=== PATIENT | male | born 1940 | race Caucasian/White ===

== ENCOUNTER 2024-05-02 16:57 | Inpatient (IN) | payer MEDICARE, BC, SELFPAY ==
[2024-05-02] VITALS (10 sets, daily range): BP systolic 77–145; BP diastolic 46–95; PULSE 90–150; RESP 20–28; TEMP 33.9–37.8; O2SAT 70–100; BMI 19.5
--- NOTE | 2024-05-02 16:59 | PC.NURSE ---
Patient to er via ems for possible OD on Xanax and oxycodone, unknown amount and unknown time, patient given 4mg Narcan IN by Fire dept. and 2m Narcan iv, zofran 4mg iv by ems, currently patient awake and moving extremities, groaning intermittently, saying a few incomprehesible words, Dr. Russell at bedside. new orders received.
--- NOTE | 2024-05-02 17:03 | XR_ITS ---
Examination: AP chest single view Technique one AP portable supine chest single view Exam date and time: May 02, 2024 1804 hrs. Comparison 12/31/2023 Indications: Chest pain today. Findings: Mild heart failure Mild enlargement cardiac contour with prominent vascular congestion and septal edema in the perihilar lung bases region Consider superimposed pneumonia left upper lobe Unipolar ventricular lead satisfactory position Impression: Mild CHF Suspicious for early pneumonia left upper lobe
--- NOTE | 2024-05-02 17:03 | EKG_ITS ---
[facility] Test Date: 2024-05-02 Pat Name: ALEJANDRA YA Department: Room: - Gender: Male [employer] General: : 1940 Requested By: Lillie Kwon Order Number: [id number] Reading MD: Lillie Kwon Measurements Intervals [place] Rate: 103 P: OK: QRS: 72 QRSD: 93 T: -15 QT: 283 QTc: 370 Interpretive Statements ATRIAL FIBRILLATION WITH RAPID VENTRICULAR RESPONSE INCOMPLETE RIGHT BUNDLE BRANCH BLOCK [90+ ms QRS DURATION, TERMINAL R IN V1/V2, 40+ ms S IN I/aVL/V4/V5/V6] NONSPECIFIC ST & T-WAVE ABNORMALITY Compared to ECG 02/01/2024 00:53:00 Incomplete right bundle-branch block now present T-wave abnormality now present /store/S0/[id number]/ecg/[id number].pdf
--- NOTE | 2024-05-02 17:04 | XR_ITS ---
Examination: CT brain head without contrast. 2-D sagittal coronal reconstructions Date and time of exam:May 02, 2024 1718 hrs. Comparison 12/31/2023 Indications: Altered mental status today CTDI: vol (mGy):47.5 DLP: (mGycm):985 Technique: Multiple CT axial sections of the brain have been obtained, 5 mm slice thickness. Contrast has not been administered. 2-D sagittal, coronal reconstructions have been obtained Low dose protocols were performed. One or more of the following dose reduction techniques were used; automated exposure control, adjustment of the mA and/or KV according to patient size, use of iterative reconstruction technique. Findings: No significant ventricular enlargement. Stable small area of encephalomalacia left parietal lobe Intra-axial or extra-axial hemorrhage density is not seen. No mass effect or midline shift Basal cisterns are not remarkable. Fourth ventricle is midline. Cranial vault intact. Significant left sphenoid sinusitis Impression: Negative for acute hemorrhage, mass effect or midline shift Advise clinical correlation follow-up accordingly
[2024-05-02 17:15] LABS: Basophils % (Auto) 0 % (0-2.5); Eosinophils # (Auto) 0.1 Thou/mm3 (0.0-0.5); Eosinophils % (Auto) 1 % (0-10); Hemoglobin 12.4 g/dL (13.5-16.0); Immature Granulocytes % (Auto) 1 % (0-0); Immature Granulocytes Auto 0.13 Thou/mm3 (0.00-0.00); Lymphocytes # (Auto) 1.6 Thou/mm3 (1.0-4.8); Lymphocytes % (Auto) 11 % (10-50); Mean Corpuscular HGB Conc 32.6 g/dl (31.0-37.0); Mean Corpuscular Hemoglobin 34.1 pg (25.0-35.0); Mean Corpuscular Volume 104 fL (80-100); Monocytes # (Auto) 0.7 Thou/mm3 (0.0-0.8); Monocytes % (Auto) 5 % (0-12); Neutrophils # (Auto) 11.8 Thou/mm3 (1.8-7.7); Neutrophils % (Auto) 83 % (37-80); Nucleated Red Blood Cell % 0 /100 WBC (0); Platelet Count 338 Thou/mm3 (140-440); RDW Standard Deviation 57.4 fL (35.1-43.9); Red Blood Count 3.64 Miln/mm3 (4.50-5.90); White Blood Count 14.2 Thou/mm3 (3.8-10.6)
--- NOTE | 2024-05-02 17:28 | PC.LAC ---
unable to do mental healh assessment and columbia scale do to patient altered mental status.
[2024-05-02 17:30] LABS: INR 1.2 (0.9-1.3); Partial Thromboplastin Time 24.9 Seconds (22.0-36.0); Prothrombin Time 12.8 Seconds (9.0-12.2)
[2024-05-02 17:34] LABS: Collection Type, Urine Clean Catch
[2024-05-02 17:38] LABS: Bilirubin,Urine Negative (Negative); Blood,Urine 2+ (Negative); Clarity,Urine Clear (Clear/Hazy); Color,Urine Lt-Yellow (Lt Yel-Yel); Culture Indicated,Urine Not Indicated; Glucose, Urine Negative (Negative); Ketones,Urine Negative (Negative); Leukocyte Esterase,Urine Negative (Negative); Nitrite,Urine Negative (Negative); Protein,Urine Negative (Neg - Trace); RBC,Urine 18 /hpf (0-3); Squamous Epithelial Cell,Urine < 1 /hpf (0-5); Urobilinogen,Urine Negative mg/dL (0.0-1.0); WBC,Urine 2 /hpf (0-5)
--- NOTE | 2024-05-02 17:41 | PD.EDOVER ---
ED Overdose RME/HPI General Chief Complaint: Overdose Stated Complaint: OD Time Seen by Provider: 05/02/24 16:59 Arrival date/time: 05/02/24 16:57 RME / HPI RME / HPI Narrative: DR. RUSSELL MAIN ED EVALUATION: 83 year old male presents to the Emergency Department [facility] with complaint of overdosing on Ativan and Oxycodone 30. Patient was found down at home and EMS was called and fire arrived first on scene and started bagging the patient. Fire gave intranasal Narcan and then EMS gave more including IV Narcan, total of 4 intranasal and 2 IV Narcan given. The bottles were mostly full so patient probably accidentally overdosed. PMHx: Atrial fibrillation, hypertension, peripheral osteoarthritis, recurrent ground-level mechanical falls (secondary to syncopal episodes due to symptomatic bradycardia). Related Data Home Medications ?Medication ?Instructions ?Recorded ?Confirmed alprazolam 2 mg tablet 2 mg PO BID 01/08/21 01/01/24 sertraline 50 mg tablet 50 mg PO TID 01/08/21 01/01/24 apixaban 5 mg tablet (Eliquis) 5 mg PO BID 04/04/22 01/01/24 amlodipine 5 mg-benazepril 20 mg 1 cap PO BID 01/01/24 01/01/24 capsule finasteride 5 mg tablet 5 mg PO QDAY 01/01/24 01/01/24 gabapentin 400 mg tablet 400 mg PO TID 01/01/24 01/01/24 tamsulosin 0.4 mg capsule 0.4 mg PO QDAY 01/01/24 01/01/24 Allergies Allergy/AdvReac Type Severity Reaction Status Date / Time No Known Allergies Allergy Verified 01/08/21 02:47 Review of Systems Review of Systems ROS Unobtainable: unobtainable due to mental status Past Medical History Past Medical History CARDIAC: Positive Atrial Fibrillation, Hypercholesterolemia, Congestive Heart Failure and Hypertension MUSCULOSKELETAL: Positive Arthritis OTHER HISTORY: Positive Falls Surgical History SURGICAL: Positive Pacemaker Social History SMOKING STATUS: Unknown if ever smoked SECOND HAND EXPOSURE: No ED Exam Narrative Physical exam: GENERAL APPEARANCE: sleepy but arousable; after EMS gave Narcan, the patient was waking up more, well-developed, well-nourished. VITALS: All vitals were reviewed and the pulse ox is 100% on oxymask with flow rate 10. HEENT: Normocephalic, atraumatic; pupils equal, round, reactive to light; EOMI; mucous membranes pink, moist; oropharynx clear NECK: Supple LUNGS: CTABL; no wheezes, no rales, no rhonchi HEART: Regular rate, regular rhythm; normal S1, S2; no murmurs ABDOMEN: non distended; normal BS; soft, no tenderness, no guarding, no rebound; no masses, no organomegaly, no hernia BACK: no CVA tenderness EXTREMITIES: atraumatic; no edema NEUROLOGIC: awake; alert and oriented; cranial nerves II-XII grossly intact; no focal sensory or motor deficits PSYCHIATRIC: appropriate mood and affect SKIN: warm, dry, normal color; no rashes Course Course Course Narrative: 1800: Patient was signed out to Dr. Aquino. Past medical, surgical, social and family history reviewed. Vitals and home medications reviewed. Results and treatment plan discussed. They will assume the care of the patient at this time and will follow the patient, pending diagnostic tests and final disposition. Quality Measures none Orders Category Date Time Status Bedside COVID-19 Antigen Test NOW Care 05/03/24 01:50 Active COVID-19 Screening Questionnaire NOW Care 05/03/24 00:[address] Screening NOW Care 05/02/24 21:51 Active Orthotic/Prosthetic Practitioner NOW Care 05/02/24 17:03 Active Decision to Admit X1 Care 05/03/24 00:48 Completed EKG (ED ONLY) *Do not use* NOW Care 05/02/24 17:03 Completed In and Out Catheter X1 Care 05/02/24 17:22 Completed Initiate Warming Therapy NOW Care 05/02/24 17:[address] abdomen pelvis w con Stat Exams 05/02/24 21:[address] head/brain wo con Stat Exams 05/02/24 17:[address] lumbar spine wo con Stat Exams 05/03/24 01:42 Completed EKG (ED Only) Stat Exams 05/02/24 17:03 Draft XR chest 1V portable Stat Exams 05/02/24 17:03 Completed Acetaminophen Stat Lab 05/02/24 21:36 Completed B-Type Natriuretic Peptide Stat Lab 05/02/24 17:08 Completed Blood Culture (Lab) Stat Lab 05/02/24 18:12 Received CBC Stat Lab 05/02/24 17:08 Completed Comprehensive Metabolic Panel Stat Lab 05/02/24 18:08 Completed Drug Screen,Urine Stat Lab 05/02/24 17:30 Completed Lactate (Lactic Acid) Stat Lab 05/02/24 18:08 Completed Lactic Acid [Lactate (Lactic Acid)] Stat Lab 05/02/24 21:36 Completed Magnesium Stat Lab 05/02/24 18:08 Completed Partial Thromboplastin Time Stat Lab 05/02/24 17:08 Completed Procalcitonin Stat Lab 05/02/24 18:08 Completed Prothrombin Time with INR Stat Lab 05/02/24 17:08 Completed Troponin I Stat Lab 05/02/24 18:08 Completed UA, C/S IF [Urinalysis, C/S if Indicated] Stat Lab 05/02/24 17:30 Completed Azithromycin Inj [Zithromax Inj] 500 mg Med 05/02/24 18:44 Discontinued Sodium Chloride 0.9% 250 ml [Ns] 250 ml IV X1 Sodium Chloride 0.9% 1000 ml [Ns] 2,259 ml Med 05/02/24 20:42 Discontinued IV 2,259 mls/hr cefTRIAXone [Rocephin] 1,000 mg Med 05/02/24 18:44 Discontinued Sodium Chloride 0.9% (P) [Ns 0.9% (P)] 50 ml IV X1 Oxygen Delivery PRN RT 05/02/24 17:15 Active Vital Signs Vital signs: Vital Signs Temperature 93.0 F L 05/02/24 16:59 Pulse Rate 144 H 05/02/24 16:59 Respiratory Rate 28 H 05/02/24 16:59 Blood Pressure 145/87 H 05/02/24 16:59 Pulse Oximetry (%) 100 05/02/24 16:59 Oxygen Delivery Method Oxy Mask 05/02/24 16:59 Oxygen Flow Rate 10 05/02/24 16:59 Overdose MDM Narrative MDM Narrative:: IRhoda am scribing for and in the presence of Dr. Russell. Patient data External records reviewed:: [facility] previous records (Reviewed last ED visit dated 02/01/24, discharged with the following: Generalized weakness) and EMS form Clinical information provided by:: patient and EMS Social determinants that could affect healthcare access:: none Patient has the following chronic illnesses:: Atrial fibrillation, hypertension, peripheral osteoarthritis, recurrent ground-level mechanical falls (secondary to syncopal episodes due to symptomatic bradycardia). How is presenting disease/condition affected by chronic disease/condition?: uneffected by Evaluation data The following diagnostics were reviewed and interpreted by me:: lab results, radiology exam(s) and EKG tracing(s) (atrial fibrillation with rapid ventricular response, rate 103, incomplete right bundle branch block,) Lab and/or radiology exams considered but not ordered:: none Interpretation Summary: Pending diagnostic tests. Medications / Prescriptions Medications or Prescriptions considered but not ordered:: none Medication administrations:: Medication Administration History Acetaminophen (Acetaminophen 325 Mg Tablet) 650 mg PO Q6H PRN PRN Reason: Fever >100.4 or Pain Stop: 06/02/24 01:52 Albuterol/Ipratropium (Albuterol/Ipratropium (Duoneb) Rt Eve 3 Ml Nebu) 3 ml INH Q6HRRT PRN PRN Reason: Shortness of breath or wheezing Stop: 06/02/24 06:59 Apixaban (Apixaban 2.5 Mg Tablet) 5 mg PO BID PARDEEP Stop: 06/02/24 08:59 Azithromycin (Azithromycin 250 Mg Tablet) 500 mg PO QPM PARDEEP Stop: 05/06/24 20:59 Ceftriaxone Sodium/Dextrose (Rocephin/D5w 1gm Iv Premix) 50 mls @ 100 mls/hr IV QPM PARDEEP Stop: 05/10/24 20:59 Ondansetron HCl (Ondansetron Inj 2 Mg/Ml Inj 2 Ml) 4 mg IV Q6H PRN; Protocol PRN Reason: NAUSEA OR VOMITING Stop: 06/02/24 01:52 Discontinued Medications Ceftriaxone Sodium 1,000 mg/ (Sodium Chloride) 50 mls @ 100 mls/hr IV X1 ONE Stop: 05/02/24 19:13 Last Infusion: 05/02/24 19:51 Dose: Infused Documented By: Admin: 05/02/24 19:10 Dose: 100 mls/hr Documented By: LISA Azithromycin 500 mg/ Sodium (Chloride) 250 mls @ 250 mls/hr IV X1 ONE Stop: 05/02/24 19:43 Last Infusion: 05/02/24 20:47 Dose: Infused Documented By: Admin: 05/02/24 19:10 Dose: 250 mls/hr Documented By: LISA Sodium Chloride (Ns) 2,259 mls @ 2,259 mls/hr 30 ml/kg infuse over 60 min (2259 ml) IV .Q1H ONE Stop: 05/02/24 21:41 Last Infusion: 05/02/24 22:30 Dose: Infused Documented By: Admin: 05/02/24 20:46 Dose: 2,259 mls/hr Documented By: ADRIEN Azithromycin 500 mg/ Sodium (Chloride) 250 mls @ 250 mls/hr IV QDAY PARDEEP Stop: 05/06/24 01:56 Last Admin: 05/03/24 07:25 Dose: Not Given Documented By: BETHANY Non-Admin Reason: Discontinued Sodium Chloride (Sodium Chloride Rt 10% 15 Ml Nebu) 5 ml INH X1 ONE Stop: 05/03/24 01:54 see above if any Consultations Consultation(s) initiated? (list below): No Diagnosis Overdose Differential Diagnosis: poisoning by opiate or related narcotic, drug overdose and accidental drug ingestion Most likely diagnosis given after review of the tests above:: No official diagnoses at this time, still pending diagnostic tests. Patient signout to the maintenance technician 2nd shift provider. Admission Indicated Admission indicated?: not indicated Explain why admission is indicated or not indicated:: No final disposition plan at this time, still pending diagnostic tests. Patient signout to the maintenance technician 2nd shift provider. Admission Request Was there a request for admission?: No Disposition Plan Disposition Plan: other (specify) (Patient signout to the maintenance technician 2nd shift provider. ) Discharge Plan Plan Patient Disposition: Admit Acute Care w/in Hospital Patient condition on transfer: Stable Problem List Clinical Impression: Altered level of consciousness, Community acquired pneumonia, Hypothermia
[2024-05-02 17:44] LABS: B-Type Natriuretic Peptide 135 pg/mL (0-100)
--- NOTE | 2024-05-02 17:49 | PC.NURSE ---
Per dr. Russell, patient did not overdose, appropriate amount of medication are in his xanax and oxycodone bottles, no need to call poison control.
[2024-05-02 17:56] LABS: Amphetamine/Methamp Scrn,U Negative (Negative); Barbiturate Screen,Urine Negative (Negative); Benzodiazepines Screen,Urine Positive (Negative); Benzoylecgonine Screen, Ur Negative (Negative); Fentanyl Screen,Urine Negative (Negative); Opiate Screen,Urine Positive (Negative); THC Screen,Urine Negative (Negative)
[2024-05-02 18:21] LABS: Lactate (Lactic Acid) 3.4 mMol/L (0.4-2.0)
--- NOTE | 2024-05-02 18:40 | PC.NURSE ---
liter of LR infused from ems.
--- NOTE | 2024-05-02 18:43 | PD.EDADDENDU ---
Emergency Room Addendum Addendum Narrative: Blood pressure 91/65 with a heart rate of 94, 99% on oxygen, chest x-ray noted with left sided pneumonia.
[2024-05-02] MEDS: AZITHROMYCIN INJ 500 MG in SODIUM CHLORIDE 0.9% 250 ML 250 ML 250 MG IV (19:10)
[2024-05-02] MEDS: cefTRIAXone 1,000 MG in SODIUM CHLORIDE 0.9% (P) 50 ML 100 MG IV (19:10)
[2024-05-02 20:06] LABS: Alanine Aminotransferase 41 U/L (10-49); Albumin/Globulin Ratio 1.3 (1.2-2.2); Alkaline Phosphatase 139 U/L (46-116); Anion Gap 9 (7-16); Aspartate Amino Transferase 55 U/L (0-34); BUN/Creatinine Ratio 21 Ratio (12-20); Bilirubin,Total 0.4 mg/dL (0.3-1.2); Blood Urea Nitrogen 21 mg/dL (9-23); Calcium 9.3 mg/dL (8.3-10.6); Calcium (Corrected) 9.3 mg/dL (8.5-10.1); Carbon Dioxide 24.1 mMol/L (20.0-31.0); Chloride 107 mMol/L (98-107); Estimated Creatinine Clearance 49.4 mL/min (>60); Globulin 3.2 gm/dL (2.3-3.5); Glucose 101 mg/dL (74-106); Magnesium 2.3 mg/dL (1.6-2.6); Osmolality,Calculated 282 (275-295); Potassium 4.1 mMol/L (3.4-5.1); Procalcitonin 0.16 ng/ml (0.0-0.49); Sodium 140 mMol/L (136-145); Total Protein 7.2 gm/dL (5.7-8.2); eGFR > 60 See Note
[2024-05-02] MEDS: SODIUM CHLORIDE 0.9% 1000 ML 2,259 ML 2259 ML IV (20:46)
--- NOTE | 2024-05-02 21:03 | PD.EDADDENDU ---
Emergency Room Addendum <Rhoda Mcmullen - Last Filed: 05/02/24 22:18> Addendum Narrative: 1800: Care assumed from Dr. Russell, the previous shift emergency physician. Past medical, surgical, social and family history reviewed. Vitals and home medications reviewed. I will assume the care of the patient at this time, pending diagnostic tests and final disposition. Please refer to the emergency department record for history and examination from initial visit.? In summary, 83-year-old male with history of atrial fibrillation, hypertension, osteoarthritis, recurrent falls presenting to the emergency department after possibly overdosing accidentally on his medications at home which include Ativan and oxycodone 83 year old male presents to the Emergency Department BIB with complaint of overdosing on Ativan and Oxycodone 30. Sepsis alert initiated at 1754, before my shift. Orders made at this time are congruent with ED Adult Sepsis Order List. Re-evaluation is to be completed. 2045: Fluids started. 2114: Sepsis reassessment performed consisting of lab review, vitals, physical exam including auscultation of heart, lungs, and visual evaluation of capillary refills, mucosal membranes and extremities. Physical exam: Patient lying in the bed in a gown with bear hugger in place. Vital signs reviewed patient has a heart rate of 87, blood pressure of 90/53 and 94% O@ Able to answer questions, open eyes and knows his name is Ernesto. Lungs CTAB 2149: Blood pressure noted to be slightly hypotensive and 30 mL/kg are started. CT head is negative for acute bleed. Likely the effects of taking his additional medications could be causing his altered mental status however sepsis and other metabolic evaluation needs to be completed. While in the emergency department the urinalysis is negative. Repeat lactic acid and 4-hour Tylenol are pending. Will consider CT chest abdomen pelvis to look for additional source for hypotension. Discussed test HPI, PMHx, lab, radiology results and/or management with hospitalist. Will admit for further evaluation and management. Accepts patient for admission. Diagnoses: Altered level of consciousness, Community acquired pnemonia, Hypothermia CRITICAL CARE: TIME: 30 minutes. The high probability of sudden, clinically significant deterioration in the patient?s condition required the highest level of my preparedness to intervene urgently. The services I provided to this patient were to treat and/or prevent clinically significant deterioration. Services included the following: chart data review, reviewing nursing notes and/or old charts, documentation time, financial services consultant collaboration regarding findings and treatment options, medication orders and management, direct patient care, vital sign assessments and ordering, interpreting and reviewing diagnostic studies and lab tests. Aggregate critical care time includes only time during which I was engaged in work directly related to the patient?s care, as described above, whether at bedside or elsewhere in the Emergency Department. It did not include time spent performing other reported procedures or the services of residents, students, nurses or physician assistants. RADIOLOGY Procedure(s): CT head/brain wo con Accession Number(s): [id number] cc: Junior Blount MD; Chris Barrett MD; Lillie Russell MD~ Examination: CT brain head without contrast. 2-D sagittal coronal reconstructions Date and time of exam:May 02, 2024 1718 hrs. Comparison 12/31/2023 Indications: Altered mental status today CTDI: vol (mGy):47.5 DLP: (mGycm):985 Technique: Multiple CT axial sections of the brain have been obtained, 5 mm slice thickness. Contrast has not been administered. 2-D sagittal, coronal reconstructions have been obtained Low dose protocols were performed. One or more of the following dose reduction techniques were used; automated exposure control, adjustment of the mA and/or KV according to patient size, use of iterative reconstruction technique. Findings: No significant ventricular enlargement. Stable small area of encephalomalacia left parietal lobe Intra-axial or extra-axial hemorrhage density is not seen. No mass effect or midline shift Basal cisterns are not remarkable. Fourth ventricle is midline. Cranial vault intact. Significant left sphenoid sinusitis Impression: Negative for acute hemorrhage, mass effect or midline shift Advise clinical correlation follow-up accordingly Dictated By: Chris Barrett MD Procedure(s): XR chest 1V portable Accession Number(s): [id number] cc: Junior Blount MD; Chris Barrett MD; Lillie Russell MD~ Examination: AP chest single view Technique one AP portable supine chest single view Exam date and time: May 02, 2024 1804 hrs. Comparison 12/31/2023 Indications: Chest pain today. Findings: Mild heart failure Mild enlargement cardiac contour with prominent vascular congestion and septal edema in the perihilar lung bases region Consider superimposed pneumonia left upper lobe Unipolar ventricular lead satisfactory position Impression: Mild CHF Suspicious for early pneumonia left upper lobe Dictated By: Chris Barrett MD <Ethel Aquino MD - Last Filed: 05/02/24 21:50> Addendum Narrative: 1800: Care assumed from Dr. Russell, the previous shift emergency physician. Past medical, surgical, social and family history reviewed. Vitals and home medications reviewed. I will assume the care of the patient at this time, pending diagnostic tests and final disposition. Please refer to the emergency department record for history and examination from initial visit.? In summary, 83-year-old male with history of atrial fibrillation, hypertension, osteoarthritis, recurrent falls presenting to the emergency department after possibly overdosing accidentally on his medications at home which include Ativan and oxycodone 83 year old male presents to the Emergency Department [facility] with complaint of overdosing on Ativan and Oxycodone 30. Physical exam: Patient lying in the bed in a gown with bear hugger in place. Vital signs reviewed patient has a heart rate of 87, blood pressure of 90/53 and 94% O@ Able to answer questions, open eyes and knows his name is Ernesto. Lungs CTAB 2149: Blood pressure noted to be slightly hypotensive and 30 mL/kg are started. CT head is negative for acute bleed. Likely the effects of taking his additional medications could be causing his altered mental status however sepsis and other metabolic evaluation needs to be completed. While in the emergency department the urinalysis is negative. Repeat lactic acid and 4-hour Tylenol are pending. Will consider CT chest abdomen pelvis to look for additional source for hypotension. RADIOLOGY Procedure(s): CT head/brain wo con Accession Number(s): [id number] cc: Junior Blount MD; Chris Barrett MD; Lillie Russell MD~ Examination: CT brain head without contrast. 2-D sagittal coronal reconstructions Date and time of exam:May 02, 2024 1718 hrs. Comparison 12/31/2023 Indications: Altered mental status today CTDI: vol (mGy):47.5 DLP: (mGycm):985 Technique: Multiple CT axial sections of the brain have been obtained, 5 mm slice thickness. Contrast has not been administered. 2-D sagittal, coronal reconstructions have been obtained Low dose protocols were performed. One or more of the following dose reduction techniques were used; automated exposure control, adjustment of the mA and/or KV according to patient size, use of iterative reconstruction technique. Findings: No significant ventricular enlargement. Stable small area of encephalomalacia left parietal lobe Intra-axial or extra-axial hemorrhage density is not seen. No mass effect or midline shift Basal cisterns are not remarkable. Fourth ventricle is midline. Cranial vault intact. Significant left sphenoid sinusitis Impression: Negative for acute hemorrhage, mass effect or midline shift Advise clinical correlation follow-up accordingly Dictated By: Chris Barrett MD Procedure(s): XR chest 1V portable Accession Number(s): [id number] cc: Junior Blount MD; Chris Barrett MD; Lillie Russell MD~ Examination: AP chest single view Technique one AP portable supine chest single view Exam date and time: May 02, 2024 1804 hrs. Comparison 12/31/2023 Indications: Chest pain today. Findings: Mild heart failure Mild enlargement cardiac contour with prominent vascular congestion and septal edema in the perihilar lung bases region Consider superimposed pneumonia left upper lobe Unipolar ventricular lead satisfactory position Impression: Mild CHF Suspicious for early pneumonia left upper lobe Dictated By: Chris Barrett MD <Yolette Tu - Last Filed: 05/03/24 00:49> Addendum Narrative: 1800: Care assumed from Dr. Russell, the previous shift emergency physician. Past medical, surgical, social and family history reviewed. Vitals and home medications reviewed. I will assume the care of the patient at this time, pending diagnostic tests and final disposition. Please refer to the emergency department record for history and examination from initial visit.? In summary, 83-year-old male with history of atrial fibrillation, hypertension, osteoarthritis, recurrent falls presenting to the emergency department after possibly overdosing accidentally on his medications at home which include Ativan and oxycodone 83 year old male presents to the Emergency Department [facility] with complaint of overdosing on Ativan and Oxycodone 30. Sepsis alert initiated at 1754, before my shift. Orders made at this time are congruent with ED Adult Sepsis Order List. Re-evaluation is to be completed. 2045: Fluids started. 2114: Sepsis reassessment performed consisting of lab review, vitals, physical exam including auscultation of heart, lungs, and visual evaluation of capillary refills, mucosal membranes and extremities. Physical exam: Patient lying in the bed in a gown with bear hugger in place. Vital signs reviewed patient has a heart rate of 87, blood pressure of 90/53 and 94% O2 Able to answer questions, open eyes and knows his name is Ernesto. Lungs CTAB 2149: Blood pressure noted to be slightly hypotensive and 30 mL/kg are started. CT head is negative for acute bleed. Likely the effects of taking his additional medications could be causing his altered mental status however sepsis and other metabolic evaluation needs to be completed. While in the emergency department the urinalysis is negative. Repeat lactic acid and 4-hour Tylenol are pending. Will consider CT chest abdomen pelvis to look for additional source for hypotension. 0030: Patient does not complain of any abdominal pain at this time. 0045: Discussed test HPI, PMHx, lab, radiology results and/or management with Dr. Keith. Will admit for further evaluation and management. Accepts patient for admission. Diagnoses: Altered level of consciousness, Community acquired pneumonia, Hypothermia CRITICAL CARE: TIME: 35 minutes. The high probability of sudden, clinically significant deterioration in the patient?s condition required the highest level of my preparedness to intervene urgently. The services I provided to this patient were to treat and/or prevent clinically significant deterioration. Services included the following: chart data review, reviewing nursing notes and/or old charts, documentation time, financial services consultant collaboration regarding findings and treatment options, medication orders and management, direct patient care, vital sign assessments and ordering, interpreting and reviewing diagnostic studies and lab tests. Aggregate critical care time includes only time during which I was engaged in work directly related to the patient?s care, as described above, whether at bedside or elsewhere in the Emergency Department. It did not include time spent performing other reported procedures or the services of residents, students, nurses or physician assistants. RADIOLOGY Procedure(s): CT head/brain wo con Accession Number(s): [id number] cc: Junior Blount MD; Chris Barrett MD; Lillie Russell MD~ Examination: CT brain head without contrast. 2-D sagittal coronal reconstructions Date and time of exam:May 02, 2024 1718 hrs. Comparison 12/31/2023 Indications: Altered mental status today CTDI: vol (mGy):47.5 DLP: (mGycm):985 Technique: Multiple CT axial sections of the brain have been obtained, 5 mm slice thickness. Contrast has not been administered. 2-D sagittal, coronal reconstructions have been obtained Low dose protocols were performed. One or more of the following dose reduction techniques were used; automated exposure control, adjustment of the mA and/or KV according to patient size, use of iterative reconstruction technique. Findings: No significant ventricular enlargement. Stable small area of encephalomalacia left parietal lobe Intra-axial or extra-axial hemorrhage density is not seen. No mass effect or midline shift Basal cisterns are not remarkable. Fourth ventricle is midline. Cranial vault intact. Significant left sphenoid sinusitis Impression: Negative for acute hemorrhage, mass effect or midline shift Advise clinical correlation follow-up accordingly Dictated By: Chris Barrett MD Procedure(s): XR chest 1V portable Accession Number(s): [id number] cc: Junior Blount MD; Chris Barrett MD; Lillie Russell MD~ Examination: AP chest single view Technique one AP portable supine chest single view Exam date and time: May 02, 2024 1804 hrs. Comparison 12/31/2023 Indications: Chest pain today. Findings: Mild heart failure Mild enlargement cardiac contour with prominent vascular congestion and septal edema in the perihilar lung bases region Consider superimposed pneumonia left upper lobe Unipolar ventricular lead satisfactory position Impression: Mild CHF Suspicious for early pneumonia left upper lobe Dictated By: Chris Barrett MD [place] [facility] Report Signed Patient: ERNESTO YA. Record#: [id number] Birthdate: 1940 Age/Sex: 83 / M Location: [facility] Attending Dr: Ordering Physician: Ethel Aquino MD Date of Service: 05/02/24 Procedure(s): CT abdomen pelvis w con Accession Number(s): [id number] cc: Junior Blount MD; Chris Barrett MD; Ethel Aquino MD~ Examination: CT abdomen with intravenous contrast CT pelvis with intravenous contrast 2-D coronal reconstructions 2-D sagittal reconstructions Date and time of exam:May 02, 2024 10:44 PM Indications: Sepsis, fever unknown origin. CTDI: vol (mGy) 6.84 DLP: (mGycm) 377 Technique: Multiple axial sections of the abdomen and pelvis have been obtained. 64 slice high-resolution scanner used. 3 mm axial sections have been obtained, post intravenous injection 60 cc [id number] 2-D sagittal, coronal reconstructions obtained. Low dose protocols were performed. One or more of the following dose reduction techniques were used; automated exposure control, adjustment of the mA and/or KV according to patient size, use of iterative reconstruction technique. Findings: Moderate enlargement cardiac contour Mild atelectasis in the lower lung zones 36 mm cyst anterior liver Spleen is not enlarged Absent gallbladder Common bile duct 10 mm No pancreatic mass Aorta normal size Bilateral renal cysts, bilateral renal calculi, the largest in the lower pole left kidney 11 mm No bowel obstruction Colonic diverticulosis 14 mm calcification in distribution of the left ureterovesical junction Urinary bladder intact Bilateral hip arthroplasties obscure detail in the pelvis Severe osteopenia Impression: Absent gallbladder Common bile duct 10 mm, recommend hepatobiliary sonography follow-up Bilateral renal calculi 14 mm calcification in the left pelvis in distribution of the distal left ureter, favor phlebolith, left ureterovesical junction calculus less likely as there is no left hydronephrosis, clinical correlation advised Dictated By: Chris Barrett MD Signed By: <Electronically signed by Chris Barrett MD in [place]> 05/03/24 0000
[2024-05-02 21:17] LABS: Reflex Lactate? Y
[2024-05-02 21:47] LABS: Lactate (Lactic Acid) 0.9 mMol/L (0.4-2.0)
--- NOTE | 2024-05-02 21:50 | XR_ITS ---
Examination: CT abdomen with intravenous contrast CT pelvis with intravenous contrast 2-D coronal reconstructions 2-D sagittal reconstructions Date and time of exam:May 02, 2024 10:44 PM Indications: Sepsis, fever unknown origin. CTDI: vol (mGy) 6.84 DLP: (mGycm) 377 Technique: Multiple axial sections of the abdomen and pelvis have been obtained. 64 slice high-resolution scanner used. 3 mm axial sections have been obtained, post intravenous injection 60 cc [id number] 2-D sagittal, coronal reconstructions obtained. Low dose protocols were performed. One or more of the following dose reduction techniques were used; automated exposure control, adjustment of the mA and/or KV according to patient size, use of iterative reconstruction technique. Findings: Moderate enlargement cardiac contour Mild atelectasis in the lower lung zones 36 mm cyst anterior liver Spleen is not enlarged Absent gallbladder Common bile duct 10 mm No pancreatic mass Aorta normal size Bilateral renal cysts, bilateral renal calculi, the largest in the lower pole left kidney 11 mm No bowel obstruction Colonic diverticulosis 14 mm calcification in distribution of the left ureterovesical junction Urinary bladder intact Bilateral hip arthroplasties obscure detail in the pelvis Severe osteopenia Impression: Absent gallbladder Common bile duct 10 mm, recommend hepatobiliary sonography follow-up Bilateral renal calculi 14 mm calcification in the left pelvis in distribution of the distal left ureter, favor phlebolith, left ureterovesical junction calculus less likely as there is no left hydronephrosis, clinical correlation advised
[2024-05-02 22:45] LABS: Acetaminophen < 2.0 mcg/mL (10.0-20.0)
[2024-05-03] VITALS (8 sets, daily range): BP systolic 93–144; BP diastolic 58–97; PULSE 74–96; RESP 12–92; TEMP 36.3–37.4; O2SAT 93–100
--- NOTE | 2024-05-03 01:42 | XR_ITS ---
Examination: CT lumbar spine, without contrast. 2-D sagittal reconstructions. 2-D coronal reconstructions. 3-D reconstructions. Date and time of exam:May 03, [address] lumbar spine February 01, 2024 Indications: Back pain with lower extremity paralysis today CTDI: vol (mGy):17.7 DLP: (mGycm):454 Technique: Multiple 1.25 mm axial sections of the venous contrast have been obtained. 2-D sagittal and coronal reconstructions have been obtained. 3-D reconstructions have been obtained. Low dose protocols were performed. One or more of the following dose reduction techniques were used; automated exposure control, adjustment of the mA and/or KV according to patient size, use of iterative reconstruction technique. Findings: Prominent osteopenia Multiple Schmorl's nodes Prominent lumbar spondylosis No lumbar vertebral body compression fracture No spondylolisthesis Lumbar pedicles, laminae, transverse and posterior spinous processes intact L5-S1 3 mm central lumbar disc bulge Impression: Prominent osteopenia No lumbar fracture Multiple Schmorl's nodes No significant acquired spinal stenosis If the patient's cardiac lead is MRI compatible, consider MRI thoracic lumbar spine post intravenous contrast follow-up
--- NOTE | 2024-05-03 02:01 | ESHP_ITS ---
Documentation for date of: 05/03/24 [facility] History of Present Illness Chief complaint: Altered mental status History of present illness: Patient is a 83-year-old male with past medical history of atrial fibrillation on Eliquis, primary hypertension, osteoarthritis, chronic low back pain on opioids, symptomatic bradycardia s/p pacemaker who was BIBA from home to the ED on 05/02/2024 due to altered mental status. Patient was found down for unknown amount of time, suspected possible oxycodone and Xanax overdose, was given naloxone 6 mg total and Zofran 4 mg by EMS. Per ED documentation however medication bottles had sufficient number of pills. Patient was awake, moving extremities, groaning intermittently upon first ED evaluation. Upon evaluation for admission, patient was alert and able to provide history. He states that he does not remember what happened or why he was brought to the hospital. He is oriented to self, , location. Patient last remembers watching football at home. He denies taking any pain medication today and denies intentional overdose. He reports use of his oxycodone about 2x weekly, and states he seldom takes the Xanax. Patient had taken all his other medications as prescribed. He denies any falls. Patient states he is unable to move his legs at this time. Denies pain other than usual back pain. States that normally he walks. He endorses sore throat, cough, phlegm, and subjective fever starting yesterday. He denies shortness of breath, chest pain, nausea, vomiting, diarrhea, dysuria, or incontinence. ED Course: -Initial vitals were BP 145/87, HR 144, RR 28, Temp 93.0, O2 100% on 10L [place]. Sepsis alert was called. Patient became hypotensive to 77/51 which was fluid responsive. -EKG showed afib with RvR with rate 103 -Utox positive for opioids and benzos, UA negative -CXR showed mild CHF and suspicious for early pneumonia left upper lobe -CT head negative -CT abdomen/pelvis with contrast showed absent gallbladder, common bile duct 10 mm, recommend hepatobiliary sonography follow-up, bilateral renal calculi, 14 mm calcification in the left pelvis in distribution of the distal left ureter, favor phlebolith, left ureterovesical junction calculus less likely as there is no left hydronephrosis -Labs significant for WBC 14.2, Hgb 12.4, BUN 21, creatinine 1.0, lactic acid 3.4, AST 55, ALT 41, negative troponin, negative procalcitonin -In the ED, patient was given ceftriaxone 1 g IV x1, azithromycin 500 mg IV x1, and 2.2 L NS bolus -Patient was admitted for sepsis secondary to pneumonia and further monitoring for possible opioid/benzo overdose Review of Systems Review of systems otherwise negative except what is mentioned above. Past Medical History Past Medical History Comments PMH COMMENT: Past Medical History: Atrial fibrillation on Eliquis, primary hypertension, osteoarthritis, chronic low back pain on opioids, symptomatic bradycardia s/p pacemaker Family History: Noncontributory Surgical History: Bilateral hip replacements, left knee replacement, pacemaker placement Social History: About 20-pack year history of smoking, states he smokes less than half pack daily, occasional alcohol use, states drinks whiskey, past history of marijuana use Current Medications: Eliquis 5 mg BID, trazodone 100 mg HS, amlodipine- benezapril 5-20 mg BID, mirtazapine 30 mg HS, oxycodone 30 mg q12h prn, alprazolam 2 mg q12h prn, meloxicam 15 mg qday, sertraline 100 mg qday, tamsulosin 0.4 mg qday, albuterol prn, finasteride 5 mg qday, gabapentin 400 mg TID (Source: Pharmacy prescription history) Allergies: No known drug allergies Exam Vital Signs Temp Pulse Resp BP Pulse Ox O2 Del Method O2 Flow Rate 100.1 F 78 15 93/58 L 98 Room Air 10 05/02/24 22:25 05/03/24 00:01 05/03/24 00:01 05/03/24 00:01 05/03/24 00:01 05/03/24 00:01 05/02/24 22:25 Narrative Exam Physical Exam General: Elderly male, asleep but arousable to voice, able to answer questions appropriately but slow in response, needs repeated prompting at times. HEENT: Normocephalic, atraumatic, mucous membranes very dry. Heart: Irregular rate and rhythm, no murmurs. Lungs: Clear to auscultation with no wheezing or crackles. Abdomen: Soft, nondistended, nontender, positive bowel sounds. ?No guarding or rebound tenderness. Neurologic: Alert and oriented x3, patient unable to move bilateral lower extremities, strength 1/5. Upper extremity strength 5/5 bilaterally. Sensations intact L1-S3 dermatomes bilaterally. Reflexes intact bilaterally. Brudzinski's and Kernig's signs negative. Back: No notable lesions, erythema, warmth, or points of tenderness. Extremities: No edema, dry exfoliation bilateral shins and feet. Skin: No rash or ecchymoses. Results: Labs 05/06/24 08:59 05/06/24 08:59 Labs: Short CBC 05/02/24 Range/Units 17:08 WBC 14.2 H (3.8-10.6) Thou/mm3 Hgb 12.4 L (13.5-16.0) g/dL Hct 38.0 L (41.0-53.0) % Plt Count 338 (140-440) Thou/mm3 BMP 05/02/24 18:08 Sodium 140 Potassium 4.1 Chloride 107 Carbon Dioxide 24.1 BUN 21 Creatinine 1.0 Glucose 101 Calcium 9.3 Cardiac Enzymes 05/02/24 Range/Units 18:08 Troponin I 0.030 (0.0-0.045) ng/mL Liver Function 05/02/24 Range/Units 18:08 Total Bilirubin 0.4 (0.3-1.2) mg/dL AST 55 H (0-34) U/L ALT 41 (10-49) U/L Alkaline Phosphatase 139 H (46-116) U/L Albumin 4.0 (3.4-4.8) gm/dL Urine 05/02/24 Range/Units 17:30 Urine Color Lt-Yellow (Lt Yel-Yel) Urine Clarity Clear (Clear/Hazy) Urine pH 6.0 (5.0-7.0) Ur Specific [place] 1.010 (1.001-1.035) Urine Protein Negative (Neg - Trace) Urine Glucose (UA) Negative (Negative) Quality Measures Quality Measures none Advance care planning discussed with:: patient Medications Home Medications and Allergies Home Medications ?Medication ?Instructions ?Recorded ?Confirmed ?Type apixaban 5 mg tablet (Eliquis) 5 mg PO BID 04/04/22 05/04/24 History finasteride 5 mg tablet 5 mg PO QDAY 01/01/24 05/04/24 History tamsulosin 0.4 mg capsule 0.8 mg PO QPM 01/01/24 05/04/24 History arginine (L-arginine) 500 mg 500 mg PO UD 05/04/24 05/04/24 History capsule cetirizine 10 mg tablet (Zyrtec) 10 mg PO QDAY 05/04/24 05/04/24 History gabapentin 300 mg capsule 300 mg PO QID 05/04/24 05/04/24 History metoprolol succinate 50 mg 50 mg PO QPM 05/04/24 05/04/24 History tablet,extended release 24 hr olanzapine 5 mg tablet (Zyprexa) 5 mg PO TID 05/04/24 05/04/24 History sertraline 50 mg tablet (Zoloft) 50 mg PO BID 05/04/24 05/04/24 History Allergies Allergy/AdvReac Type Severity Reaction Status Date / Time No Known Allergies Allergy Verified 01/08/21 02:47 Visit Medications Acetaminophen (Acetaminophen 325 Mg Tablet) 650 mg PO Q6H PRN PRN Reason: Fever >100.4 or Pain Stop: 06/02/24 01:52 Albuterol/Ipratropium (Albuterol/Ipratropium (Duoneb) Rt Eve 3 Ml Nebu) 3 ml INH Q6HRRT PRN PRN Reason: Shortness of breath or wheezing Stop: 06/02/24 06:59 Apixaban (Apixaban 2.5 Mg Tablet) 5 mg PO BID PARDEEP Stop: 06/02/24 08:59 Ceftriaxone Sodium/Dextrose (Rocephin/D5w 1gm Iv Premix) 50 mls @ 100 mls/hr IV QDAY PARDEEP Stop: 05/10/24 01:56 Azithromycin 500 mg/ Sodium (Chloride) 250 mls @ 250 mls/hr IV QDAY PARDEEP Stop: 05/06/24 01:56 Ondansetron HCl (Ondansetron Inj 2 Mg/Ml Inj 2 Ml) 4 mg IV Q6H PRN; Protocol PRN Reason: NAUSEA OR VOMITING Stop: 06/02/24 01:52 Discontinued Medications Ceftriaxone Sodium 1,000 mg/ (Sodium Chloride) 50 mls @ 100 mls/hr IV X1 ONE Stop: 05/02/24 19:13 Last Infusion: 05/02/24 19:51 Dose: Infused Azithromycin 500 mg/ Sodium (Chloride) 250 mls @ 250 mls/hr IV X1 ONE Stop: 05/02/24 19:43 Last Infusion: 05/02/24 20:47 Dose: Infused Sodium Chloride (Ns) 2,259 mls @ 2,259 mls/hr 30 ml/kg infuse over 60 min (2259 ml) IV .Q1H ONE Stop: 05/02/24 21:41 Last Infusion: 05/02/24 22:30 Dose: Infused Sodium Chloride (Sodium Chloride Rt 10% 15 Ml Nebu) 5 ml INH X1 ONE Stop: 05/03/24 01:54 Assessment & Plan Plan 83-year-old male with past medical history of atrial fibrillation on Eliquis, primary hypertension, osteoarthritis, chronic low back pain on opioids, symptomatic bradycardia s/p pacemaker who was BIBA from home to the ED on 05/02/2024 due to altered mental status. He was admitted for sepsis possibly secondary to pneumonia and further monitoring of possible opioid and benzo overdose. #Severe sepsis, improving #Leukocytosis #Hypotension Secondary to #Community acquired pneumonia Patient met 4/4 SIRS criteria on initial ED evaluation with tachycardia 144, tachypneia 28, hypothermia 93.0, and leukocytosis 14.2. Lactic acid was 3.4 meeting severe sepsis criteria. Became hypotensive to 77/51, patient got 30 ml/kg per sepsis protocol and was fluid responsive with improved lactic acid. CXR shows a possible left upper lobe infiltrate although may not actually be much change from prior CXRs. However the patient does endorse cough, sore throat, phelgm, and subjective fever at home starting yesterday. His CURB-65 score is 4 points indicating recommended admission. -Started IV ceftriaxone 1g qday -Started IV azithromycin 500 mg qday -DuoNebs q6h as needed for SOB or wheezing -Wean O2 as tolerated -Warming measures as needed, Tylenol for fever >100.4 -Blood cultures pending -Ordered sputum culture #Altered mental status, improving #Possible opioid and benzodiazepine overdose Patient found down in his home, unknown mechanism. Given 6 mg naloxone with response. Known chronic opioid user with oxycodone 30 mg prescribed for low back pain. Also alprazolam 2 mg for anxiety. Utox positive for opioids and benzos. -Continue neuro checks q4h -Aspiration precautions -Bedside swallow screen - passed, started cardiac diet -Avoiding opioids and benzos #Bilateral lower extremity weakness Patient complaining of being unable to move legs. Physical exam shows 1/5 strength bilateral lower extremities. Back examination revealed no point tenderness, warmth, erythema, fluctuance suggestive of any kind of abscess. Brudzinski's and Kernig's signs negative. Patient denies falls but he was found down with unknown mechanism. Due to concern for cord compression secondary to possible fracture, CT lumbar spine was ordered. Preliminary review of the images does not show any sort of compression, mass, or abscess. Etiology remains uncertain. According to the patient he walks independently and lives alone at home. -Follow up official read CT lumbar spine -Physical therapy referral #History of afib, rate-controlled s/p pacemaker. He takes Eliquis 5 mg BID. Patient states he follows with Dr. Sharp. Upon review of prescribed meds does not appear to be on any rate or rhythm-controlling agents. EKG in ED showed rate 103, initially HR 140-150s however improved after fluid bolus. CHADS-Vasc 3 -Continue home Eliquis 5 mg BID #History of hypertension Patient takes amlodipine-benezapril 5-20 mg BID according to pharmacy records. Patient reports compliance with meds. -Holding home meds due to hypotension #History of chronic low back pain #History of anxiety Patient takes oxycodone 30 mg q12h prn. He is reporting that he does not use this often, and takes it about twice a week. Denies possibility of overdose, intentional or otherwise. Unsure of how reliable patient is. -Holding opioids DVT prophylaxis: Eliquis 5 mg BID GI prophylaxis: Not indicated Diet: Cardiac Hu: None Lines: Peripheral IV Antibiotics: ceftriaxone [05/02/2023- ], azithromycin [05/02/2023- ] CODE STATUS: FULL Reason for hospitalization: Altered mental status, possible overdose of opioid/benzos, sepsis secondary to possible pneumonia Patient plan of care was discussed with the attending physician, Dr. Camp. Rossi Encarnacion, PGY-2 Attending Provider Attestation/Addendum 83-year-old male patient with osteoarthritis, chronic low back pain, hypertension was admitted after he was found down for an unknown period of time. Patient may have overdosed with oxycodone and Xanax He received naloxone. The patient mental status improved after naloxone dose. He was found to have pneumonia will be admitted for IV antibiotic treatment and further monitoring. I discussed with and supervised the resident physician who took care of this patient. I agree with the assessment and plan as above.
[2024-05-03 04:55] LABS: Basophils % (Auto) 0 % (0-2.5); Eosinophils % (Auto) 0 % (0-10); Hemoglobin 10.3 g/dL (13.5-16.0); Immature Granulocytes % (Auto) 1 % (0-0); Immature Granulocytes Auto 0.04 Thou/mm3 (0.00-0.00); Lymphocytes # (Auto) 1.5 Thou/mm3 (1.0-4.8); Lymphocytes % (Auto) 23 % (10-50); Mean Corpuscular HGB Conc 32.2 g/dl (31.0-37.0); Mean Corpuscular Hemoglobin 33.3 pg (25.0-35.0); Mean Corpuscular Volume 104 fL (80-100); Monocytes # (Auto) 0.4 Thou/mm3 (0.0-0.8); Monocytes % (Auto) 7 % (0-12); Neutrophils # (Auto) 4.5 Thou/mm3 (1.8-7.7); Neutrophils % (Auto) 70 % (37-80); Nucleated Red Blood Cell % 0 /100 WBC (0); Platelet Count 251 Thou/mm3 (140-440); RDW Standard Deviation 56.7 fL (35.1-43.9); Red Blood Count 3.09 Miln/mm3 (4.50-5.90); White Blood Count 6.4 Thou/mm3 (3.8-10.6)
[2024-05-03 05:24] LABS: Alanine Aminotransferase 35 U/L (10-49); Albumin, Serum 3.5 gm/dL (3.4-4.8); Albumin/Globulin Ratio 1.3 (1.2-2.2); Alkaline Phosphatase 109 U/L (46-116); Anion Gap 6 (7-16); Aspartate Amino Transferase 45 U/L (0-34); BUN/Creatinine Ratio 28 Ratio (12-20); Bilirubin,Total 0.4 mg/dL (0.3-1.2); Blood Urea Nitrogen 22 mg/dL (9-23); Calcium 8.4 mg/dL (8.3-10.6); Calcium (Corrected) 8.8 mg/dL (8.5-10.1); Carbon Dioxide 26.1 mMol/L (20.0-31.0); Chloride 111 mMol/L (98-107); Creatinine (Component) 0.8 mg/dL (0.6-1.3); Estimated Creatinine Clearance 61.7 mL/min (>60); Globulin 2.7 gm/dL (2.3-3.5); Glucose 96 mg/dL (74-106); Magnesium 2.1 mg/dL (1.6-2.6); Osmolality,Calculated 288 (275-295); Potassium 4.4 mMol/L (3.4-5.1); Sodium 143 mMol/L (136-145); Total Protein 6.2 gm/dL (5.7-8.2); eGFR > 60 See Note
--- NOTE | 2024-05-03 05:28 | PRELIM_ITS ---
CT scan of the lumbar spine without intravenous contrast (axial sections with sagittal and coronal re formats) May 03, 2024 at 0335 hours Clinical History: Bilateral lower extremity paralysis. Compar michael: No prior study is available for comparison. Findings:There are diffuse osteopenia.There is mult ilevel schmoral's nodes , subcortical sclerosis and bony erosions of opposing vertebral endplates.Mod erate degenerative changes are noted in the lumbar spine in the form of marginal osteophytes, decreas ed disc spaces and facet arthropathy, most marked at the L2-L3, L3-L4 and L4-L5 levels causing no sig nificant spinal canal narrowing and mild bilateral neural foraminal narrowing. There is L2/3 ,L3/4 an d L4/5 diffuse posterior disc bulges causing mild spinal canal and neural foraminal stenosis.There is no fracture or subluxation. The soft tissues are unremarkable.Impression:1. No evidence of fracture, subluxation or significant soft tissue injury.2. Lumbar spondylosis.3. Multilevel schmoral's nodes , subcortical sclerosis and bony erosions of opposing vertebral endplates.4. Other findings as describ ed above. Report Electronically Signed By: Fransisca Avendano 05/03/2024 5:27:17 AM [EST]
--- NOTE | 2024-05-03 07:15 | PC.NURSE ---
In to assess pt. Pt with c/o lower back pain and inability to move lower extremities, states this stated when he arrived to ER. Call light placed within reach. Workup in progress, plan to admit.
--- NOTE | 2024-05-03 07:50 | PC.OT ---
Call from daughter, update provided, pt allowed to speak with daughter over the phone.
[2024-05-03] MEDS: LACTULOSE SYRUP 20 GM/30 ML UDC PO ×2 (10:21→20:20)
[2024-05-03] MEDS: APIXABAN 2.5 MG TABLET 5 MG PO (10:24)
--- NOTE | 2024-05-03 11:53 | PC.NURSE ---
teleneuro consult activated, monitor at bedside
[2024-05-03] MEDS: SENNA/DOCUSATE SOD 1 TAB TABLET 2 TAB PO ×2 (12:12→20:21)
--- NOTE | 2024-05-03 12:15 | PC.NURSE ---
TELE-NEURO CONSULT IN PROGRESS. PROVIDER AT BEDSIDE FOR RECOMMENDATIONS.
--- NOTE | 2024-05-03 12:36 | XR_ITS ---
Examination: CT thoracic spine, without contrast. 2-D sagittal reconstructions. 2-D coronal reconstructions. 3-D reconstructions. Date and time of exam:May 03, 2024 1527 hours INDICATIONS: Back pain and leg weakness beginning 2 days ago CTDI: vol (mGy):15.4 DLP: (mGycm):554 Technique: Multiple 1.25 mm axial sections of the thoracic spine without intravenous contrast have been obtained. 2-D sagittal and coronal reconstructions have been obtained. 3-D reconstructions have been obtained. Low dose protocols were performed. One or more of the following dose reduction techniques were used; automated exposure control, adjustment of the mA and/or KV according to patient size, use of iterative reconstruction technique. Findings: Severe osteopenia No thoracic fracture Diffuse [id number] thoracic degenerative disc disease Moderate thoracic spondylosis Thoracic pedicles, laminae, transverse and posterior spinous processes intact Mild bilateral pleural disease Soft tissue axial images demonstrate no focal thoracic disc protrusion IMPRESSION: Severe osteopenia No thoracic fracture Diffuse [id number] thoracic degenerative disc disease No focal thoracic disc protrusion
--- NOTE | 2024-05-03 12:39 | PD.TNEURO ---
Tele Neuro Consultation Consultation Date 05/03/24 Most Recent Vital Signs Last Vital Signs Temp 99.0 F 05/03/24 10:24 Pulse 93 05/03/24 10:24 Resp 20 05/03/24 10:24 BP 129/82 05/03/24 10:24 Pulse Ox 94 L 05/03/24 10:24 O2 Del Method Nasal Cannula 05/03/24 10:24 O2 Flow Rate 2 05/03/24 10:24 Laboratory-Coagulation Panel PT 12.8 Seconds (9.0-12.2) H 05/02/24 17:08 INR 1.2 (0.9-1.3) 05/02/24 17:08 APTT 24.9 Seconds (22.0-36.0) 05/02/24 17:08 Consultation Narrative [facility] TeleNeurology Consult Services Stat Consult Patient Name:???Ernesto Moreno Date of :???[id number] Identification Number:??? Date of Service:???05/03/2024 11:51:14 Diagnosis:?M62.81 - Generalized Muscle Weakness Impression 83 yo M with PMH of HTN, Afib on eliquis, bradycardia s/p PM who was admitted with concern for possible overdose, has been found to have PNA on abx and now noted to not be moving legs. HCT negative for acute abnormalities. CT lumbar spine did not show acute abn's. Is on abx for PNA but currently all vitals stable. Pt currenlty not moving legs and has signs of urinary retention - would be highly concerned for cauda equina syndrome. Would give 10 mg IV decadron now and transfer for emergent NSGY consultation. Would get thoracic spine CT stat if having to wait for emergent transfer. If MRI compatibility is found - would proceed with stat MRI cervical/thoracic/lumbar spine w/ and w/o contrast (likely would be at accepting facility. Further recommendations on steroids per NSGY. Neurology available for any further questions/concerns prior to transfer to accepting facility where further care will be dictated per NSGY. Advanced Imaging:Advanced Imaging Deferred because: Stroke not suspected with clinical presentation and exam Metrics: Dispatch Time: 05/03/2024 11:51:14 Callback Response Time: 05/03/2024 11:56:49 Primary Provider Notified of Diagnostic Impression and Management Plan on: 05/03/2024 12:29:46 CT HEAD: As Per Radiologist CT Head Showed No Acute Hemorrhage or Acute Core Infarct Reviewed Imagingreviewed, L-spine negative Chief Complaint: bl leg weakness History of Present Illness:Patient is a 83 year old Male. 83 yo M with PMH of HTN, Afib on eliquis, bradycardia s/p PM who was admitted with concern for possible overdose, has been found to have PNA on abx and now noted to not be moving legs. Per report from resident taking care of patient. Report is patient was ambulatory at home. Admitted last night after found down by family member (concern for overdose of oxy/xanax but this is not certain). Now here in hospital states he can't move legs or feel legs. Did have urge to urinate earlier (reportedly had not urinated since yesterday and salmon had about 1 l of fluids). No BM here. Has pacemaker so MRI is pending compatibility. C/f PNA but vitals currently stable, is on abx. Patient himself does not move legs. States he senses being touched in feet however. No movements seen in legs but arms stay up with no drift. Is hard of hearing but answers most questions appropriately (when he can hear). ? Past Medical History: ?Hypertension ?Atrial Fibrillation Other PMH:? bradycardia s/p PM Medications: Anticoagulant use:??Yes?eliquis No Antiplatelet use Reviewed EMR for current medications Allergies:? Reviewed Social History: Smoking: Yes Family History: There is no family history of premature cerebrovascular disease pertinent to this consultation ROS : 14 Points Review of Systems was performed and was negative except mentioned in HPI. ? ? Examination: BP(129/82),?Pulse(93), 1A: Level of Consciousness - Alert; keenly responsive?+ 0 1B: Ask Month and Age - Both Questions Right?+ 0 1C: Blink Eyes & Squeeze Hands - Performs Both Tasks?+ 0 2: Test Horizontal Extraocular Movements - Normal?+ 0 3: Test Visual Louie - No Visual Loss?+ 0 4: Test Facial Palsy (Use Grimace if Obtunded) - Normal symmetry?+ 0 5A: Test Left Arm Motor Drift - No Drift for 10 Seconds?+ 0 5B: Test Right Arm Motor Drift - No Drift for 10 Seconds?+ 0 6A: Test Left Leg Motor Drift - No Movement?+ 4 6B: Test Right Leg Motor Drift - No Movement?+ 4 7: Test Limb Ataxia (FNF/Heel-Soliz) - No Ataxia?+ 0 8: Test Sensation - Mild-Moderate Loss: Can Sense Being Touched?+ 1 9: Test Language/Aphasia - Normal; No aphasia?+ 0 10: Test Dysarthria - Mild-Moderate Dysarthria: Slurring but can be understood?+ 1 11: Test Extinction/Inattention - No abnormality?+ 0 NIHSS Score:?10 NIHSS Free Text :?states he is 42 then 82 Spoke with :?primary team including resident at bedside This consult was conducted in real time using interactive audio and video technology. Patient was informed of the technology being used for this visit and agreed to proceed. Patient located in hospital and provider located at home/office setting. Patient is being evaluated for possible acute neurologic impairment and high probability of imminent or life - threatening deterioration.I spent total of 35 minutes providing care to this patient, including time for face to face visit via telemedicine, review of medical records, imaging studies and discussion of findings with providers, the patient and / or family. Dr Lamont Herrera [facility] For Inpatient follow-up with [facility] physician please call [facility] at . As we are not an outpatient service for any post hospital discharge needs please contact the hospital for assistance. If you have any questions for the [facility] physicians or need to reconsult for clinical or diagnostic changes please contact us via [facility] at . ?
--- NOTE | 2024-05-03 13:08 | PC.NURSE ---
[facility] NURSE ADAM WILL REVIEW THE PACKET FAXED, WE ARE REQUESTING A NEUROSPINAL SURGERY
--- NOTE | 2024-05-03 13:16 | ESDS_ITS ---
<Statement entered by Eden Galan MD - 05/03/24 20:28> I discussed with and supervised my co-resident involved in the care of this patient. I agree with the assessment and plan as documented above. Eden Galan,PGY-3 Disclaimer: Despite multiple revisions, due to the dictation software being used, the document below may not be free of grammatical errors including phonetic/typographic errors. However, this does not deter from our commitment to providing health care in the patient's best interest in mind. Planned Discharge Date 05/03/24 DS: Providers Provider Date of admission: 05/03/24 01:51 Primary care physician: Junior Blount MD Admitting Provider: Kirby Camp MD Attending Provider on Admission: Kirby Camp MD Consults: 05/03/24 02:06 Referral Physical Therapy Stat Comment: Physician Instructions: Attending Provider on DC: Khari Chilel DO Discharging Provider: Khari Chilel DO DS: Diagnosis Problem List Completed Was Problem List Reviewed/Reconciled?: Yes Hospital Course Hospital Course Hospital course: 83-year-old male with past medical history of A-fib on Eliquis, hypertension, osteoarthritis, chronic back pain on opioids, and bradycardia s/p pacemaker was admitted to the hospital on 05/03/2024 due to sepsis likely secondary to pneumonia as well as acute encephalopathy. In the ED patient came in with altered mental status and was found down by EMS. Initially patient was tachypneic, tachycardic, hypertensive, and hypothermic. Initial labs were relevant for leukocytosis (14.2), microcytic anemia (Hgb 12.4, MCV 104), lactic acidosis (3.4), and U tox was positive for opiates and benzodiazepines. Initial imaging included chest x-ray which did show some pneumonia of left upper lobe, head CT which did not show any hemorrhage, mass effect, or midline shift, and abdomen/pelvis CT which showed CBD measuring 10 mm, bilateral renal calculi, and 14 mm calcification in distribution of the left ureterovesical junction. Lumbar spine CT did show some osteopenia as well as multiple Schmorl's nodes. Patient was started on IV ceftriaxone and azithromycin for his community-acquired pneumonia as well as blood and sputum cultures were ordered. Patient was given Narcan by EMS for his altered mental status which improved by the time of admission. Patient on initial assessment did mention that he had bilateral lower extremity weakness and initially had 1 out of 5 strength, but on assessment today patient was unable to move bilateral lower extremities therefore teleneurology was consulted given that this was new onset. Additional to this patient was also noticed to have urinary incontinence with a total of 911 cc in the bladder when assessed by bladder scan, Hu catheter was placed. Teleneurology recommended to transfer patient to a tertiary care center for NSGY consultation as there is concern for cauda equina syndrome. Prior to transfer CT thoracic spine without contrast was ordered as well as MRI with and without contrast of cervical, lumbar, and thoracic spine. Patient will be transferred to a tertiary care center for higher level of care. Problem list: #Bilateral lower extremity weakness #Suspicion for cauda equina syndrome #Sepsis likely secondary to community-acquired pneumonia #Community-acquired pneumonia #Acute encephalopathy #Possible opioid and benzodiazepine overdose #Hx of chronic low back pain #Hx of hypertension #Hx of A-fib, rate controlled #Leukocytosis #Hypotension Case disclosed with Attending Dr. Chilel and My senior Dr. Galan PGY3. Ion Haines PGY1 Status at Discharge Overall status at discharge: patient is not back to baseline Time Spent with Patient Time attestation: Total time spent providing and/or coordinating discharge services: >35 min Exam Vital Signs Temp Pulse Resp BP Pulse Ox O2 Del Method O2 Flow Rate 99.0 F 93 20 129/82 94 L Nasal Cannula 2 05/03/24 10:24 05/03/24 10:05/03/24 10:24 05/03/24 10:24 05/03/24 10:24 05/03/24 10:05/03/24 10:24 Narrative Exam General: A/O x3, ill-appearing Eyes: PERRL, EOMI. Anicteric, vision grossly intact. Ears: No ear pain, no ear discharge, Hearing grossly intact. Nose: No nasal discharge. Mouth/Throat: Dry mucous membranes, no redness, no lesions. Neck: Neck supple, non-tender, no cervical lymphadenopathy. Lungs: Clear TIBURCIO to auscultation and percussion, No accessory muscle use. Cardio: Normal S1/S2, irregular rhythm, no murmurs, no JVD Abdomen: Soft,but distended, non-tender, no palpable masses, peristalsis present, no guarding or rebound. Extremities: Symmetrical, no significant deformities, trace peripheral edema , non-tender, peripheral pulses presents. Skin: No rashes, no lesions, warm to touch. Neuro: Unable to move Tiburcio LE, sensation decreased in TIBURCIO LE, UE strength/sensation intact. Discharge Plan Problem List Was Problem List Reviewed/Reconciled?: Yes Plan Patient condition on transfer: Stable Prescriptions/Referrals Prescriptions/Med Rec: No Action finasteride 5 mg Tablet 5 mg PO QDAY tamsulosin 0.4 mg Capsule 0.8 mg PO QPM Eliquis 5 mg tablet 5 mg PO BID Patient Comments: TAKE 1 TABLET BY MOUTH EVERY 12 HOURS cetirizine [Zyrtec] 10 mg Tablet 10 mg PO QDAY metoprolol succinate 50 mg Tablet Extended Release 24 Hr 50 mg PO QPM olanzapine [Zyprexa] 5 mg Tablet 5 mg PO TID gabapentin 300 mg Capsule 300 mg PO QID arginine (L-arginine) 500 mg Capsule 500 mg PO UD sertraline [Zoloft] 50 mg Tablet 50 mg PO BID Referrals: Junior Blount MD [Primary Care Provider] - Patient/Caregiver Discharge Instructions Print Language: Peruvian Quality Discharge Quality Measures VTE prophylaxis
[2024-05-03] MEDS: DEXAMETHASONE SOD PHOS INJ 4 MG/ML VIAL 10 MG IVP (14:43)
[2024-05-03] MEDS: ONDANSETRON INJ 2 MG/ML INJ 2 ML 4 MG IV (15:37)
--- NOTE | 2024-05-03 16:01 | PC.NURSE ---
ADAM FROM [facility] CALLED REGARDING THE TRANSFER, SHE IS REQUESTING A TELENUROLOGY REPORT TO BE FAXED TO HER, THEN SHE WILL CALL BACK
--- NOTE | 2024-05-03 16:45 | PC.NURSE ---
Addendum entered by Kelvin Becerril RN 05/03/24 16:46: Pt will need neurosurgery and spinal surgery transfer. Original Note: [facility] spoke with Resident Lin. Pt will need the inpatient transfer process in order to process transfer.
--- NOTE | 2024-05-03 17:21 | PC.NURSE ---
[facility] DECLINED TRANSFER DUE TO CAPACITY
[2024-05-03] MEDS: cefTRIAXone/D5w 1gm IV premix 50 ML IV (20:20)
[2024-05-03] MEDS: AZITHROMYCIN 250 MG TABLET 500 MG PO (20:20)
[2024-05-04] VITALS (7 sets, daily range): BP systolic 129–146; BP diastolic 82–106; PULSE 79–98; RESP 15–24; TEMP 36–36.3; O2SAT 93–98; BMI 20.4
--- NOTE | 2024-05-04 | XR_ITS ---
Examination: MRI thoracic spine, without intravenous contrast. MRI thoracic spine , with intravenous contrast. Exam date and time: May 04, 2024 1539 hrs. Indications: Bilateral leg weakness centimeters to move legs beginning 2 days ago Technique: Multiple axial, sagittal and coronal images of the thoracic spine have been obtained with the Siemens high-resolution 1.5 [employer] MRI scanner. Images obtained included T2 weighted fat suppressed sagittal sections, TR 3500, TE 46, T2 weighted coronal fat suppressed images, TR 3050, TE 84, T2-weighted transverse fat suppressed images, TR 30-60, TE 63, proton density transverse images, TR 4720, TE 46, and T1 weighted coronal images, TR 560, TE 13. Axial, sagittal and coronal images are obtained post intravenous injection 12 cc gadolinium. Findings: Prominent patient motion severely degrades scan image quality No acute thoracic fracture Mild to moderate diffuse thoracic disc narrowing Postcontrast images demonstrate no abnormal osseous or epidural tumor enhancement, no impingement upon the thoracic cord Impression: Limited study secondary to patient motion No abnormal enhancing epidural tumor impinging upon the thoracic cord Given the patient's presentation, consider brain MRI follow-up pre and postcontrast
--- NOTE | 2024-05-04 | XR_ITS ---
Examination: MRI lumbar spine, without intravenous contrast. MRI lumbar spine , with intravenous contrast. Exam date and time: May 04, 2024 1539 hrs. Indications: Low back pain with bilateral leg weakness, unable to move legs 2 days Technique: Multiple axial, sagittal and coronal images of the lumbar spine have been obtained with the Siemens high-resolution 1.5 [employer] MRI scanner. Images obtained included T2 weighted fat suppressed sagittal sections, TR 3500, TE 46, T2 weighted coronal fat suppressed images, TR 3050, TE 84, T2-weighted transverse fat suppressed images, TR 30-60, TE 63, proton density transverse images, TR 4720, TE 46, and T1 weighted coronal images, TR 560, TE 13. Axial, sagittal and coronal images are obtained post intravenous injection 12 cc gadolinium. Findings: Adequate alignment lumbar vertebral bodies Moderate disc narrowing L2-L3, L3-L4 Diffuse lumbar disc desiccation No lumbar fracture No spondylolisthesis Axial images demonstrate 3 mm disc bulge centrally L2-L3 Postcontrast images demonstrate mild enhancement contiguous margins L2-L3 with cortical erosion at the site No impingement upon the cauda equina Impression: Suspicious for mild osteomyelitis discitis at the L2-L3 level
--- NOTE | 2024-05-04 | XR_ITS ---
Examination: MRI cervical spine, without intravenous contrast. MRI cervical spine , with intravenous contrast. Exam date and time: May 04, 2024 at 1539 hrs. Indications: Bilateral leg weakness 2 days Technique: Multiple axial, sagittal and coronal images of the cervical spine have been obtained with the Siemens high-resolution 1.5 [employer] MRI scanner. Images obtained included T2 weighted fat suppressed sagittal sections, TR 3500, TE 46, T2 weighted coronal fat suppressed images, TR 3050, TE 84, T2-weighted transverse fat suppressed images, TR 30-60, TE 63, proton density transverse images, TR 4720, TE 46, and T1 weighted coronal images, TR 560, TE 13. Axial, sagittal and coronal images are obtained post intravenous injection 12 cc gadolinium. Findings: Adequate alignment cervical vertebral body 6 No cervical fracture Advanced disc narrowing C4-C5, C5-C6, C6-C7 No localized enlargement cervical cord Axial images are degraded by patient motion C4-C5 moderate bilateral neural foraminal stenosis C5-C6 moderate right neural foraminal stenosis C6-C7 advanced bilateral neural foraminal stenosis C examination Addendum will be made to this report when the contrast images are available for interpretation Impression: C6-C7 advanced bilateral neural foraminal stenosis
[2024-05-04 06:15] LABS: Basophils % (Auto) 0 % (0-2.5); Eosinophils % (Auto) 0 % (0-10); Hematocrit 31.9 % (41.0-53.0); Hemoglobin 10.5 g/dL (13.5-16.0); Immature Granulocytes % (Auto) 0 % (0-0); Immature Granulocytes Auto 0.03 Thou/mm3 (0.00-0.00); Lymphocytes # (Auto) 1.4 Thou/mm3 (1.0-4.8); Lymphocytes % (Auto) 21 % (10-50); Mean Corpuscular HGB Conc 32.9 g/dl (31.0-37.0); Mean Corpuscular Hemoglobin 33.8 pg (25.0-35.0); Mean Corpuscular Volume 103 fL (80-100); Monocytes # (Auto) 0.4 Thou/mm3 (0.0-0.8); Monocytes % (Auto) 6 % (0-12); Neutrophils # (Auto) 4.9 Thou/mm3 (1.8-7.7); Neutrophils % (Auto) 73 % (37-80); Nucleated Red Blood Cell # 0.02 Thou/mm3 (0.00-0.00); Nucleated Red Blood Cell % 0 /100 WBC (0); Platelet Count 330 Thou/mm3 (140-440); RDW Standard Deviation 55.9 fL (35.1-43.9); Red Blood Count 3.11 Miln/mm3 (4.50-5.90); White Blood Count 6.7 Thou/mm3 (3.8-10.6)
[2024-05-04 06:49] LABS: Alanine Aminotransferase 33 U/L (10-49); Albumin, Serum 3.7 gm/dL (3.4-4.8); Albumin/Globulin Ratio 1.3 (1.2-2.2); Alkaline Phosphatase 112 U/L (46-116); Anion Gap 8 (7-16); Aspartate Amino Transferase 19 U/L (0-34); BUN/Creatinine Ratio 28 Ratio (12-20); Bilirubin,Total 0.5 mg/dL (0.3-1.2); Blood Urea Nitrogen 17 mg/dL (9-23); Calcium 9.2 mg/dL (8.3-10.6); Calcium (Corrected) 9.4 mg/dL (8.5-10.1); Carbon Dioxide 26.2 mMol/L (20.0-31.0); Chloride 107 mMol/L (98-107); Creatinine (Component) 0.6 mg/dL (0.6-1.3); Estimated Creatinine Clearance 86.1 mL/min (>60); Globulin 2.9 gm/dL (2.3-3.5); Glucose 99 mg/dL (74-106); Magnesium 1.8 mg/dL (1.6-2.6); Osmolality,Calculated 282 (275-295); Phosphorous 2.7 mg/dL (2.4-5.1); Potassium 3.9 mMol/L (3.4-5.1); Sodium 141 mMol/L (136-145); Total Protein 6.6 gm/dL (5.7-8.2); eGFR > 60 See Note
[2024-05-04] MEDS: SENNA/DOCUSATE SOD 1 TAB TABLET 2 TAB PO ×2 (09:23→21:06)
[2024-05-04] MEDS: Magnesium Sulfate 2 GM Ivpb 2 GM/50 ML BAG IV (09:23)
--- NOTE | 2024-05-04 11:02 | PC.CM ---
Addendum entered by Carine Soto RN 05/04/24 18:30: I pushed over MRI images that were done today. I will make a CD and place them in the transfer packet. Addendum entered by Carine Soto RN 05/04/24 17:06: I spoke to Laura at [facility] to follow up on transfer. She stated their doctor spoke to Dr. Lin and he did not feel patient needs a higher level transfer with the images that were completed. Laura stated their doctor told Dr. Lin to get order MRI. The MRI has been ordered. Once it is done we need to push over images and report. I will follow up to see if MRI has been competed and I will push over images if they care done prior to my shift ending. I will report off to night charge nurse if it has not been completed. Addendum entered by Carine Soto RN 05/04/24 12:32: I spoke to Laura with [facility] transfer center. She states they are very and may not have an open bed but I could fax over the information and push over images. I sent information at this time. Addendum entered by Carine Soto RN 05/04/24 12:16: I contacted [facility] and initiated transfer. As per teleneurology recommendations patient needs transfer for cauda equina syndrome. Original Note: 19 I reviewed notes and I see patient needs to be transferred for neurosurgery for spine surgery. I saw [facility] was contacted. I spoke to Lexis at the transfer center and she states they did get a request yesterday but they declined due to capacity. She states they are still at capacity.
[2024-05-04] MEDS: HEPARIN SOD INJ 5000 UNIT/ML VIAL SC ×2 (14:10→21:06)
[2024-05-04] MEDS: LORazepam 2 MG/ML VIAL 1 MG IVP ×2 (15:30→16:30)
--- NOTE | 2024-05-04 15:40 | PC.NURSE ---
Patient in MRI, VS 148/100, 100, 96%. Pt is very anxious, ativan 1 mg IV given.
--- NOTE | 2024-05-04 18:51 | PD.RESPRO ---
Documentation for date of: 05/04/24 Subjective Subjective Interval history: Patient was seen at bedside this morning. No overnight events. Patient has not been transferred yet. Patient is still unable to move his legs. After prolonged discussion with senior health physics technician about patient needing the MRI and patient's pacemaker being compatible with MRI the pacemaker rep talk to the senior health physics technician and later proceeded to the MRI. MRI cervical spine showed C6-C7 bilateral neural foraminal stenosis, lumbar spine MRI showed suspicion for mild osteomyelitis with discitis at L2-L3, and thoracic spine MRI did not show any abnormal enhancing epidural tumor. Otherwise patient is clinical status remains unchanged and we will continue azithromycin and ceftriaxone. Will still await for possible transfer. Order MRI brain with and without contrast as well. Exam Vital Signs Temp Pulse Resp BP Pulse Ox O2 Del Method O2 Flow Rate 97.1 F 89 20 146/106 H 93 L Nasal Cannula 2 05/04/24 16:00 05/04/24 16:00 05/04/24 16:00 05/04/24 16:00 05/04/24 16:00 05/04/24 16:05/04/24 16:00 Narrative Exam General: A/O x3, ill-appearing Eyes: PERRL, EOMI. Anicteric, vision grossly intact. Ears: No ear pain, no ear discharge, Hearing grossly intact. Nose: No nasal discharge. Mouth/Throat: Dry mucous membranes, no redness, no lesions. Neck: Neck supple, non-tender, no cervical lymphadenopathy. Lungs: Clear TIBURCIO to auscultation and percussion, No accessory muscle use. Cardio: Normal S1/S2, irregular rhythm, no murmurs, no JVD Abdomen: Soft,but distended, non-tender, no palpable masses, peristalsis present, no guarding or rebound. Extremities: Symmetrical, no significant deformities, trace peripheral edema , non-tender, peripheral pulses presents. Skin: No rashes, no lesions, warm to touch. Neuro: Unable to move Tiburcio LE, sensation decreased in TIBURCIO LE, UE strength/sensation intact. Objective Labs 05/04/24 05:04 05/04/24 05:04 Labs: Laboratory Results - last 24 hr 05/04/24 05:04 WBC 6.7 RBC 3.11 L Hgb 10.5 L Hct 31.9 L MCV 103 H MCH 33.8 MCHC 32.9 RDW Std Deviation 55.9 H Plt Count 330 D Neut % (Auto) 73 Lymph % (Auto) 21 [place] % (Auto) 6 Eos % (Auto) 0 Baso % (Auto) 0 Neut # (Auto) 4.9 Lymph # (Auto) 1.4 [place] # (Auto) 0.4 Eos # (Auto) 0.0 Baso # (Auto) 0.0 Immature Gran # (Auto) 0.03 H Absolute Nucleated RBC 0.02 H Immature Gran % 0 Nucleated RBC % 0 Sodium 141 Potassium 3.9 D Chloride 107 Carbon Dioxide 26.2 Anion Gap 8 BUN 17 Creatinine 0.6 Estim Creat Clear Calc 86.1 eGFR > 60 BUN/Creatinine Ratio 28 H Glucose 99 Calculated Osmolality 282 Calcium 9.2 Corrected Calcium 9.4 Phosphorus 2.7 Magnesium 1.8 Total Bilirubin 0.5 AST 19 ALT 33 Alkaline Phosphatase 112 Total Protein 6.6 Albumin 3.7 Globulin 2.9 Albumin/Globulin Ratio 1.3 Quality Measures Quality Measures VTE prophylaxis Advance care planning discussed with:: patient Assessment & Plan Assessment Current Active Medications: Generic Name Dose Route Start Last Admin Trade Name Freq PRN Reason Stop Dose Admin Acetaminophen 650 mg 05/03/24 01:53 Acetaminophen 325 Mg Tablet PO 06/02/24 01:52 Q6H PRN Fever >100.4 or Pain Albuterol/Ipratropium 3 ml 05/03/24 01:59 Albuterol/Ipratropium (Duoneb) Rt Eve 3 Ml Nebu INH 06/02/24 06:59 Q6HRRT PRN Shortness of breath or wheezing Azithromycin 500 mg 05/03/24 21:00 05/03/24 20:20 Azithromycin 250 Mg Tablet PO 05/06/24 20:59 500 mg QPM PARDEEP Administration Heparin Sodium (Porcine) 5,000 unit 05/04/24 14:00 05/04/24 14:10 Heparin Sod Inj 5000 Unit/Ml Vial SC 05/18/24 13:59 5,000 unit Q8HR PARDEEP Administration Ceftriaxone Sodium/Dextrose 50 mls @ 100 mls/hr 05/03/24 21:00 05/03/24 20:20 Rocephin/D5w 1gm Iv Premix IV 05/10/24 20:59 100 mls/hr QPM PARDEEP Administration Lactulose 20 gm 05/03/24 09:00 05/04/24 09:27 Lactulose Syrup 20 Gm/30 Ml Udc PO 06/02/24 08:59 Not Given BID [facility] Protocol Ondansetron HCl 4 mg 05/03/24 01:53 05/03/24 15:37 Ondansetron Inj 2 Mg/Ml Inj 2 Ml IV 06/02/24 01:52 4 mg Q6H PRN Administration NAUSEA OR VOMITING Protocol Sennosides 2 tab 05/03/24 09:00 05/04/24 09:23 Senna/Docusate Sod 1 Tab Tablet PO 06/02/24 08:59 2 tab BID PARDEEP Administration Protocol Plan 83-year-old male with past medical history of A-fib on Eliquis, hypertension, osteoarthritis, chronic back pain on opioids, and bradycardia s/p pacemaker was admitted to the hospital on 05/03/2024 due to sepsis likely secondary to pneumonia as well as acute encephalopathy. #Paraplegia #Suspicion for cauda equina syndrome #Ground-level fall #Syncope versus OD #Urinary incontinence ?Patient came in with inability to move his lower extremities after being found on the floor by his ex-. ? Patient stated that he took 3 oxycodone's, marijuana, and Xanax prior to his fall and he did not remember anything afterwards. ? Teleneurology initially stated to transfer patient as there was high suspicion for cauda equina given patient's presentation of lower extremity weakness/immobility and urinary incontinence ?MRI cervical spine showed C6-C7 bilateral neural foraminal stenosis ?Lumbar spine MRI showed suspicion for mild osteomyelitis with discitis at L2-L3 ?Thoracic spine MRI did not show any abnormal enhancing epidural tumor. ?Thoracic spine CT showed degenerative disc disease ? Lumbar spine CT showed multiple schmorls'nodes Plan: ? Pending possible transfer as per teleneurology ? Teleneurology consulted, pursue recommendations ? Will consider in-house neurology consult if patient is still here. ? Brain MRI with and without contrast ordered #Sepsis likely secondary to community-acquired pneumonia #Community-acquired pneumonia #Acute encephalopathy #Possible opioid and benzodiazepine overdose #Hx of chronic low back pain #Leukocytosis #Hypotension ?Patient came in with altered mental status and there was suspicion for overdose from opioids and benzodiazepines to which he admitted to taking 3 oxycodone's as well as Xanax and marijuana prior to the episode of loss of conscious and being found in the floor. ? U tox was positive for opioids and benzos. ? Chest x-ray showed pneumonia ?Patient came in with WBCs of 14.2 ? Blood pressure was on the softer side Plan: ? Continue ceftriaxone and azithromycin ? Will continue to monitor #Hx of hypertension ?Patient blood pressure has been well-controlled during hospital stay, but today was slightly elevated likely due to stress from being in the MRI. ? Will continue to monitor and if blood pressure repair remains elevated will consider starting antihypertensive medication. #Hx of A-fib, rate controlled ?Held Eliquis in the setting of possible transfer for neurosurgery intervention. Disposition: Patient seen in telemetry pending transfer and Brain MRI Diet: cardiac GI prophylaxis: not indicated DVT prophylaxis: heparin sc Code:full Case disclosed with Attending Dr. Ranjana Haines PGY1 Attending Provider Attestation/Addendum I have discussed and was present for the essential components of the history, physical examination, diagnosis, and treatment plan with the resident. I agree with the patient's care as documented by the resident and amended herein by me. Mikal Chilel DO. Patient seen and evaluated this AM. In Short, patient is an 83-year-old male with significant past medical history of atrial fibrillation on Eliquis, hypertension, CBP on chronic opioids, symptomatic bradycardia status post pacemaker placement who presented to the hospital on 05/03 for acute encephalopathy, likely syncope and ground-level fall. Upon arrival, it was noted that time of bedside visit in the ED the patient had an inability to move his bilateral lower extremities and had reduced sensation to light touch and pain. The patient also had urinary retention, stating he had not urinated in the past 24 hours in which a a bladder scan revealed approximately 1 L of urinary retention which confirmed when a Hu was inserted with copious output. Patient was initially thought to have an overdose by the admitting team however the patient could not remember events prior, during or after any events that took place, his first recollection was being in the emergency department. He did endorse today on 05/04 that he may have taken multiple doses of his prescribed opioids as well as a Xanax but still does not remember any falls, etc. We initially suspected cauda equina syndrome and consulted neurology who recommended immediate transfer to tertiary center for further evaluation by neurosurgery. A dose of Decadron was also given. Transfer request has been placed, in the meantime we did order imaging which demonstrated the followin/2: CT abdomen and pelvis was performed demonstrating a CBD of 10 mm, absent gallbladder and a 14 mm calcification in the left pelvis in the distribution of the distal left ureter suggestive of a phlebolith. 05/03: thoracic spine CT demonstrated severe osteopenia however no thoracic fractures were demonstrated, diffuse mild to moderate thoracic degenerative disease was noted. 05/03: a lumbar spine CT demonstrated prominent osteopenia however no lumbar fracture, multiple Schmorl's nodes are noted. 05/04: Cervicle spine MRI performed however significant delays due to questions about his pacemaker compatibility however approval was finally given by cardiology and signed off today, cervical MRI significant for C6-C7 advanced bilateral neuroforaminal stenosis 05/04: thoracic spine MRI demonstrated no abnormal enhancing epidural tumors however study was limited by patient motion 05/04: lumbar spine MRI was performed which was suspicious for mild osteomyelitis/discitis at the L2-L3 level however no impingement upon the cauda equina was noted, no fracture was noted, diffuse lumbar disc desiccation was noted, postcontrast images demonstrated mild enhancement of the continuous margins of L2-L3 with cortical erosion at the site. An MRI brain was also ordered however could not be completed today due to time constraints. No acute events overnight, the patient is frustrated with his present condition understandably. Vital signs stable, patient afebrile overnight, blood cultures NGTD, CBC demonstrating mild anemia with a hemoglobin 10.5, BMP largely unremarkable. Initial chest x-ray also demonstrated pneumonia which the patient is presently on ceftriaxone and azithromycin which we will continue at this time. Transfer pending for further workup and evaluation by neurosurgery. We will also consult in-house neurology tomorrow when Dr Simpson is back from vacation. Medications: Eliquis 5 mg twice daily Azithromycin 500 mg p.o. Ceftriaxone 1 g daily Lactulose 20 g p.o. twice daily Senna Although this document has been carefully reviewed, there may still be some phonetic and other typographical errors. These errors are purely grammatical due to imperfections in the software program and should not be construed in any way to compromise the substance of the patient's medical care during this visit.
[2024-05-04] MEDS: cefTRIAXone/D5w 1gm IV premix 50 ML IV (21:06)
[2024-05-04] MEDS: AZITHROMYCIN 250 MG TABLET 500 MG PO (21:06)
[2024-05-04] MEDS: LACTULOSE SYRUP 20 GM/30 ML UDC PO (21:06)
[2024-05-05] VITALS (8 sets, daily range): BP systolic 115–154; BP diastolic 66–97; PULSE 65–95; RESP 16–30; TEMP 36–36.2; O2SAT 93–98; BMI 20.6
[2024-05-05] MEDS: HEPARIN SOD INJ 5000 UNIT/ML VIAL SC ×3 (05:08→21:16)
[2024-05-05 06:44] LABS: Alanine Aminotransferase 33 U/L (10-49); Albumin, Serum 3.9 gm/dL (3.4-4.8); Albumin/Globulin Ratio 1.3 (1.2-2.2); Alkaline Phosphatase 117 U/L (46-116); Anion Gap 7 (7-16); Aspartate Amino Transferase 36 U/L (0-34); BUN/Creatinine Ratio 25 Ratio (12-20); Bilirubin,Total 0.6 mg/dL (0.3-1.2); Blood Urea Nitrogen 15 mg/dL (9-23); Calcium 9.1 mg/dL (8.3-10.6); Calcium (Corrected) 9.2 mg/dL (8.5-10.1); Carbon Dioxide 27.7 mMol/L (20.0-31.0); Chloride 104 mMol/L (98-107); Creatinine (Component) 0.6 mg/dL (0.6-1.3); Estimated Creatinine Clearance 87.1 mL/min (>60); Glucose 94 mg/dL (74-106); Magnesium 1.9 mg/dL (1.6-2.6); Osmolality,Calculated 278 (275-295); Phosphorous 2.6 mg/dL (2.4-5.1); Potassium 3.5 mMol/L (3.4-5.1); Sodium 139 mMol/L (136-145); Total Protein 6.9 gm/dL (5.7-8.2); eGFR > 60 See Note
[2024-05-05 06:46] LABS: Basophils % (Auto) 0 % (0-2.5); Eosinophils % (Auto) 0 % (0-10); Hematocrit 34.8 % (41.0-53.0); Hemoglobin 11.6 g/dL (13.5-16.0); Immature Granulocytes % (Auto) 0 % (0-0); Immature Granulocytes Auto 0.03 Thou/mm3 (0.00-0.00); Lymphocytes # (Auto) 1.7 Thou/mm3 (1.0-4.8); Lymphocytes % (Auto) 24 % (10-50); Mean Corpuscular HGB Conc 33.3 g/dl (31.0-37.0); Mean Corpuscular Hemoglobin 33.5 pg (25.0-35.0); Mean Corpuscular Volume 101 fL (80-100); Monocytes # (Auto) 0.5 Thou/mm3 (0.0-0.8); Monocytes % (Auto) 7 % (0-12); Neutrophils # (Auto) 4.7 Thou/mm3 (1.8-7.7); Neutrophils % (Auto) 68 % (37-80); Nucleated Red Blood Cell % 0 /100 WBC (0); Platelet Count 242 Thou/mm3 (140-440); RDW Standard Deviation 52.8 fL (35.1-43.9); Red Blood Count 3.46 Miln/mm3 (4.50-5.90); White Blood Count 6.9 Thou/mm3 (3.8-10.6)
--- NOTE | 2024-05-05 07:26 | PC.CC ---
Late Entry 05/04/24: Rounding note: Pending HLOC transfer.
--- NOTE | 2024-05-05 08:04 | PC.CC ---
Pt Ernesto Moreno is an 83 yr old male admitted to hospitalist services for sepsis, PNA. ASW met with pt at bedside to complete initial assessment. At time of encounter pt is noted to be alert and oriented to person, place and situation. Pt able to confirm demographic information. Pt is from home [id number] [place] [address]. Per pt he lives in the home alone. Pt identifies his daughter Pamella Hernandez [phone] as surrogate DM. Per pt prior to admission he did not use any DME in the home. Per pt he does have access to a walker, cane and wheelchair in his home. Pt reports he is independent with his ADLs. Pt is not diabetic and is not on dialysis. Per pt he does not require supplemental O2 in the home. Pt is followed by [facility] Germain for primary care. At time of D/c pt states he will return home. ASW discussed possible recommendations for SNF placement for short term rehab and pt declined any information on this at this time. Per pt his ex Amaris will likely be able to transport him home. Pt unable to provide phone number for his ex or her last name.
[2024-05-05] MEDS: LACTULOSE SYRUP 20 GM/30 ML UDC PO ×2 (08:31→21:16)
[2024-05-05] MEDS: SENNA/DOCUSATE SOD 1 TAB TABLET 2 TAB PO ×2 (08:31→21:16)
--- NOTE | 2024-05-05 08:47 | PC.CC ---
Addendum entered by Yesica Prado RN 05/05/24 08:48: Charge nurse Rebeca made aware Original Note: Luz Marina from [facility] called back to to inform that they will not be accepting the patient and per their team the pt needs no neuro intervention, no follow up is needed, no emergent transfer is needed. Call transferred to Dr. Chilel
--- NOTE | 2024-05-05 13:16 | ESPR_ITS ---
Documentation for date of: 05/05/24 Subjective Subjective Interval history: Patient was examined bedside this morning. He was eating breakfast. On your examination still unable to move bilateral lower legs. No pain sensation. Absent reflexes. Sensation to touch. Still urinary and bladder incontinent. Tried to contact [facility] for possible transfer. Will contact in-house neurologist Dr Simpson she recommended no transfer and treat Osteomyelitis/Discitis ,In mean while pending MRI of head . Exam Vital Signs Temp Pulse Resp BP Pulse Ox O2 Del Method O2 Flow Rate 96.9 F 88 20 154/95 H 96 Nasal Cannula 3 05/05/24 12:00 05/05/24 12:00 05/05/24 12:00 05/05/24 12:00 05/05/24 12:00 05/05/24 12:05/05/24 12:00 Narrative Exam General: A/O x3, ill-appearing Eyes: PERRL, EOMI. Anicteric, vision grossly intact. Ears: No ear pain, no ear discharge, Hearing grossly intact. Nose: No nasal discharge. Mouth/Throat: Dry mucous membranes, no redness, no lesions. Neck: Neck supple, non-tender, no cervical lymphadenopathy. Lungs: Clear TIBURCIO to auscultation and percussion, No accessory muscle use. Cardio: Normal S1/S2, irregular rhythm, no murmurs, no JVD Abdomen: Soft,but distended, non-tender, no palpable masses, peristalsis present, no guarding or rebound. Extremities: Symmetrical, right leg mildly inversion , trace peripheral edema , non-tender, peripheral pulses presents. Skin: No rashes, no lesions, warm to touch. Neuro: Unable to move Tiburcio LE, sensation decreased in TIBURCIO LE, no reflex on B/l lower leg . UE strength/sensation intact. Objective Labs 05/05/24 05:27 05/05/24 05:27 Labs: Laboratory Results - last 24 hr 05/05/24 05:27 WBC 6.9 RBC 3.46 L Hgb 11.6 L Hct 34.8 L MCV 101 H MCH 33.5 MCHC 33.3 RDW Std Deviation 52.8 H Plt Count 242 D Neut % (Auto) 68 Lymph % (Auto) 24 [place] % (Auto) 7 Eos % (Auto) 0 Baso % (Auto) 0 Neut # (Auto) 4.7 Lymph # (Auto) 1.7 [place] # (Auto) 0.5 Eos # (Auto) 0.0 Baso # (Auto) 0.0 Immature Gran # (Auto) 0.03 H Absolute Nucleated RBC 0.00 Immature Gran % 0 Nucleated RBC % 0 Sodium 139 Potassium 3.5 Chloride 104 Carbon Dioxide 27.7 Anion Gap 7 BUN 15 Creatinine 0.6 Estim Creat Clear Calc 87.1 eGFR > 60 BUN/Creatinine Ratio 25 H Glucose 94 Calculated Osmolality 278 Calcium 9.1 Corrected Calcium 9.2 Phosphorus 2.6 Magnesium 1.9 Total Bilirubin 0.6 AST 36 H ALT 33 Alkaline Phosphatase 117 H Total Protein 6.9 Albumin 3.9 Globulin 3.0 Albumin/Globulin Ratio 1.3 Quality Measures Quality Measures VTE prophylaxis Advance care planning discussed with:: patient Assessment & Plan Assessment Current Active Medications: Generic Name Dose Route Start Last Admin Trade Name Freq PRN Reason Stop Dose Admin Acetaminophen 650 mg 05/03/24 01:53 Acetaminophen 325 Mg Tablet PO 06/02/24 01:52 Q6H PRN Fever >100.4 or Pain Albuterol/Ipratropium 3 ml 05/03/24 01:59 Albuterol/Ipratropium (Duoneb) Rt Eve 3 Ml Nebu INH 06/02/24 06:59 Q6HRRT PRN Shortness of breath or wheezing Azithromycin 500 mg 05/03/24 21:00 05/04/24 21:06 Azithromycin 250 Mg Tablet PO 05/06/24 20:59 500 mg QPM PARDEEP Administration Heparin Sodium (Porcine) 5,000 unit 05/04/24 14:00 05/05/24 05:08 Heparin Sod Inj 5000 Unit/Ml Vial SC 05/18/24 13:59 5,000 unit Q8HR PARDEEP Administration Ceftriaxone Sodium/Dextrose 50 mls @ 100 mls/hr 05/03/24 21:00 05/04/24 21:06 Rocephin/D5w 1gm Iv Premix IV 05/10/24 20:59 100 mls/hr QPM PARDEEP Administration Lactulose 20 gm 05/03/24 09:00 05/05/24 08:31 Lactulose Syrup 20 Gm/30 Ml Udc PO 06/02/24 08:59 20 gm BID PARDEEP Administration Protocol Ondansetron HCl 4 mg 05/03/24 01:53 05/03/24 15:37 Ondansetron Inj 2 Mg/Ml Inj 2 Ml IV 06/02/24 01:52 4 mg Q6H PRN Administration NAUSEA OR VOMITING Protocol Sennosides 2 tab 05/03/24 09:00 05/05/24 08:31 Senna/Docusate Sod 1 Tab Tablet PO 06/02/24 08:59 2 tab BID PARDEEP Administration Protocol Plan 83-year-old male with past medical history of A-fib on Eliquis, hypertension, osteoarthritis, chronic back pain on opioids, and bradycardia s/p pacemaker was admitted to the hospital on 05/03/2024 due to sepsis likely secondary to pneumonia as well as acute encephalopathy. #Paraplegia #Suspicion for cauda equina syndrome #Ground-level fall #Syncope versus OD #Urinary incontinence #Osteomyelitis /Discitis ?Patient came in with inability to move his lower extremities after being found on the floor by his ex-. ? Patient stated that he took 3 oxycodone's, marijuana, and Xanax prior to his fall and he did not remember anything afterwards. ? Teleneurology initially stated to transfer patient as there was high suspicion for cauda equina given patient's presentation of lower extremity weakness/immobility and urinary incontinence - Patient still unable to move B/L lower legs, no reflex, no pain sensation just touch sensation ?MRI cervical spine showed C6-C7 bilateral neural foraminal stenosis ?Lumbar spine MRI showed suspicion for mild osteomyelitis with discitis at L2-L3 ?Thoracic spine MRI did not show any abnormal enhancing epidural tumor. ?Thoracic spine CT showed degenerative disc disease ? Lumbar spine CT showed multiple schmorls'nodes ? Brain MRI with and without contrast Pending -Dr Simpson recommended its most likely secondary to will still myelitis/discitis and the patient does not need immediate transfer for now. -Will start the patient on ceftriaxone and vancomycin -Blood culture 24 hr negative -Will consult Dr. Foster kilo reccs #Sepsis likely secondary to community-acquired pneumonia #Community-acquired pneumonia #Acute encephalopathy- resolved #Possible opioid and benzodiazepine overdose #Hx of chronic low back pain #Leukocytosis-resolved #Hypotension-resolved ?Patient came in with altered mental status and there was suspicion for overdose from opioids and benzodiazepines to which he admitted to taking 3 oxycodone's as well as Xanax and marijuana prior to the episode of loss of conscious and being found in the floor. ? U tox was positive for opioids and benzos. ? Chest x-ray showed pneumonia ?Patient came in with WBCs of 14.2 ? Blood pressure was on the softer side ? Continue ceftriaxone 2gm Q day and vancomycin pharmacy to dose ? Will continue to monitor #Hx of hypertension ?Patient blood pressure has been well-controlled during hospital stay, but today was slightly elevated likely due to stress from being in the MRI. -started pt home metoprolol #Hx of A-fib, rate controlled ?Held Eliquis will wait for Dr Louis bello . Disposition: Patient seen in telemetry pending Brain MRI , Dr Tatiana bello and Dr Cristian Bello. Diet: cardiac GI prophylaxis: not indicated DVT prophylaxis: heparin sc Code:full Case disclosed with Attending Dr Autumn Galan MD, PGY-3 Attending Provider Attestation/Addendum I have examined the patient, reviewed labs and imaging findings, discussed the case with the resident(s), and reviewed entered orders. I agree with the plan of care as outlined in this note, with these additional summaries/recommendations: Patient seen at bedside. No acute overnight events. Today at bedside patient is alert and oriented x 3. Patient is still unable to move his legs at this time. Sensation is intact bilaterally although diminished. Absent reflexes bilaterally. Hu catheter in place for urinary retention. No evidence of fecal incontinence. Cervical MRI showed C6-C7 advanced bilateral neural foraminal stenosis and MRI lumbar spine was suspicious for mild osteomyelitis/discitis at the L2-L3 level. Patient reports he was able to ambulate prior to admission although unclear as right foot appears contracted & patient does not appear to be the best historian. Given that mention findings above there is was concern for cauda equina syndrome. Teleneurology was consulted and recommended transfer for neurosurgery evaluation & IV decadron X 1. I spoke with [facility] transfer center today and they reported no neurosurgical intervention needed at this time and patient does not require outpatient follow- up. In-house neurology was consulted and reports findings most likely related to osteomyelitis of the spine and no transfer needed at this time. We will place transfer on hold for now. Patient is still pending MRI brain. Patient started on IV Rocephin and vancomycin. Consult infectious disease. Blood cultures showed no growth at 48 hours. Unclear source of osteomyelitis/discitis of spine. Significant constipation present and continue lactulose. Patient has history of atrial fibrillation and continue home metoprolol succinate XL 50 mg p.o. at bedtime. Eliquis has been on hold for potential neurosurgery intervention although likely not needed and will resume Eliquis in a.m. if no contraindication. Repeat hematology and chemistry panel in AM. Patient updated on the plan and in agreement. Dr. Leyva
--- NOTE | 2024-05-05 15:08 | PC.CC ---
Rounding note: Pending HLOC transfer.
[2024-05-05] MEDS: METOPROLOL SUCCINATE XL 25 MG TABCR 50 MG PO (15:22)
[2024-05-05] MEDS: cefTRIAXone 2 GM in SODIUM CHLORIDE 0.9% (P) 50 ML IV (15:23)
[2024-05-05] MEDS: VANCOMYCIN/NS 1 GM IVPB 200 ML IV ×2 (15:24→21:16)
--- NOTE | 2024-05-05 18:59 | PC.NURSE ---
late entry Dr. Galan called to make aware transfer was cancelled per Dr. Simpson
--- NOTE | 2024-05-05 22:19 | PD.VPROG1 ---
Telemedicine visit statement This visit was conducted with the use of phone was obtained on 05/05/24 at 2219. Documentation for date of: 05/05/24 Subjective Subjective Interval history: Patient is in telemetry, continue to have the weakness in both LE and numbness. Virtual exam Vital Signs Temp Pulse Resp BP Pulse Ox O2 Del Method O2 Flow Rate 96.8 F 76 17 115/66 97 Nasal Cannula 2 05/05/24 20:00 05/05/24 20:00 05/05/24 20:00 05/05/24 20:00 05/05/24 20:00 05/05/24 20:00 05/05/24 20:00 Objective Labs 05/05/24 05:27 05/05/24 05:27 Labs: Laboratory Results - last 24 hr 05/05/24 05:27 WBC 6.9 RBC 3.46 L Hgb 11.6 L Hct 34.8 L MCV 101 H MCH 33.5 MCHC 33.3 RDW Std Deviation 52.8 H Plt Count 242 D Neut % (Auto) 68 Lymph % (Auto) 24 [place] % (Auto) 7 Eos % (Auto) 0 Baso % (Auto) 0 Neut # (Auto) 4.7 Lymph # (Auto) 1.7 [place] # (Auto) 0.5 Eos # (Auto) 0.0 Baso # (Auto) 0.0 Immature Gran # (Auto) 0.03 H Absolute Nucleated RBC 0.00 Immature Gran % 0 Nucleated RBC % 0 Sodium 139 Potassium 3.5 Chloride 104 Carbon Dioxide 27.7 Anion Gap 7 BUN 15 Creatinine 0.6 Estim Creat Clear Calc 87.1 eGFR > 60 BUN/Creatinine Ratio 25 H Glucose 94 Calculated Osmolality 278 Calcium 9.1 Corrected Calcium 9.2 Phosphorus 2.6 Magnesium 1.9 Total Bilirubin 0.6 AST 36 H ALT 33 Alkaline Phosphatase 117 H Total Protein 6.9 Albumin 3.9 Globulin 3.0 Albumin/Globulin Ratio 1.3 Assessment & Plan Problem List (1) Generalized weakness: Status: Acute Assessment and plan: noted that primary team tried to transfer upon recommendation ax per Neurologist but NSG declined as the acute treatment is not needed. MRI LS spine showed mild degenerative changes at L2-3 and L3-4 with mild discitis/osteomyelitis like pattern. Cervical spine showed degenerative changes with bilateral neural foraminal stenosis. Nothing suggestive of cauda equina syndrome noted. Continue with current mgt. Will see him in person to decide about further mgt tomorrow.
[2024-05-06] VITALS (10 sets, daily range): BP systolic 140–149; BP diastolic 78–99; PULSE 60–91; RESP 16–98; TEMP 36–36.4; O2SAT 96–99; BMI 20.5; BMI 12.0; BMI 20.6
--- NOTE | 2024-05-06 | XR_ITS ---
Examination: MRI of brain without intravenous contrast. MRI brain with intravenous contrast. Date and time of exam:May 06, 2024 1728 hrs. Indications: Patient found down unconscious, with worsening lower leg paresthesias and weakness today Technique: Multiple axial and sagittal images of the brain to been obtained. Siemens high-resolution 1.52 Yarelis short bore scanner utilized. Sagittal sections, T1 weighted images, TR 500, TE 14, are performed. Axial sections proton-density and T2-weighted images have been obtained. Inversion recovery axial images, TR 9260, TE 111, TR 2500. Diffusion weighted images, axial sections, TR 4800, TE 128, B value 1000. Axial sections, ADC map, TR 4800, TE 128. Axial and coronal images were also obtained post 13 cc gadolinium administered intravenously. Findings:: Enlargement of the sella turcica is not present. The optic chiasm and infundibular stalk are not remarkable. There is no localized enlargement of the medulla or marisel. Fourth ventricle and cerebellar tonsils appear normal in position. No subacute area of hemorrhage density is seen. Fourth ventricle is midline. Mass in the cerebellopontine angle region is not evident. 7th and 8th nerve complexes exhibit symmetry Globes are symmetrical Orbital musculature including medial lateral rectus muscles do not exhibit abnormality Increased white matter signal is prominent Effacement of the cortical sulcal markings is not identified. Mass effect upon the ventricular system is not identified. Diffusion-weighted images demonstrate 8 mm foci of restricted diffusion symmetrical in the bilateral basal ganglia image 12 Contrast images demonstrate mild enhancement in the bilateral basal ganglia Impression: Foci of restricted diffusion in the basal ganglia with enhancement in the same regions on the postcontrast images, differential would include anoxic ischemic change, underlying neoplastic lesions less likely but not excluded The appearance should be correlated with clinical findings
[2024-05-06] MEDS: HEPARIN SOD INJ 5000 UNIT/ML VIAL SC ×3 (05:22→21:14)
[2024-05-06 06:26] LABS: Phosphorous 3.7 mg/dL (2.4-5.1)
[2024-05-06] MEDS: SENNA/DOCUSATE SOD 1 TAB TABLET 2 TAB PO ×2 (09:01→21:13)
[2024-05-06] MEDS: LACTULOSE SYRUP 20 GM/30 ML UDC PO ×2 (09:01→21:14)
[2024-05-06] MEDS: cefTRIAXone 2 GM in SODIUM CHLORIDE 0.9% (P) 50 ML IV (09:02)
--- NOTE | 2024-05-06 09:27 | ESPR_ITS ---
Documentation for date of: 05/06/24 Subjective Subjective Interval history: Patient seen at bedside this morning. No overnight events. Neurology stated that patient does not need transfer at this time and to treat patient for discitis osteomyelitis. Cauda equina syndrome also less likely as per neurology. Patient today did look a little bit more withdrawn, but this seems to be due to hearing issues. Still pending had brain MRI with and without contrast. Will continue Doxy and Rocephin for now for osteomyelitis as per ID recs. Exam Vital Signs Temp Pulse Resp BP Pulse Ox O2 Del Method O2 Flow Rate 97.5 F 62 23 H 141/83 H 99 Nasal Cannula 3 05/06/24 08:00 05/06/24 08:00 05/06/24 08:00 05/06/24 08:00 05/06/24 08:00 05/06/24 08:00 05/06/24 08:00 Narrative Exam General: A/O x3, ill-appearing Eyes: PERRL, EOMI. Anicteric, vision grossly intact. Ears: No ear pain, no ear discharge, Hearing impaired. Nose: No nasal discharge. Mouth/Throat: Dry mucous membranes, no redness, no lesions. Neck: Neck supple, non-tender, no cervical lymphadenopathy. Lungs: Clear TIBURCIO to auscultation and percussion, No accessory muscle use. Cardio: Normal S1/S2, irregular rhythm, no murmurs, no JVD Abdomen: Soft,but distended, non-tender, no palpable masses, peristalsis present, no guarding or rebound. Extremities: Symmetrical, no significant deformities, trace peripheral edema , non-tender, peripheral pulses presents. Skin: No rashes, no lesions, warm to touch. Neuro: Still unable to move Tiburcio LE, sensation decreased in TIBURCIO LE, UE strength/sensation intact, more withdrawn likely due to impaired hearing. Objective Labs 05/07/24 04:51 05/07/24 04:51 Labs: Laboratory Results - last 24 hr 05/06/24 04:39 Phosphorus 3.7 Magnesium 2.0 Quality Measures Quality Measures VTE prophylaxis Advance care planning discussed with:: patient Assessment & Plan Assessment Current Active Medications: Generic Name Dose Route Start Last Admin Trade Name Freq PRN Reason Stop Dose Admin Acetaminophen 650 mg 05/03/24 01:53 Acetaminophen 325 Mg Tablet PO 06/02/24 01:52 Q6H PRN Fever >100.4 or Pain Albuterol/Ipratropium 3 ml 05/03/24 01:59 Albuterol/Ipratropium (Duoneb) Rt Eve 3 Ml Nebu INH 06/02/24 06:59 Q6HRRT PRN Shortness of breath or wheezing Heparin Sodium (Porcine) 5,000 unit 05/04/24 14:00 05/06/24 05:22 Heparin Sod Inj 5000 Unit/Ml Vial SC 05/18/24 13:59 5,000 unit Q8HR PARDEEP Administration Vancomycin/Sodium Chloride 200 mls @ 96 mls/hr 05/05/24 14:30 05/05/24 21:16 Vancomycin/Ns 1 Gm Ivpb IV 05/12/24 14:29 96 mls/hr BID@1000,2200 PARDEEP Administration Protocol Ceftriaxone Sodium 2 gm/ 50 mls @ 100 mls/hr 05/05/24 14:30 05/06/24 09:02 Sodium Chloride IV 05/12/24 14:29 100 mls/hr QDAY PARDEEP Administration Lactulose 20 gm 05/03/24 09:00 05/06/24 09:01 Lactulose Syrup 20 Gm/30 Ml Udc PO 06/02/24 08:59 20 gm BID PARDEEP Administration Protocol Metoprolol Succinate 50 mg 05/05/24 14:45 05/05/24 15:22 Metoprolol Succinate Xl 25 Mg Tabcr PO 06/04/24 14:44 50 mg QPM PARDEEP Administration Ondansetron HCl 4 mg 05/03/24 01:53 05/03/24 15:37 Ondansetron Inj 2 Mg/Ml Inj 2 Ml IV 06/02/24 01:52 4 mg Q6H PRN Administration NAUSEA OR VOMITING Protocol Pharmacy Consult 1 each 05/05/24 14:15 Vancomycin Pharmacy To Dose 1 Each Each IV 06/04/24 14:14 QDAY PRN CONSULT Sennosides 2 tab 05/03/24 09:00 05/06/24 09:01 Senna/Docusate Sod 1 Tab Tablet PO 06/02/24 08:59 2 tab BID PARDEEP Administration Protocol Plan 83-year-old male with past medical history of A-fib on Eliquis, hypertension, osteoarthritis, chronic back pain on opioids, and bradycardia s/p pacemaker was admitted to the hospital on 05/03/2024 due to sepsis likely secondary to pneumonia as well as acute encephalopathy. #Paraplegia #Ground-level fall #Syncope versus OD #Urinary incontinence #Osteomyelitis/Discitis #Suspicion for cauda equina syndrome ?Patient came in with inability to move his lower extremities after being found on the floor by his ex-. ? Patient stated that he took 3 oxycodone's, marijuana, and Xanax prior to his fall and he did not remember anything afterwards. ? Teleneurology initially stated to transfer patient as there was high suspicion for cauda equina given patient's presentation of lower extremity weakness/immobility and urinary incontinence ?MRI cervical spine showed C6-C7 bilateral neural foraminal stenosis ?Lumbar spine MRI showed suspicion for mild osteomyelitis with discitis at L2-L3 ?Thoracic spine MRI did not show any abnormal enhancing epidural tumor. ?Thoracic spine CT showed degenerative disc disease ? Lumbar spine CT showed multiple schmorls' nodes -Blood Cx negative in 48 hrs -No need for transfer and low suspicion for cauda equina as per in hospital neurology Plan: ? Continue Rocephin and Doxy ? Neurology consulted, appreciate recommendations ? ID consulted, appreciate recommendations ? Brain MRI with and without contrast penidng #Sepsis likely secondary to community-acquired pneumonia #Community-acquired pneumonia #Acute encephalopathy #Possible opioid and benzodiazepine overdose #Hx of chronic low back pain #Leukocytosis #Hypotension ?Patient came in with altered mental status and there was suspicion for overdose from opioids and benzodiazepines to which he admitted to taking 3 oxycodone's as well as Xanax and marijuana prior to the episode of loss of conscious and being found in the floor. ? U tox was positive for opioids and benzos. ? Chest x-ray showed pneumonia ?Patient came in with WBCs of 14.2 today 5.8 ? Blood pressure was on the softer side -Blood Cx negative in 48 hrs Plan: ? Continue ceftriaxone and Doxy ? Will continue to monitor #Hx of hypertension ?Patient blood pressure has been well-controlled during hospital stay, but today was slightly elevated likely due to stress from being in the MRI. ? Continue metoprolol XL 50mg qday #Hx of A-fib, rate controlled ?Held Eliquis until Neuro recommendations -resume metoprolol XL 50mg qday Disposition: Patient seen in telemetry pending ID recs, Neuro recs, and Brain MRI Diet: cardiac GI prophylaxis: not indicated DVT prophylaxis: heparin sc Code:full Case disclosed with Attending Dr. Tong and my senior Dr. Lin PGY 2 Ion Alvarez Zaki PGY1 Senior Resident Attestation: The patient is still paraplegic. He still has flat affect. We will continue with ceftriaxone and vancomycin for broad antibacterial coverage. Pending Dr. Simpson recommendations. I discussed with and supervised the internal communications writer physician involved in the care of this patient. I personally saw and examined the patient and discussed the assessment and plan with the entire medicine team, including my attending. I agree with the assessment and plan as documented above. Jaxon Lin MD PGY2 Internal Medicine Attending Provider Attestation/Addendum I reviewed labs, imaging, EKG, home medications and prior available records. Face to face evaluation was performed by me. I have personally examined the patient and discussed assessment and plan with the IM team. I reviewed the resident note and agree with the plan with exceptions as below. Sepsis Community-acquired pneumonia Bilateral lower extremity weakness Myelitis/discitis Uncontrolled diabetes mellitus with hyperglycemia, likely type II Follow-up brain MRI Consulted ID: Changed antibiotics to IV ceftriaxone and doxycycline Consulted neurology: No indication to transfer at this time. Antibiotics as above. Started sliding scale insulin. Ordered A1c.
[2024-05-06 09:51] LABS: Basophils % (Auto) 0 % (0-2.5); Eosinophils % (Auto) 1 % (0-10); Hematocrit 37.7 % (41.0-53.0); Hemoglobin 12.8 g/dL (13.5-16.0); Immature Granulocytes % (Auto) 1 % (0-0); Immature Granulocytes Auto 0.03 Thou/mm3 (0.00-0.00); Lymphocytes # (Auto) 1.5 Thou/mm3 (1.0-4.8); Lymphocytes % (Auto) 26 % (10-50); Mean Corpuscular Hemoglobin 33.5 pg (25.0-35.0); Mean Corpuscular Volume 99 fL (80-100); Monocytes # (Auto) 0.5 Thou/mm3 (0.0-0.8); Monocytes % (Auto) 8 % (0-12); Neutrophils # (Auto) 3.7 Thou/mm3 (1.8-7.7); Neutrophils % (Auto) 65 % (37-80); Nucleated Red Blood Cell % 0 /100 WBC (0); Platelet Count 277 Thou/mm3 (140-440); RDW Standard Deviation 51.8 fL (35.1-43.9); Red Blood Count 3.82 Miln/mm3 (4.50-5.90); White Blood Count 5.8 Thou/mm3 (3.8-10.6)
[2024-05-06 09:53] LABS: Alanine Aminotransferase 26 U/L (10-49); Albumin, Serum 3.8 gm/dL (3.4-4.8); Albumin/Globulin Ratio 1.1 (1.2-2.2); Alkaline Phosphatase 121 U/L (46-116); Anion Gap 6 (7-16); Aspartate Amino Transferase 31 U/L (0-34); BUN/Creatinine Ratio 23 Ratio (12-20); Bilirubin,Total 0.5 mg/dL (0.3-1.2); Blood Urea Nitrogen 14 mg/dL (9-23); Calcium 9.3 mg/dL (8.3-10.6); Calcium (Corrected) 9.5 mg/dL (8.5-10.1); Carbon Dioxide 29.7 mMol/L (20.0-31.0); Chloride 104 mMol/L (98-107); Creatinine (Component) 0.6 mg/dL (0.6-1.3); Estimated Creatinine Clearance 86.6 mL/min (>60); Globulin 3.4 gm/dL (2.3-3.5); Glucose 101 mg/dL (74-106); Osmolality,Calculated 279 (275-295); Potassium 3.4 mMol/L (3.4-5.1); Sodium 140 mMol/L (136-145); Total Protein 7.2 gm/dL (5.7-8.2); eGFR > 60 See Note
[2024-05-06] MEDS: VANCOMYCIN/NS 1 GM IVPB 200 ML IV ×2 (11:00→21:49)
--- NOTE | 2024-05-06 11:18 | PD.IDPROG ---
Subjective Subjective Interval history: asked to see for empiric rx of spinal osteo/discitis by imaging. no transfer noted. no biopsy of affected area Exam Vital Signs Temp Pulse Resp BP Pulse Ox O2 Del Method O2 Flow Rate 97.5 F 62 23 H 141/83 H 99 Nasal Cannula 3 05/06/24 08:00 05/06/24 08:00 05/06/24 08:00 05/06/24 08:00 05/06/24 08:00 05/06/24 08:00 05/06/24 08:00 Narrative Exam see dictation Objective - Internal Medicine Labs 05/06/24 08:59 05/06/24 08:59 Labs: Laboratory Results - last 24 hr 05/06/24 05/06/24 04:39 08:59 WBC 5.8 RBC 3.82 L Hgb 12.8 L Hct 37.7 L MCV 99 MCH 33.5 MCHC 34.0 RDW Std Deviation 51.8 H Plt Count 277 D Neut % (Auto) 65 Lymph % (Auto) 26 [place] % (Auto) 8 Eos % (Auto) 1 Baso % (Auto) 0 Neut # (Auto) 3.7 Lymph # (Auto) 1.5 [place] # (Auto) 0.5 Eos # (Auto) 0.0 Baso # (Auto) 0.0 Immature Gran # (Auto) 0.03 H Absolute Nucleated RBC 0.00 Immature Gran % 1 H Nucleated RBC % 0 Sodium 140 Potassium 3.4 Chloride 104 Carbon Dioxide 29.7 Anion Gap 6 L BUN 14 Creatinine 0.6 Estim Creat Clear Calc 86.6 eGFR > 60 BUN/Creatinine Ratio 23 H Glucose 101 Calculated Osmolality 279 Calcium 9.3 Corrected Calcium 9.5 Phosphorus 3.7 Magnesium 2.0 Total Bilirubin 0.5 AST 31 ALT 26 Alkaline Phosphatase 121 H Total Protein 7.2 Albumin 3.8 Globulin 3.4 Albumin/Globulin Ratio 1.1 L Assessment & Plan A&P Narrative lumbar spine process thought to be infectious bph, etc ideally one has a biopsy of the affected area to guide rx, but it is more popular to just treat, if you get a deep tissue biopsy then we can narrow rx to target the germ but if there is a delay, the prior abx may sterilze the cultures if you treat empirically, then 8 weeks of rocephin 2 gm iv daily and po doxy 100 bid reasonable with weekly cbc, renal panel, esr and line removal at end of rx. please do not re image spine unless pt is not better or worse as the findings will persist for months ary at his age. (83) Time Spent With Patient Time: Total time spent is greater than 50% in coordination of care (as documented) at patient's floor/unit and/or counseling patient:
[2024-05-06] MEDS: POTASSIUM CHLORIDE 20 mEq TABCR 40 MEQ PO (12:12)
--- NOTE | 2024-05-06 12:50 | ESPR_ITS ---
Subjective Subjective Interval history: pt still unable to walk due to apparent paraplegia. unable to feel feet as well. seen only by telemed by dr harding, but I am worried about him. Exam Vital Signs Temp Pulse Resp BP Pulse Ox O2 Del Method O2 Flow Rate 97.0 F 67 22 H 141/88 H 97 Nasal Cannula 2 05/06/24 12:00 05/06/24 12:00 05/06/24 12:00 05/06/24 12:00 05/06/24 12:00 05/06/24 12:00 05/06/24 12:00 Narrative Exam slow, very. unable to move legs at all. seemed to not sense me obviously tickling his feet. Objective - Internal Medicine Labs 05/06/24 08:59 05/06/24 08:59 Labs: Laboratory Results - last 24 hr 05/06/24 05/06/24 04:39 08:59 WBC 5.8 RBC 3.82 L Hgb 12.8 L Hct 37.7 L MCV 99 MCH 33.5 MCHC 34.0 RDW Std Deviation 51.8 H Plt Count 277 D Neut % (Auto) 65 Lymph % (Auto) 26 [place] % (Auto) 8 Eos % (Auto) 1 Baso % (Auto) 0 Neut # (Auto) 3.7 Lymph # (Auto) 1.5 [place] # (Auto) 0.5 Eos # (Auto) 0.0 Baso # (Auto) 0.0 Immature Gran # (Auto) 0.03 H Absolute Nucleated RBC 0.00 Immature Gran % 1 H Nucleated RBC % 0 Sodium 140 Potassium 3.4 Chloride 104 Carbon Dioxide 29.7 Anion Gap 6 L BUN 14 Creatinine 0.6 Estim Creat Clear Calc 86.6 eGFR > 60 BUN/Creatinine Ratio 23 H Glucose 101 Calculated Osmolality 279 Calcium 9.3 Corrected Calcium 9.5 Phosphorus 3.7 Magnesium 2.0 Total Bilirubin 0.5 AST 31 ALT 26 Alkaline Phosphatase 121 H Total Protein 7.2 Albumin 3.8 Globulin 3.4 Albumin/Globulin Ratio 1.1 L Assessment & Plan A&P Narrative lumbar spine process thought to be infectious with apparent paraplegia and loss of distal sensation not consistent with imaging bph, etc ideally one has a biopsy of the affected area to guide rx, but it is more popular to just treat, if you get a deep tissue biopsy then we can narrow rx to target the germ but if there is a delay, the prior abx may sterilze the cultures if you treat empirically, then 8 weeks of rocephin 2 gm iv daily and po doxy 100 bid reasonable with weekly cbc, renal panel, esr and line removal at end of rx. please do not re image spine unless pt is not better or worse as the findings will persist for months ary at his age. (83) he is 83 and more than a little slow, so will also evaluate for reversible causes of dementia. you may want another neuro eval. Time Spent With Patient Time: Total time spent is greater than 50% in coordination of care (as documented) at patient's floor/unit and/or counseling patient:
[2024-05-06 14:16] LABS: Glucose Estimated Average 108 mg/dL (80-131); Hemoglobin A1C 5.4 % Hgb (4.8-6.0)
--- NOTE | 2024-05-06 14:37 | PC.SS ---
Rounding note: patient is pending Dr. Eng recommendations.
--- NOTE | 2024-05-06 14:39 | PC.SS ---
Addendum entered by LITA Garrido 05/06/24 14:57: PASRR completed. LV1. Addendum entered by LITA Garrido 05/06/24 14:53: SNF inquiry sent via [employer] platform. Pending responses. Addendum entered by LITA Garrido 05/06/24 14:45: Received call back from patient's daughter, Pamella she is agreeable with SNF placement for the patient. Preferred SNF is [facility]. Original Note: SS update: attempted to contact patient's daughter Pamella Hernandez [phone], to discuss the recommendation for SNF. Voicemail provided as there was no answer, call back number provided.
--- NOTE | 2024-05-06 15:46 | ESCONSULT_ITS ---
RE: ALEJANDRA YA : 1940 DATE OF CONSULTATION: 05/06/2024 REFERRING PHYSICIAN: Dr. Camp. REASON FOR CONSULTATION: His past history is notable for immobility and lack of sensation in the distal lower extremities for several days now. His A1c is a little high. He has hypertension, BPH, atrial fibrillation, degenerative arthritis, chronic low back pain, on chronic meds and a pacemaker placed about a year ago for reasons for roughly slow heart rate. PAST SURGICAL HISTORY: Includes one of the pacemaker. There are no other medical or surgical problems ALLERGIES: NONE NOTED. IMMUNIZATIONS: Unavailable. FAMILY HISTORY: Noncontributory. SOCIAL HISTORY: He apparently lives independently in [place] with a dog. He seems a bit slow, though, so he may have dementia. PHYSICAL EXAMINATION: On exam, he is a bit slow. He may have a component of dementia. He is on some oxygen, which he does not recall taking at home, but maybe just a low level started by the nursing staff. The patient was seen by neurology, Dr. Stone, but also Dr. Simpson. Dr. Simpson's visit was telemed only. Dr. Stone apparently saw the patient in person, who was concerned and tried to transfer him, but imaging was not consistent with the findings on exam, so patient was kept in hospital. Dr. Simpson reviewed the case briefly on 05/05/2024, yesterday. I will check in again on Monday, but I will not be here in the meantime. He may wish to have another neurology evaluation and possibly additional imaging to see what is going on with the legs. cc: Malick Simpson MD Kirby Camp MD DT: 12:58:58 TT: 15:44:00 Ref: [id number] - TID: [id number]
[2024-05-06] MEDS: METOPROLOL SUCCINATE XL 25 MG TABCR 50 MG PO (21:14)
[2024-05-06] MEDS: INSULIN LISPRO (AdmeLOG) 1 UNIT/0.01 ML UNIT SC (21:14)
[2024-05-06 21:46] LABS: Vancomycin,Trough 11.7 mcg/mL (5.0-10.0)
--- NOTE | 2024-05-06 23:20 | PD.NEUROPROG ---
Documentation for date of: 05/06/24 Subjective Subjective Interval history: Patient seen in telemetry today, continue to have paraplegia with a lack of sensation and bladder control. Has indwelling catheter in place. Patient complains of severe back pain as well in the last 3 days. Exam - Neurology Vital Signs Temp Pulse Resp BP Pulse Ox O2 Del Method O2 Flow Rate 97.1 F 83 23 H 145/81 H 97 Nasal Cannula 2 05/06/24 19:42 05/06/24 21:14 05/06/24 19:42 05/06/24 21:14 05/06/24 19:42 05/06/24 19:42 05/06/24 19:42 Narrative Exam GENERAL APPEARANCE: Well hydrated, well-nourished in no acute distress. HEENT: Normocephalic, atraumatic, extraocular movements intact. Pupils: Equal reacting to light and accommodation NECK: Supple, no JVD or bruits. CARDIOVASULAR: Heart: S1, S2 heard, regular without S3-S4 or murmur no rubs or gallops. LUNGS/CHEST: Clear to auscultation bilaterally. No rails, rhonchi, or wheezing. Normal inspection. ABDOMEN: Soft, nontender, with normal bowel sounds. No pulsatile masses. No rebound, rigidity, or guarding. Normal inspection and palpation. EXTREMITIES: Normal inspection and palpation. No edema, clubbing or cyanosis. SKIN: Warm and dry without rashes. Normal inspection. MUSCULOSKELETAL: No cervical, thoracic, lumbar or midline bony tenderness. Normal inspection. NEURO: Alert, awake and oriented x3. Cranial nerves: II through XII grossly intact. Speech and language: Normal with no dysarthria or dysphasia. Motor system: Tone and bulk: Normal: Strength: 5 out of 5 in both upper extremities extremities; he has dense paraplegia in both lower extremities. Deep tendon reflexes: Absent knee jerk and ankle jerk bilaterally. Plantar reflex: Downgoing bilaterally. Sensory system: Impaired to all modalities of sensation below the waist. coordination: Intact to [id number] test bilaterally. No ataxia, no dysmetria, or dysdiadochokinesia noted. No intention tremors noted. Gait: Could not be tested. No signs of meningeal irritation noted. PSYCHIATRIC: Normal mood and affect. Objective Labs 05/07/24 04:51 01/06/25 08:59 Labs: Laboratory Results - last 24 hr 05/06/24 05/06/24 05/06/24 04:39 08:59 21:03 WBC 5.8 RBC 3.82 L Hgb 12.8 L Hct 37.7 L MCV 99 MCH 33.5 MCHC 34.0 RDW Std Deviation 51.8 H Plt Count 277 D Neut % (Auto) 65 Lymph % (Auto) 26 [place] % (Auto) 8 Eos % (Auto) 1 Baso % (Auto) 0 Neut # (Auto) 3.7 Lymph # (Auto) 1.5 [place] # (Auto) 0.5 Eos # (Auto) 0.0 Baso # (Auto) 0.0 Immature Gran # (Auto) 0.03 H Absolute Nucleated RBC 0.00 Immature Gran % 1 H Nucleated RBC % 0 Sodium 140 Potassium 3.4 Chloride 104 Carbon Dioxide 29.7 Anion Gap 6 L BUN 14 Creatinine 0.6 Estim Creat Clear Calc 86.6 eGFR > 60 BUN/Creatinine Ratio 23 [address] Glucose [address] Glu mg/dL 108 Hemoglobin A1c 5.4 Calculated Osmolality 279 Calcium 9.3 Corrected Calcium 9.5 Phosphorus 3.7 Magnesium 2.0 Total Bilirubin 0.5 AST 31 ALT 26 Alkaline Phosphatase 121 H Total Protein 7.2 Albumin 3.8 Globulin 3.4 Albumin/Globulin Ratio 1.1 L Vancomycin Trough 11.7 H Assessment & Plan Assessment and plan (1) Generalized weakness: Status: Acute Assessment and plan: MRI brain showed foci of restricted diffusion in the basal ganglia with enhancement in the same regions on the postcontrast images, differential would include anoxic ischemic change, underlying neoplastic lesions less likely but not excluded. As the imaging findings remain unchanged in the lumbar spine in the last 2 years, with history of frequent falls and not sure about his baseline ambulatory status, I would recommend getting lumbar puncture by interventional radiology to rule out transverse myelitis. If significant inflammation is found with elevated white count and protein in the CSF, would benefit from IVIG therapy for 5 days followed by intensive inpatient physical therapy.
[2024-05-07] VITALS (11 sets, daily range): BP systolic 123–159; BP diastolic 82–97; PULSE 71–90; RESP 16–98; TEMP 36.2–36.8; O2SAT 95–98; BMI 20.6; BMI 12.0
[2024-05-07] MEDS: HEPARIN SOD INJ 5000 UNIT/ML VIAL SC ×2 (05:12→20:29)
[2024-05-07 05:24] LABS: Quantiferon-TB* See Sep Rpt
[2024-05-07 05:28] LABS: Basophils % (Auto) 0 % (0-2.5); Eosinophils # (Auto) 0.1 Thou/mm3 (0.0-0.5); Eosinophils % (Auto) 1 % (0-10); Hematocrit 36.2 % (41.0-53.0); Hemoglobin 12.2 g/dL (13.5-16.0); Immature Granulocytes % (Auto) 1 % (0-0); Immature Granulocytes Auto 0.04 Thou/mm3 (0.00-0.00); Lymphocytes # (Auto) 1.9 Thou/mm3 (1.0-4.8); Lymphocytes % (Auto) 31 % (10-50); Mean Corpuscular HGB Conc 33.7 g/dl (31.0-37.0); Mean Corpuscular Hemoglobin 33.2 pg (25.0-35.0); Mean Corpuscular Volume 98 fL (80-100); Monocytes # (Auto) 0.5 Thou/mm3 (0.0-0.8); Monocytes % (Auto) 8 % (0-12); Neutrophils # (Auto) 3.6 Thou/mm3 (1.8-7.7); Neutrophils % (Auto) 59 % (37-80); Nucleated Red Blood Cell % 0 /100 WBC (0); Platelet Count 310 Thou/mm3 (140-440); RDW Standard Deviation 51.8 fL (35.1-43.9); Red Blood Count 3.68 Miln/mm3 (4.50-5.90); White Blood Count 6.2 Thou/mm3 (3.8-10.6)
[2024-05-07 05:43] LABS: Ammonia 21 uMol/L (11-32)
--- NOTE | 2024-05-07 05:44 | PC.RT ---
RT in room to collect sputum sample, pt has non productive dry cough, diminished clear breaht sounds. Pt want to try to produce sample on his own before he takes induction medication. Pt educated on sample collection and sterile cup left bedside.
[2024-05-07 06:16] LABS: Alanine Aminotransferase 23 U/L (10-49); Albumin, Serum 3.8 gm/dL (3.4-4.8); Albumin/Globulin Ratio 1.2 (1.2-2.2); Alkaline Phosphatase 115 U/L (46-116); Anion Gap 8 (7-16); Aspartate Amino Transferase 24 U/L (0-34); BUN/Creatinine Ratio 27 Ratio (12-20); Bilirubin,Total 0.5 mg/dL (0.3-1.2); Blood Urea Nitrogen 16 mg/dL (9-23); Calcium 9.3 mg/dL (8.3-10.6); Calcium (Corrected) 9.5 mg/dL (8.5-10.1); Carbon Dioxide 26.3 mMol/L (20.0-31.0); Chloride 105 mMol/L (98-107); Creatinine (Component) 0.6 mg/dL (0.6-1.3); Estimated Creatinine Clearance 86.6 mL/min (>60); Globulin 3.2 gm/dL (2.3-3.5); Glucose 97 mg/dL (74-106); Magnesium 2.1 mg/dL (1.6-2.6); Osmolality,Calculated 278 (275-295); Potassium 3.6 mMol/L (3.4-5.1); Sodium 139 mMol/L (136-145); eGFR > 60 See Note
[2024-05-07 06:33] LABS: Thyroid Stimulating Hormone 2.52 uIU/mL (0.55-4.78)
--- NOTE | 2024-05-07 07:47 | XR_ITS ---
Examination: IR fluoroscopically guided diagnostic lumbar structure Fluoroscopy AP lumbar spine single view Exam date and time: May 07, 2024 1434 hours INDICATIONS: Altered mental status confusion this week, patient found down unconscious May 06, 2024 TECHNIQUE AND FINDINGS: Informed consent provided. Timeout performed. Skin prepped over the lower back and sterile drape applied hand hygiene 1% lidocaine administered for local anesthesia Successful lumbar puncture L5-S1 level under fluoroscopic guidance Normal opening pressures 6 10 cc clear fluid withdrawn Estimated blood loss 0 cc Patient instable condition at completion procedure IMPRESSION: Successful IR fluoroscopically guided diagnostic lumbar puncture Fluoroscopy 0.3 minutes radiation dose 12.40 milligray 1 spot lumbar spine film
[2024-05-07] MEDS: POTASSIUM CHLORIDE 20 mEq TABCR 40 MEQ PO (08:28)
[2024-05-07] MEDS: LACTULOSE SYRUP 20 GM/30 ML UDC PO (08:29)
[2024-05-07] MEDS: cefTRIAXone 2 GM in SODIUM CHLORIDE 0.9% (P) 50 ML IV (08:29)
[2024-05-07] MEDS: SERTRALINE HCL 25 MG TABLET 50 MG PO ×2 (08:29→20:29)
[2024-05-07] MEDS: SENNA/DOCUSATE SOD 1 TAB TABLET 2 TAB PO ×2 (08:29→20:28)
--- NOTE | 2024-05-07 09:58 | XR_ITS ---
Examination: Ultrasound-guided needle placement right brachial vein. Dual-lumen central line placement (PICC line). Fluoroscopy AP chest, portable, single view Exam date and time:May 07, 2024 1509 hours INDICATIONS: Need for long-term intravenous medication, antibiotic therapy for discitis osteomyelitis L2-L3 level A timeout was completed verifying correct patient, procedure, site, positioning Informed consent provided Technique: The patient's site was prepped and draped in sterile fashion. Maximum Sterile Barrier Technique used including cap, mask, sterile gown, sterile gloves, and sterile full body drape. If ultrasound technique used: sterile gel and sterile probe covers. Hand Hygiene performed using proper scrub, soap and water, or alcohol-based hand rub. Site right portable apparatus utilized to confirm patency of the right brachial vein Utilizing ultrasonographic guidance successful 21-gauge needle puncture in the right brachial vein Ultrasound images recorded and stored. 5 cc 1% lidocaine administered for local anesthetic. Successful micropuncture with a 21-gauge needle is performed. 0.18 wire guide is then introduced into the SVC under fluoroscopic guidance. Dual-lumen catheter dilator is then introduced, followed by the catheter in the SVC and proper position under fluoroscopic guidance. Successful aspiration of blood and flushing with heparinized saline is then performed in the 2 venous limbs. The catheter sutured in place. Findings: Under fluoroscopy, the tip of the catheter is in good position in the vena cava. Portable chest x-ray, post line placement is ordered. Estimated blood loss 3 cc The patient tolerated the procedure well and was in stable and satisfactory condition at completion of the procedure Impression: Successful ultrasound-guided needle placement right brachial vein Successful placement of dual lumen central line, percutaneous Fluoroscopy 0.1 minute radiation dose 0.53 milligray 1 spot fluoroscopic chest film. AP chest completion procedure demonstrates satisfactory position central line. May use central line.
[2024-05-07] MEDS: DOXYCYCLINE 100 MG TABLET PO ×2 (10:59→20:28)
--- NOTE | 2024-05-07 11:11 | PD.RESPRO ---
Documentation for date of: 05/07/24 Subjective Subjective Interval history: Patient was seen at bedside this morning. No overnight events. Neurology recommended to get lumbar puncture to rule out transverse myelitis. Given osteomyelitis patient will also need IV antibiotics for an extended period of time therefore will order PICC line insertion as well. Patient's major consideration so that patient is on olanzapine, but when checked has not been recently prescribed therefore we will as to recheck medication reconciliation before starting olanzapine. No other complaints at this time. Exam Vital Signs Temp Pulse Resp BP Pulse Ox O2 Del Method O2 Flow Rate 98.2 F 83 20 159/91 H 97 Room Air 2 05/07/24 08:00 05/07/24 08:00 05/07/24 08:00 05/07/24 08:00 05/07/24 08:00 05/07/24 08:00 05/07/24 04:00 Narrative Exam General: A/O x3, ill-appearing Eyes: PERRL, EOMI. Anicteric, vision grossly intact. Ears: No ear pain, no ear discharge, Hearing impaired. Nose: No nasal discharge. Mouth/Throat: Dry mucous membranes, no redness, no lesions. Neck: Neck supple, non-tender, no cervical lymphadenopathy. Lungs: Clear TIBURCIO to auscultation and percussion, No accessory muscle use. Cardio: Normal S1/S2, irregular rhythm, no murmurs, no JVD Abdomen: Soft,but distended, non-tender, no palpable masses, peristalsis present, no guarding or rebound. Extremities: Symmetrical, no significant deformities, trace peripheral edema , non-tender, peripheral pulses presents. Skin: No rashes, no lesions, warm to touch. Neuro: Still unable to move Tiburcio LE, sensation decreased in TIBURCIO LE, UE strength/sensation intact, more withdrawn likely due to impaired hearing. Objective Labs 05/07/24 11:09 05/07/24 04:51 Labs: Laboratory Results - last 24 hr 05/06/24 05/06/24 05/07/24 08:59 21:03 04:51 WBC 6.2 RBC 3.68 L Hgb 12.2 L Hct 36.2 L MCV 98 MCH 33.2 MCHC 33.7 RDW Std Deviation 51.8 H Plt Count 310 D Neut % (Auto) 59 Lymph % (Auto) 31 [place] % (Auto) 8 Eos % (Auto) 1 Baso % (Auto) 0 Neut # (Auto) 3.6 Lymph # (Auto) 1.9 [place] # (Auto) 0.5 Eos # (Auto) 0.1 Baso # (Auto) 0.0 Immature Gran # (Auto) 0.04 H Absolute Nucleated RBC 0.00 Immature Gran % 1 H Nucleated RBC % 0 Sodium 139 Potassium 3.6 Chloride 105 Carbon Dioxide 26.3 Anion Gap 8 BUN 16 Creatinine 0.6 Estim Creat Clear Calc 86.6 eGFR > 60 BUN/Creatinine Ratio 27 [address] Glucose [address] Glu mg/dL 108 Hemoglobin A1c 5.4 Calculated Osmolality 278 Calcium 9.3 Corrected Calcium 9.5 Magnesium 2.1 Total Bilirubin 0.5 AST 24 ALT 23 Alkaline Phosphatase 115 Ammonia 21 Total Protein 7.0 Albumin 3.8 Globulin 3.2 Albumin/Globulin Ratio 1.2 TSH 2.52 Vancomycin Trough 11.7 H Quality Measures Quality Measures VTE prophylaxis Advance care planning discussed with:: patient Assessment & Plan Assessment Current Active Medications: Generic Name Dose Route Start Last Admin Trade Name Freq PRN Reason Stop Dose Admin Acetaminophen 650 mg 05/03/24 01:53 Acetaminophen 325 Mg Tablet PO 06/02/24 01:52 Q6H PRN Fever >100.4 or Pain Albuterol/Ipratropium 3 ml 05/03/24 01:59 Albuterol/Ipratropium (Duoneb) Rt Eve 3 Ml Nebu INH 06/02/24 06:59 Q6HRRT PRN Shortness of breath or wheezing Dextrose 25 ml 05/06/24 10:09 Dextrose 50%-Water Inj 50 Ml Syringe IV 06/05/24 10:08 Q15MIN PRN BG 50-70 responsive npo pt Dextrose 50 ml 05/06/24 10:09 Dextrose 50%-Water Inj 50 Ml Syringe IV 06/05/24 10:08 Q15MIN PRN BG <50 OR BG <70 & pt unresponsive Doxycycline Hyclate 100 mg 05/07/24 10:15 05/07/24 10:59 Doxycycline 100 Mg Tablet PO 05/14/24 10:14 100 mg BID PARDEEP Administration Glucagon 1 mg 05/06/24 10:09 Glucagon Inj 1 Mg Vial IM Q15MIN PRN BG <70, and no IV access Heparin Sodium (Porcine) 5,000 unit 05/04/24 14:00 05/07/24 05:12 Heparin Sod Inj 5000 Unit/Ml Vial SC 05/18/24 13:59 5,000 unit Q8HR PARDEEP Administration Ceftriaxone Sodium 2 gm/ 50 mls @ 100 mls/hr 05/05/24 14:30 05/07/24 08:29 Sodium Chloride IV 05/12/24 14:29 100 mls/hr QDAY PARDEEP Administration Insulin Human Lispro 0 unit 05/06/24 11:30 05/06/24 21:14 Insulin Lispro (Admelog) 1 Unit/0.01 Ml Unit SC 06/05/24 11:29 1 unit ACHS PARDEEP Administration Protocol Lactulose 20 gm 05/03/24 09:00 05/07/24 08:29 Lactulose Syrup 20 Gm/30 Ml Udc PO 06/02/24 08:59 20 gm BID PARDEEP Administration Protocol Metoprolol Succinate 50 mg 05/05/24 14:45 05/06/24 21:14 Metoprolol Succinate Xl 25 Mg Tabcr PO 06/04/24 14:44 50 mg QPM PARDEEP Administration Ondansetron HCl 4 mg 05/03/24 01:53 05/03/24 15:37 Ondansetron Inj 2 Mg/Ml Inj 2 Ml IV 06/02/24 01:52 4 mg Q6H PRN Administration NAUSEA OR VOMITING Protocol Sennosides 2 tab 05/03/24 09:00 05/07/24 08:29 Senna/Docusate Sod 1 Tab Tablet PO 06/02/24 08:59 2 tab BID PARDEEP Administration Protocol Sertraline HCl 50 mg 05/07/24 09:00 05/07/24 08:29 Sertraline Hcl 25 Mg Tablet PO 06/06/24 08:59 50 mg BID PARDEEP Administration Plan 83-year-old male with past medical history of A-fib on Eliquis, hypertension, osteoarthritis, chronic back pain on opioids, and bradycardia s/p pacemaker was admitted to the hospital on 05/03/2024 due to sepsis likely secondary to pneumonia as well as acute encephalopathy. #Paraplegia #Ground-level fall #Syncope versus OD #Urinary incontinence #Osteomyelitis/Discitis #Suspicion for cauda equina syndrome ?Patient came in with inability to move his lower extremities after being found on the floor by his ex-. ? Patient stated that he took 3 oxycodone's, marijuana, and Xanax prior to his fall and he did not remember anything afterwards. ? Teleneurology initially stated to transfer patient as there was high suspicion for cauda equina given patient's presentation of lower extremity weakness/immobility and urinary incontinence ?MRI cervical spine showed C6-C7 bilateral neural foraminal stenosis ?Lumbar spine MRI showed suspicion for mild osteomyelitis with discitis at L2-L3 ?Thoracic spine MRI did not show any abnormal enhancing epidural tumor. ?Thoracic spine CT showed degenerative disc disease ? Lumbar spine CT showed multiple schmorls' nodes -Blood Cx negative in 48 hrs -No need for transfer and low suspicion for cauda equina as per in hospital neurology Plan: ? Continue Rocephin and Doxy -Pending LP and PICC line insertion ? Neurology consulted, appreciate recommendations ? ID consulted, appreciate recommendations ? Brain MRI with and without contrast penidng #Sepsis likely secondary to community-acquired pneumonia #Community-acquired pneumonia #Acute encephalopathy #Possible opioid and benzodiazepine overdose #Hx of chronic low back pain #Leukocytosis #Hypotension ?Patient came in with altered mental status and there was suspicion for overdose from opioids and benzodiazepines to which he admitted to taking 3 oxycodone's as well as Xanax and marijuana prior to the episode of loss of conscious and being found in the floor. ? U tox was positive for opioids and benzos. ? Chest x-ray showed pneumonia ?Patient came in with WBCs of 14.2 today 5.8 ? Blood pressure was on the softer side -Blood Cx negative in 48 hrs Plan: ? Continue ceftriaxone and Doxy -Picc line insertion ordered ? Will continue to monitor #Hx of hypertension ?Patient blood pressure has been well-controlled during hospital stay, but today was slightly elevated likely due to stress from being in the MRI. ? Continue metoprolol XL 50mg qday #Hx of A-fib, rate controlled ?Held Eliquis until Neuro recommendations -resume metoprolol XL 50mg qday #Hx of psych disorders -Started Zoloft -Pending confirmation on Olanzapine to restart. Disposition: Patient seen in telemetry pending PICC line and LP. Diet: cardiac GI prophylaxis: not indicated DVT prophylaxis: heparin sc Code:full Case disclosed with Attending Dr. Tong and my senior Dr. Lin PGY 2 Ion Haines PGY1 Senior Resident Attestation: Lumbar puncture was done, and fluid analysis was significant for protein greater than 250. We will update the results to Dr. Simpson and start the patient on IVIG. We will continue with current medical management. I discussed with and supervised the corporate strategy intern physician involved in the care of this patient. I personally saw and examined the patient and discussed the assessment and plan with the entire medicine team, including my attending. I agree with the assessment and plan as documented above. Jaxon Lin MD PGY2 Internal Medicine Attending Provider Attestation/Addendum I reviewed labs, imaging, EKG, home medications and prior available records. Face to face evaluation was performed by me. I have personally examined the patient and discussed assessment and plan with the IM team. I reviewed the resident note and agree with the plan with exceptions as below. Sepsis Community-acquired pneumonia Bilateral lower extremity weakness Myelitis/discitis Possible transverse myelitis Uncontrolled diabetes mellitus with hyperglycemia, likely type II Follow-up brain MRI: Showed Foci of restricted diffusion in the basal ganglia with enhancement in the same regions on the postcontrast images, differential would include anoxic ischemic change, underlying neoplastic lesions less likely but not excluded. Discussed with neurology: Recommended LP. Suspect transverse myelitis. Ordered LP by IR. Consulted ID: Changed antibiotics to IV ceftriaxone and doxycycline for 8 weeks. PICC line was ordered. Resumed psych medications. Possible underlying schizophrenia With negative symptoms. Consulted neurology: No indication to transfer at this time. Antibiotics as above. May need IVIG based on the LP results. Started sliding scale insulin. Ordered A1c.
[2024-05-07 11:57] LABS: Platelet Count 300 Thou/mm3 (140-440)
[2024-05-07 12:03] LABS: INR 1.2 (0.9-1.3); Prothrombin Time 12.7 Seconds (9.0-12.2)
[2024-05-07 14:00] LABS: Cocci Serology, IgM Positive (Negative)
[2024-05-07 14:01] LABS: Cocid Sro, CF/ID (UCD) NO CHG* See Sep Rpt
[2024-05-07] MEDS: LIDOCAINE INJ PF 1% 30 ML VIAL 5 ML INFL (15:33)
[2024-05-07] MEDS: HEPARIN SOD LOCK SYR 100 UNIT/ML 500 UNIT STFIELD (15:33)
--- NOTE | 2024-05-07 15:39 | PC.SS ---
Addendum entered by Betty Finley 05/07/24 16:22: [facility] has accepted patient and can provide the i.v. antibiotics Addendum entered by Betty Finley 05/07/24 16:22: PASRR completed Original Note: Follow up note: SS spoke to [facility] and they state they cannot accommodate the 8 weeks of i.v. antibiotics. SS spoke to daughter who states her other preference is [facility] or [facility] or [facility]. SS will speak with facilities to see who can accommodate. Patient pending picc line
[2024-05-07 15:50] LABS: CSF White Blood Cell 15 /cmm
[2024-05-07 15:52] LABS: CSF Cell Count Tube # Tube # 4; CSF Color Colorless (Colorless); CSF Mononuclear 73 %
[2024-05-07 15:56] LABS: CSF Polynuclear WBC 27 %; CSF Red Blood Cell 0 /cmm; CSF, Appearance Clear (Clear)
[2024-05-07 16:17] LABS: Glucose,CSF 45 mg/dL (40-70); Protein Total,CSF > 250 mg/dL (8-32)
[2024-05-07 16:32] LABS: CSF Gram Stain Alert Gram Stain Completed
[2024-05-07 17:00] LABS: Syphilis Nonreactive (Nonreactive)
[2024-05-07 17:29] LABS: Folate 17.12 ng/mL (>5.38); Vitamin B12 471 pg/mL (211-911)
[2024-05-07] MEDS: ACETAMINOPHEN 325 MG TABLET 650 MG PO (19:44)
[2024-05-07] MEDS: DiphenhydrAMINE INJ 50 MG/ML VIAL 25 MG IV (19:45)
[2024-05-07] MEDS: PRE MIXED IV (20:15)
[2024-05-07] MEDS: IMMUNE GLOB GA CA IV (20:15)
[2024-05-07] MEDS: INSULIN LISPRO (AdmeLOG) 1 UNIT/0.01 ML UNIT SC (20:27)
[2024-05-07] MEDS: METOPROLOL SUCCINATE XL 25 MG TABCR 50 MG PO (20:29)
--- NOTE | 2024-05-07 22:51 | PD.VPROG1 ---
Telemedicine visit statement This visit was conducted with the use of phone was obtained on 05/07/24. Documentation for date of: 05/07/24 Subjective Subjective Interval history: Patient is in telemetry, continue to have the weakness in both LE and numbness with bladder involvement. Virtual exam Vital Signs Temp Pulse Resp BP Pulse Ox O2 Del Method O2 Flow Rate 97.4 F 82 21 H 123/82 97 Nasal Cannula 2 05/07/24 19:54 05/07/24 20:29 05/07/24 19:54 05/07/24 20:29 05/07/24 19:54 05/07/24 19:54 05/07/24 19:54 Objective Labs 05/07/24 11:09 05/07/24 04:51 Labs: Laboratory Results - last 24 hr 05/07/24 05/07/24 05/07/24 04:51 11:09 15:15 WBC 6.2 RBC 3.68 L Hgb 12.2 L Hct 36.2 L MCV 98 MCH 33.2 MCHC 33.7 RDW Std Deviation 51.8 H Plt Count 310 D 300 Neut % (Auto) 59 Lymph % (Auto) 31 [place] % (Auto) 8 Eos % (Auto) 1 Baso % (Auto) 0 Neut # (Auto) 3.6 Lymph # (Auto) 1.9 [place] # (Auto) 0.5 Eos # (Auto) 0.1 Baso # (Auto) 0.0 Immature Gran # (Auto) 0.04 H Absolute Nucleated RBC 0.00 Immature Gran % 1 H Nucleated RBC % 0 PT 12.7 H INR 1.2 Sodium 139 Potassium 3.6 Chloride 105 Carbon Dioxide 26.3 Anion Gap 8 BUN 16 Creatinine 0.6 Estim Creat Clear Calc 86.6 eGFR > 60 BUN/Creatinine Ratio 27 H Glucose 97 Calculated Osmolality 278 Calcium 9.3 Corrected Calcium 9.5 Magnesium 2.1 Total Bilirubin 0.5 AST 24 ALT 23 Alkaline Phosphatase 115 Ammonia 21 Total Protein 7.0 Albumin 3.8 Globulin 3.2 Albumin/Globulin Ratio 1.2 Vitamin B12 471 Folate 17.12 TSH 2.52 CSF Appearance Clear CSF Color Colorless CSF WBC 15 CSF RBC 0 CSF Cell Count Tube # Tube # 4 CSF Mononuclear WBCs 73 CSF Polynuclear WBCs 27 CSF Glucose 45 CSF Total Protein > 250 H Syphilis Serology Nonreactive Coccidioides IgM Ab Positive A Assessment & Plan Problem List (1) Generalized weakness: Status: Acute Assessment and plan: noted that primary team tried to transfer upon recommendation ax per Neurologist but NSG declined as the acute treatment is not needed. MRI LS spine showed mild degenerative changes at L2-3 and L3-4 with mild discitis/osteomyelitis like pattern. Cervical spine showed degenerative changes with bilateral neural foraminal stenosis. Nothing suggestive of cauda equina syndrome noted. 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 Will try physical therapy when he makes progress while he is on IVIG treatment. Continue with hydration and anticoagulation for DVT prevention
[2024-05-08] VITALS (10 sets, daily range): BP systolic 130–152; BP diastolic 70–90; PULSE 69–84; RESP 19–95; TEMP 36.1–36.3; O2SAT 95–98; BMI 20.6; BMI 12.0
[2024-05-08] MEDS: HEPARIN SOD INJ 5000 UNIT/ML VIAL SC (05:13)
[2024-05-08 06:15] LABS: Basophils % (Auto) 0 % (0-2.5); Eosinophils # (Auto) 0.1 Thou/mm3 (0.0-0.5); Eosinophils % (Auto) 2 % (0-10); Hematocrit 35.8 % (41.0-53.0); Hemoglobin 12.1 g/dL (13.5-16.0); Immature Granulocytes % (Auto) 0 % (0-0); Immature Granulocytes Auto 0.02 Thou/mm3 (0.00-0.00); Lymphocytes # (Auto) 1.3 Thou/mm3 (1.0-4.8); Lymphocytes % (Auto) 24 % (10-50); Mean Corpuscular HGB Conc 33.8 g/dl (31.0-37.0); Mean Corpuscular Hemoglobin 33.4 pg (25.0-35.0); Mean Corpuscular Volume 99 fL (80-100); Monocytes # (Auto) 0.4 Thou/mm3 (0.0-0.8); Monocytes % (Auto) 7 % (0-12); Neutrophils # (Auto) 3.6 Thou/mm3 (1.8-7.7); Neutrophils % (Auto) 67 % (37-80); Nucleated Red Blood Cell % 0 /100 WBC (0); Platelet Count 285 Thou/mm3 (140-440); RDW Standard Deviation 51.8 fL (35.1-43.9); Red Blood Count 3.62 Miln/mm3 (4.50-5.90); White Blood Count 5.3 Thou/mm3 (3.8-10.6)
[2024-05-08 07:08] LABS: Alanine Aminotransferase 20 U/L (10-49); Albumin, Serum 3.4 gm/dL (3.4-4.8); Albumin/Globulin Ratio 0.9 (1.2-2.2); Alkaline Phosphatase 110 U/L (46-116); Anion Gap 7 (7-16); Aspartate Amino Transferase 25 U/L (0-34); BUN/Creatinine Ratio 32 Ratio (12-20); Bilirubin,Total 0.6 mg/dL (0.3-1.2); Blood Urea Nitrogen 19 mg/dL (9-23); Calcium (Corrected) 9.5 mg/dL (8.5-10.1); Carbon Dioxide 25.2 mMol/L (20.0-31.0); Chloride 106 mMol/L (98-107); Creatinine (Component) 0.6 mg/dL (0.6-1.3); Estimated Creatinine Clearance 86.6 mL/min (>60); Globulin 3.7 gm/dL (2.3-3.5); Glucose 101 mg/dL (74-106); Magnesium 1.9 mg/dL (1.6-2.6); Osmolality,Calculated 277 (275-295); Potassium 3.6 mMol/L (3.4-5.1); Sodium 138 mMol/L (136-145); Total Protein 7.1 gm/dL (5.7-8.2); eGFR > 60 See Note
[2024-05-08] MEDS: cefTRIAXone 2 GM in SODIUM CHLORIDE 0.9% (P) 50 ML IV (09:22)
[2024-05-08] MEDS: FLUCONAZOLE 100 MG TABLET 400 MG PO (09:23)
[2024-05-08] MEDS: SERTRALINE HCL 25 MG TABLET 50 MG PO ×2 (09:23→20:40)
[2024-05-08] MEDS: OLANZapine 5 MG TABLET PO (09:23)
[2024-05-08] MEDS: DOXYCYCLINE 100 MG TABLET PO ×2 (09:24→20:40)
[2024-05-08] MEDS: LACTULOSE SYRUP 20 GM/30 ML UDC PO (09:24)
[2024-05-08] MEDS: SENNA/DOCUSATE SOD 1 TAB TABLET 2 TAB PO ×2 (09:25→20:41)
--- NOTE | 2024-05-08 14:17 | ESPR_ITS ---
<Statement entered by Eden Galan MD - 05/08/24 15:59> Patient was examined bedside this morning, still does not have any reflexes. His ex- was present at bedside who gave us more information that patient was surrounded by rats and she insisted that she wants to do hantavirus test. Will continue IVIG for additional 4 days the patient will need physical therapy. Started the patient on fluconazole. Will continue the same treatment. He has a PICC line, continue 2 gm rocephin once daily and doxycycline 100 bid till jun2024 . I discussed with and supervised my co-resident involved in the care of this patient. I agree with the assessment and plan as documented above. Eden Galan,PGY-3 Disclaimer: Despite multiple revisions, due to the dictation software being used, the document below may not be free of grammatical errors including phonetic/typographic errors. However, this does not deter from our commitment to providing health care in the patient's best interest in mind. Documentation for date of: 05/08/24 Subjective Subjective Interval history: Patient seen at bedside this morning. No overnight events. Lumbar puncture was done yesterday and was found to have increased levels of protein to 50, therefore neurology recommended to start patient on IVIG for possible atypical GBS versus transverse myelitis. Patient had his PICC line inserted yesterday. As per infectious disease they recommended to continue current treatment with Rocephin 2 g IV daily and p.o. doxycycline 100 twice daily. Patient was also positive to cocci therefore we will start patient on fluconazole. Patient's ex- was at bedside today and had multiple questions and concerns which were answered, but she was adamant of getting patient tested for Hantavirus as she was reading that it could involve the lungs, kidneys, and other issues which to her understand the patient is having and he has been exposed to mice droplets as his RV and car were filled with mice. Patient still appears to be very withdrawn and spaces out when asked questions therefore we have restarted trazodone and mirtazapine for him as it could be due to psychiatric disorders. Will continue current management. No other complaints at this time. Exam Vital Signs Temp Pulse Resp BP Pulse Ox O2 Del Method O2 Flow Rate 97.1 F 75 19 136/75 H 97 Nasal Cannula 2 05/08/24 12:00 05/08/24 12:00 05/08/24 12:00 05/08/24 12:00 05/08/24 12:00 05/08/24 12:05/08/24 12:00 Narrative Exam General: A/O x3, ill-appearing Eyes: PERRL, EOMI. Anicteric, vision grossly intact. Ears: No ear pain, no ear discharge, Hearing impaired. Nose: No nasal discharge. Mouth/Throat: Dry mucous membranes, no redness, no lesions. Neck: Neck supple, non-tender, no cervical lymphadenopathy. Lungs: Clear TIBURCIO to auscultation and percussion, No accessory muscle use. Cardio: Normal S1/S2, irregular rhythm, no murmurs, no JVD Abdomen: Soft,but distended, non-tender, no palpable masses, peristalsis present, no guarding or rebound. Extremities: Symmetrical, no significant deformities, trace peripheral edema , non-tender, peripheral pulses presents. Skin: No rashes, no lesions, warm to touch. Neuro: Still unable to move Tiburcio LE, sensation decreased in TIBURCIO LE, UE strength/sensation intact, still very withdrawn. Objective Labs 05/09/24 05:35 05/09/24 05:35 Labs: Laboratory Results - last 24 hr 05/07/24 05/07/24 05/08/24 04:51 15:15 05:05 WBC 5.3 RBC 3.62 L Hgb 12.1 L Hct 35.8 L MCV 99 MCH 33.4 MCHC 33.8 RDW Std Deviation 51.8 H Plt Count 285 Neut % (Auto) 67 Lymph % (Auto) 24 [place] % (Auto) 7 Eos % (Auto) 2 Baso % (Auto) 0 Neut # (Auto) 3.6 Lymph # (Auto) 1.3 [place] # (Auto) 0.4 Eos # (Auto) 0.1 Baso # (Auto) 0.0 Immature Gran # (Auto) 0.02 H Absolute Nucleated RBC 0.00 Immature Gran % 0 Nucleated RBC % 0 Sodium 138 Potassium 3.6 Chloride 106 Carbon Dioxide 25.2 Anion Gap 7 BUN 19 Creatinine 0.6 Estim Creat Clear Calc 86.6 eGFR > 60 BUN/Creatinine Ratio 32 H Glucose 101 Calculated Osmolality 277 Calcium 9.0 Corrected Calcium 9.5 Magnesium 1.9 Total Bilirubin 0.6 AST 25 ALT 20 Alkaline Phosphatase 110 Total Protein 7.1 Albumin 3.4 Globulin 3.7 H Albumin/Globulin Ratio 0.9 L Vitamin B12 471 Folate 17.12 CSF Appearance Clear CSF Color Colorless CSF WBC 15 CSF RBC 0 CSF Cell Count Tube # Tube # 4 CSF Mononuclear WBCs 73 CSF Polynuclear WBCs 27 CSF Glucose 45 CSF Total Protein > 250 H Syphilis Serology Nonreactive Quality Measures Quality Measures VTE prophylaxis Advance care planning discussed with:: patient and other Assessment & Plan Assessment Current Active Medications: Generic Name Dose Route Start Last Admin Trade Name Freq PRN Reason Stop Dose Admin Acetaminophen 650 mg 05/03/24 01:53 Acetaminophen 325 Mg Tablet PO 06/02/24 01:52 Q6H PRN Fever >100.4 or Pain Acetaminophen 650 mg 05/07/24 18:30 05/07/24 19:44 Acetaminophen 325 Mg Tablet PO 05/11/24 18:31 650 mg QDAY@1830 PARDEEP Administration Albuterol/Ipratropium 3 ml 05/03/24 01:59 Albuterol/Ipratropium (Duoneb) Rt Eve 3 Ml Nebu INH 06/02/24 06:59 Q6HRRT PRN Shortness of breath or wheezing Apixaban 5 mg 05/08/24 21:00 Apixaban 2.5 Mg Tablet PO 06/07/24 20:59 BID PARDEEP Dextrose 25 ml 05/06/24 10:09 Dextrose 50%-Water Inj 50 Ml Syringe IV 06/05/24 10:08 Q15MIN PRN BG 50-70 responsive npo pt Dextrose 50 ml 05/06/24 10:09 Dextrose 50%-Water Inj 50 Ml Syringe IV 06/05/24 10:08 Q15MIN PRN BG <50 OR BG <70 & pt unresponsive Diphenhydramine HCl 25 mg 05/07/24 18:30 05/07/24 19:45 Diphenhydramine Inj 50 Mg/Ml Vial IV 05/11/24 18:31 25 mg QDAY@1830 PARDEEP Administration Doxycycline Hyclate 100 mg 05/07/24 10:15 05/08/24 09:24 Doxycycline 100 Mg Tablet PO 05/14/24 10:14 100 mg BID PARDEEP Administration Fluconazole 400 mg 05/08/24 09:00 05/08/24 09:23 Fluconazole 100 Mg Tablet PO 05/15/24 08:59 400 mg QDAY PARDEEP Administration Glucagon 1 mg 05/06/24 10:09 Glucagon Inj 1 Mg Vial IM Q15MIN PRN BG <70, and no IV access Ceftriaxone Sodium 2 gm/ 50 mls @ 100 mls/hr 05/05/24 14:30 05/08/24 09:22 Sodium Chloride IV 05/12/24 14:29 100 mls/hr QDAY PARDEEP Administration Immune Globulin 20 gm/ Immune 250 mls @ 40 mls/hr 05/07/24 19:00 05/07/24 20:15 Globulin 5 gm/ IV IV 05/12/24 01:14 40 mls/hr Miscellaneous Supplies QDAY@1900 PARDEEP Administration Insulin Human Lispro 0 unit 05/06/24 11:30 05/08/24 12:21 Insulin Lispro (Admelog) 1 Unit/0.01 Ml Unit SC 06/05/24 11:29 Not Given ACHS PARDEEP Protocol Lactulose 20 gm 05/03/24 09:00 05/08/24 09:24 Lactulose Syrup 20 Gm/30 Ml Udc PO 06/02/24 08:59 20 gm BID PARDEEP Administration Protocol Metoprolol Succinate 50 mg 05/05/24 14:45 05/07/24 20:29 Metoprolol Succinate Xl 25 Mg Tabcr PO 06/04/24 14:44 50 mg QPM PARDEEP Administration Mirtazapine 30 mg 05/09/24 09:00 Mirtazapine 15 Mg Tablet PO 06/08/24 08:59 QDAY PARDEEP Ondansetron HCl 4 mg 05/03/24 01:53 05/03/24 15:37 Ondansetron Inj 2 Mg/Ml Inj 2 Ml IV 06/02/24 01:52 4 mg Q6H PRN Administration NAUSEA OR VOMITING Protocol Sennosides 2 tab 05/03/24 09:00 05/08/24 09:25 Senna/Docusate Sod 1 Tab Tablet PO 06/02/24 08:59 2 tab BID PARDEEP Administration Protocol Sertraline HCl 50 mg 05/07/24 09:00 05/08/24 09:23 Sertraline Hcl 25 Mg Tablet PO 06/06/24 08:59 50 mg BID PARDEEP Administration Trazodone HCl 100 mg 05/08/24 21:00 Trazodone Hcl 50 Mg Tablet PO 06/07/24 20:59 HS PARDEEP Plan 83-year-old male with past medical history of A-fib on Eliquis, hypertension, osteoarthritis, chronic back pain on opioids, and bradycardia s/p pacemaker was admitted to the hospital on 05/03/2024 due to sepsis likely secondary to pneumonia as well as acute encephalopathy. #Paraplegia #Ground-level fall #Syncope versus OD #Urinary incontinence #Osteomyelitis/Discitis #Tranverse myelitis #Atypical GBS ?Patient came in with inability to move his lower extremities after being found on the floor by his ex-. ? Patient stated that he took 3 oxycodone's, marijuana, and Xanax prior to his fall and he did not remember anything afterwards. ? Teleneurology initially stated to transfer patient as there was high suspicion for cauda equina given patient's presentation of lower extremity weakness/immobility and urinary incontinence ?MRI cervical spine showed C6-C7 bilateral neural foraminal stenosis ?Lumbar spine MRI showed suspicion for mild osteomyelitis with discitis at L2-L3 ?Thoracic spine MRI did not show any abnormal enhancing epidural tumor. ?Thoracic spine CT showed degenerative disc disease ? Lumbar spine CT showed multiple schmorls' nodes -Blood Cx negative in 48 hrs ? Neurology suspects transverse myelitis versus atypical GBS. ?Lumbar puncture showed increased protein levels. Plan: ? Continue Rocephin and Doxy total of 8 weeks . 2 gm rocephin once daily and doxycycline 100 bid till jun2024 ? Continue IVIG - Ordered Hantavirus send out ? Neurology consulted, appreciate recommendations ? ID consulted, appreciate recommendations ? Brain MRI with and without contrast penidng #Sepsis likely secondary to community-acquired pneumonia #Cocci pneumonia #Acute encephalopathy #Possible opioid and benzodiazepine overdose #Hx of chronic low back pain #Leukocytosis #Hypotension ?Patient came in with altered mental status and there was suspicion for overdose from opioids and benzodiazepines to which he admitted to taking 3 oxycodone's as well as Xanax and marijuana prior to the episode of loss of conscious and being found in the floor. ? U tox was positive for opioids and benzos. ? Chest x-ray showed pneumonia ?Patient came in with WBCs of 14.2 today 5.8 ? Blood pressure was on the softer side -Blood Cx negative in 48 hrs -Cocci positive -PICC line insterted by IR Plan: ? Continue ceftriaxone and Doxy -Started fluconazole ? Will continue to monitor #Hx of hypertension ? Continue metoprolol XL 50mg qday #Hx of A-fib, rate controlled -Continue Eliquis -resume metoprolol XL 50mg qday #Hx of psych disorders -Continue Zoloft -Started mirtazapine and trazadone Disposition: Patient seen in telemetry continue IVIG, fluconazole, Rocephin, Doxy. Diet: cardiac GI prophylaxis: not indicated DVT prophylaxis: Eliquis Code:full Case disclosed with Attending Dr. Leyva and my senior Dr. Galan PGY 3 Ion Haines PGY1 Attending Provider Attestation/Addendum I have examined the patient, reviewed labs and imaging findings, discussed the case with the resident(s), and reviewed entered orders. I agree with the plan of care as outlined in this note, with these additional summaries/recommendations: Patient seen at bedside. No acute overnight events. Patient and friend seen at bedside. Patient has no new symptoms to report today although he still endorses being unable to move bilateral lower extremities. Patient's friend at bedside does report he had flulike symptoms approximately 1 to 2 weeks prior to admission and possibly had diarrhea at that time. Given this history & LP findings highly suspect patient has GBS versus transverse myelitis. Neurology following and patient receiving IVIG with pretreatment medications. We will continue to monitor for improvement. Patient was also found to have osteomyelitis/discitis at L2-L3. Status post PICC line and will receive 8 weeks in total of IV Rocephin 2 g daily and p.o. Doxy 100 mg twice daily with weekly labs. Blood cultures show no growth to date and CSF analysis showed total protein greater than 250. IgM cocci returned positive and started on fluconazole. Resume home psychiatric medicines. Resume Eliquis for history of atrial fibrillation and continue metoprolol. Patient and friend updated at bedside and all questions answered to satisfaction. Patient's friend is concerned about patient possibly having hantavirus because patient's trailer is infested with mice although discussed that treatment is mainly supportive and is less likely in developed countries and that patient symptoms are more likely related to GBS/transverse myelitis. Dr. Leyva
--- NOTE | 2024-05-08 14:17 | PD.IDPROG ---
Subjective Subjective Interval history: LP appears to be neg to me. can not explain the motor issues in legs with imaging. neuro has seen and fears transverse myelitis per notes. he is a full code. does not seem to be ascending. cocci pos locally. Exam Vital Signs Temp Pulse Resp BP Pulse Ox O2 Del Method O2 Flow Rate 97.1 F 75 19 136/75 H 97 Nasal Cannula 2 05/08/24 12:00 05/08/24 12:00 05/08/24 12:00 05/08/24 12:00 05/08/24 12:00 05/08/24 12:00 05/08/24 12:00 Narrative Exam pt is not hypoxic but still unable to move. no biopsy of spine. staff indicated the wanted to talk to me, but I am unable to interact with folks that are not here . still sl slow but findings neg otherwise. Objective - Internal Medicine Labs 05/08/24 05:05 05/08/24 05:05 Labs: Laboratory Results - last 24 hr 05/07/24 05/07/24 05/08/24 04:51 15:15 05:05 WBC 5.3 RBC 3.62 L Hgb 12.1 L Hct 35.8 L MCV 99 MCH 33.4 MCHC 33.8 RDW Std Deviation 51.8 H Plt Count 285 Neut % (Auto) 67 Lymph % (Auto) 24 [place] % (Auto) 7 Eos % (Auto) 2 Baso % (Auto) 0 Neut # (Auto) 3.6 Lymph # (Auto) 1.3 [place] # (Auto) 0.4 Eos # (Auto) 0.1 Baso # (Auto) 0.0 Immature Gran # (Auto) 0.02 H Absolute Nucleated RBC 0.00 Immature Gran % 0 Nucleated RBC % 0 Sodium 138 Potassium 3.6 Chloride 106 Carbon Dioxide 25.2 Anion Gap 7 BUN 19 Creatinine 0.6 Estim Creat Clear Calc 86.6 eGFR > 60 BUN/Creatinine Ratio 32 H Glucose 101 Calculated Osmolality 277 Calcium 9.0 Corrected Calcium 9.5 Magnesium 1.9 Total Bilirubin 0.6 AST 25 ALT 20 Alkaline Phosphatase 110 Total Protein 7.1 Albumin 3.4 Globulin 3.7 H Albumin/Globulin Ratio 0.9 L Vitamin B12 471 Folate 17.12 CSF Appearance Clear CSF Color Colorless CSF WBC 15 CSF RBC 0 CSF Cell Count Tube # Tube # 4 CSF Mononuclear WBCs 73 CSF Polynuclear WBCs 27 CSF Glucose 45 CSF Total Protein > 250 H Syphilis Serology Nonreactive Assessment & Plan A&P Narrative lumbar spine process thought to be infectious with apparent paraplegia and loss of distal sensation not consistent with imaging bph, pos cocci test locally, await data at [facility]. etc ideally one has a biopsy of the affected area to guide rx, but it is more popular to just treat, if you get a deep tissue biopsy then we can narrow rx to target the germ but if there is a delay, the prior abx may sterilize the cultures if you treat empirically, then 8 weeks of rocephin 2 gm iv daily and po doxy 100 bid reasonable with weekly cbc, renal panel, esr and line removal at end of rx. please do not re image spine unless pt is not better or worse as the findings will persist for months ary at his age. (83) he is 83 and more than a little slow,evaluation for reversible causes of dementia back. syphilis screen neg, b12, folate, tsh normal. liver tests ok. doubt significant liver disease here. will see again monday as I will not be here on monday. cocci will take at least a week at [facility]. so flucon ok for now, but unlikely to explain the overall situation ok for qtf with cxr changes, but staff may put him in isolation, so that may be a better test to do as outpt. csf grossly benign, no new hx. unable to call . apologies. usually that job falls to primary team. Time Spent With Patient Time: Total time spent is greater than 50% in coordination of care (as documented) at patient's floor/unit and/or counseling patient:
[2024-05-08 15:55] LABS: Misc Send Out* See Sep Rpt
[2024-05-08] MEDS: ACETAMINOPHEN 325 MG TABLET 650 MG PO (18:24)
[2024-05-08] MEDS: DiphenhydrAMINE INJ 50 MG/ML VIAL 25 MG IV (18:25)
[2024-05-08] MEDS: PRE MIXED IV (19:08)
[2024-05-08] MEDS: IMMUNE GLOB GA CA IV (19:08)
[2024-05-08] MEDS: METOPROLOL SUCCINATE XL 25 MG TABCR 50 MG PO (20:40)
[2024-05-08] MEDS: APIXABAN 2.5 MG TABLET 5 MG PO (20:40)
[2024-05-08] MEDS: traZODone HCL 50 MG TABLET 100 MG PO (20:40)
[2024-05-08] MEDS: MELATONIN 3 MG TABLET PO (21:07)
[2024-05-08] MEDS: ALPRazoLAM 0.25 MG TABLET 1 MG PO (23:09)
--- NOTE | 2024-05-08 23:10 | PD.NEUROPROG ---
Documentation for date of: 05/08/24 Subjective Subjective Interval history: Patient seen in telemetry today, continue to have paraplegia with lack of sensation and bladder control. Has indwelling catheter in place. The back pain is not so bad, and he is able to feel the lower extremities unlike before. Tolerating intravenous immunoglobulin without any side effects Exam - Neurology Vital Signs Temp Pulse Resp BP Pulse Ox O2 Del Method O2 Flow Rate 97.0 F 75 20 136/89 H 97 Room Air 2 05/08/24 20:00 05/08/24 20:40 05/08/24 20:00 05/08/24 20:40 05/08/24 20:00 05/08/24 20:00 05/08/24 16:00 Narrative Exam GENERAL APPEARANCE: Well hydrated, well-nourished in no acute distress. HEENT: Normocephalic, atraumatic, extraocular movements intact. Pupils: Equal reacting to light and accommodation NECK: Supple, no JVD or bruits. CARDIOVASULAR: Heart: S1, S2 heard, regular without S3-S4 or murmur no rubs or gallops. LUNGS/CHEST: Clear to auscultation bilaterally. No rails, rhonchi, or wheezing. Normal inspection. ABDOMEN: Soft, nontender, with normal bowel sounds. No pulsatile masses. No rebound, rigidity, or guarding. Normal inspection and palpation. EXTREMITIES: Normal inspection and palpation. No edema, clubbing or cyanosis. SKIN: Warm and dry without rashes. Normal inspection. MUSCULOSKELETAL: No cervical, thoracic, lumbar or midline bony tenderness. Normal inspection. NEURO: Alert, awake and oriented x3. Cranial nerves: II through XII grossly intact. Speech and language: Normal with no dysarthria or dysphasia. Motor system: Tone and bulk: Normal: Strength: 5 out of 5 in both upper extremities extremities; he has dense paraplegia in both lower extremities. Deep tendon reflexes: Absent knee jerk and ankle jerk bilaterally. Plantar reflex: Downgoing bilaterally. Sensory system: improved all modalities of sensation below the waist. coordination: Intact to [id number] test bilaterally. No ataxia, no dysmetria, or dysdiadochokinesia noted. No intention tremors noted. Gait: Could not be tested. No signs of meningeal irritation noted. PSYCHIATRIC: Normal mood and affect. Objective Labs 05/08/24 05:05 05/08/24 05:05 Labs: Laboratory Results - last 24 hr 05/08/24 05:05 WBC 5.3 RBC 3.62 L Hgb 12.1 L Hct 35.8 L MCV 99 MCH 33.4 MCHC 33.8 RDW Std Deviation 51.8 H Plt Count 285 Neut % (Auto) 67 Lymph % (Auto) 24 [place] % (Auto) 7 Eos % (Auto) 2 Baso % (Auto) 0 Neut # (Auto) 3.6 Lymph # (Auto) 1.3 [place] # (Auto) 0.4 Eos # (Auto) 0.1 Baso # (Auto) 0.0 Immature Gran # (Auto) 0.02 H Absolute Nucleated RBC 0.00 Immature Gran % 0 Nucleated RBC % 0 Sodium 138 Potassium 3.6 Chloride 106 Carbon Dioxide 25.2 Anion Gap 7 BUN 19 Creatinine 0.6 Estim Creat Clear Calc 86.6 eGFR > 60 BUN/Creatinine Ratio 32 H Glucose 101 Calculated Osmolality 277 Calcium 9.0 Corrected Calcium 9.5 Magnesium 1.9 Total Bilirubin 0.6 AST 25 ALT 20 Alkaline Phosphatase 110 Total Protein 7.1 Albumin 3.4 Globulin 3.7 H Albumin/Globulin Ratio 0.9 L Assessment & Plan Assessment and plan (1) Generalized weakness: Status: Acute Assessment and plan: MRI brain showed foci of restricted diffusion in the basal ganglia with enhancement in the same regions on the postcontrast images, differential would include anoxic ischemic change, underlying neoplastic lesions less likely but not excluded. As the imaging findings remain unchanged in the lumbar spine in the last 2 years, with history of frequent falls and not sure about his baseline ambulatory status, underwent lumbar puncture by interventional radiology to rule out transverse myelitis. As there is significant elevation of protein in the CSF, started him on IVIG therapy for 5 days. Continue with passive range of motion to prevent contracture Need intense acute rehab when he finishes the 5 days treatment.
[2024-05-09] VITALS (12 sets, daily range): BP systolic 117–148; BP diastolic 75–99; PULSE 68–89; RESP 16–97; TEMP 35.8–36.8; O2SAT 95–97; BMI 20.1; BMI 12.0
[2024-05-09 06:14] LABS: Basophils % (Auto) 0 % (0-2.5); Eosinophils # (Auto) 0.2 Thou/mm3 (0.0-0.5); Eosinophils % (Auto) 4 % (0-10); Hematocrit 35.4 % (41.0-53.0); Hemoglobin 12.2 g/dL (13.5-16.0); Immature Granulocytes % (Auto) 2 % (0-0); Immature Granulocytes Auto 0.08 Thou/mm3 (0.00-0.00); Lymphocytes # (Auto) 1.5 Thou/mm3 (1.0-4.8); Lymphocytes % (Auto) 28 % (10-50); Mean Corpuscular HGB Conc 34.5 g/dl (31.0-37.0); Mean Corpuscular Hemoglobin 34.1 pg (25.0-35.0); Mean Corpuscular Volume 99 fL (80-100); Monocytes # (Auto) 0.5 Thou/mm3 (0.0-0.8); Monocytes % (Auto) 9 % (0-12); Neutrophils # (Auto) 3.1 Thou/mm3 (1.8-7.7); Neutrophils % (Auto) 57 % (37-80); Nucleated Red Blood Cell % 0 /100 WBC (0); Platelet Count 274 Thou/mm3 (140-440); RDW Standard Deviation 52.6 fL (35.1-43.9); Red Blood Count 3.58 Miln/mm3 (4.50-5.90); White Blood Count 5.4 Thou/mm3 (3.8-10.6)
[2024-05-09 07:04] LABS: Alanine Aminotransferase 16 U/L (10-49); Albumin, Serum 3.5 gm/dL (3.4-4.8); Albumin/Globulin Ratio 0.9 (1.2-2.2); Alkaline Phosphatase 109 U/L (46-116); Anion Gap 5 (7-16); Aspartate Amino Transferase 21 U/L (0-34); BUN/Creatinine Ratio 24 Ratio (12-20); Bilirubin,Total 0.6 mg/dL (0.3-1.2); Blood Urea Nitrogen 19 mg/dL (9-23); Calcium 9.2 mg/dL (8.3-10.6); Calcium (Corrected) 9.6 mg/dL (8.5-10.1); Carbon Dioxide 28.1 mMol/L (20.0-31.0); Chloride 105 mMol/L (98-107); Creatinine (Component) 0.8 mg/dL (0.6-1.3); Estimated Creatinine Clearance 63.5 mL/min (>60); Globulin 3.9 gm/dL (2.3-3.5); Glucose 94 mg/dL (74-106); Osmolality,Calculated 277 (275-295); Potassium 3.6 mMol/L (3.4-5.1); Sodium 138 mMol/L (136-145); Total Protein 7.4 gm/dL (5.7-8.2); eGFR > 60 See Note
[2024-05-09 07:16] LABS: Hepatitis C Antibody Non Reactive (Non React)
[2024-05-09 07:48] LABS: Coccid Serology, CF CSF (UCD)* See Sep Rpt
--- NOTE | 2024-05-09 09:00 | PD.RESPRO ---
Documentation for date of: 05/09/24 Subjective Subjective Interval history: Patient seen at bedside this morning. No overnight events. Patient was a little bit more engaged today and it appears that he is more engaged and conversations that he likes and she was more engaged when asked about what he was reading this morning. Will continue IVIG for now he is currently on day 3 and will continue Rocephin and Doxy. Patient had some sensation on his lower extremities today, but is still unable to move them. No other complaints at this time. Exam Vital Signs Temp Pulse Resp BP Pulse Ox O2 Del Method O2 Flow Rate 97.0 F 71 17 148/99 H 95 Room Air 2 05/09/24 08:00 05/09/24 08:00 05/09/24 08:00 05/09/24 08:00 05/09/24 08:00 05/09/24 08:00 05/09/24 04:00 Narrative Exam General: A/O x3, ill-appearing Eyes: PERRL, EOMI. Anicteric, vision grossly intact. Ears: No ear pain, no ear discharge, Hearing impaired. Nose: No nasal discharge. Mouth/Throat: Dry mucous membranes, no redness, no lesions. Neck: Neck supple, non-tender, no cervical lymphadenopathy. Lungs: Clear TIBURCIO to auscultation and percussion, No accessory muscle use. Cardio: Normal S1/S2, irregular rhythm, no murmurs, no JVD Abdomen: Soft,but distended, non-tender, no palpable masses, peristalsis present, no guarding or rebound. Extremities: Symmetrical, no significant deformities, trace peripheral edema , non-tender, peripheral pulses presents. Skin: No rashes, no lesions, warm to touch. Neuro: Still unable to move Tiburcio LE, sensation decreased in TIBURCIO LE, but improving, UE strength/sensation intact, still very withdrawn. Objective Labs 05/10/24 04:33 05/10/24 04:33 Labs: Laboratory Results - last 24 hr 05/07/24 05/09/24 04:51 05:35 WBC 5.4 RBC 3.58 L Hgb 12.2 L Hct 35.4 L MCV 99 MCH 34.1 MCHC 34.5 RDW Std Deviation 52.6 H Plt Count 274 Neut % (Auto) 57 Lymph % (Auto) 28 [place] % (Auto) 9 Eos % (Auto) 4 Baso % (Auto) 0 Neut # (Auto) 3.1 Lymph # (Auto) 1.5 [place] # (Auto) 0.5 Eos # (Auto) 0.2 Baso # (Auto) 0.0 Immature Gran # (Auto) 0.08 H Absolute Nucleated RBC 0.00 Immature Gran % 2 H Nucleated RBC % 0 Sodium 138 Potassium 3.6 Chloride 105 Carbon Dioxide 28.1 Anion Gap 5 L BUN 19 Creatinine 0.8 Estim Creat Clear Calc 63.5 eGFR > 60 BUN/Creatinine Ratio 24 H Glucose 94 Calculated Osmolality 277 Calcium 9.2 Corrected Calcium 9.6 Magnesium 2.0 Total Bilirubin 0.6 AST 21 ALT 16 Alkaline Phosphatase 109 Total Protein 7.4 Albumin 3.5 Globulin 3.9 H Albumin/Globulin Ratio 0.9 L Hepatitis C Antibody Non Reactive TB Test (QFT) See Sep Rpt Quality Measures Quality Measures VTE prophylaxis Advance care planning discussed with:: patient Assessment & Plan Assessment Current Active Medications: Generic Name Dose Route Start Last Admin Trade Name Freq PRN Reason Stop Dose Admin Acetaminophen 650 mg 05/03/24 01:53 Acetaminophen 325 Mg Tablet PO 06/02/24 01:52 Q6H PRN Fever >100.4 or Pain Acetaminophen 650 mg 05/07/24 18:30 05/08/24 18:24 Acetaminophen 325 Mg Tablet PO 05/11/24 18:31 650 mg QDAY@1830 PARDEEP Administration Albuterol/Ipratropium 3 ml 05/03/24 01:59 Albuterol/Ipratropium (Duoneb) Rt Eve 3 Ml Nebu INH 06/02/24 06:59 Q6HRRT PRN Shortness of breath or wheezing Apixaban 5 mg 05/08/24 21:00 05/08/24 20:40 Apixaban 2.5 Mg Tablet PO 06/07/24 20:59 5 mg BID PARDEEP Administration Dextrose 25 ml 05/06/24 10:09 Dextrose 50%-Water Inj 50 Ml Syringe IV 06/05/24 10:08 Q15MIN PRN BG 50-70 responsive npo pt Dextrose 50 ml 05/06/24 10:09 Dextrose 50%-Water Inj 50 Ml Syringe IV 06/05/24 10:08 Q15MIN PRN BG <50 OR BG <70 & pt unresponsive Diphenhydramine HCl 25 mg 05/07/24 18:30 05/08/24 18:25 Diphenhydramine Inj 50 Mg/Ml Vial IV 05/11/24 18:31 25 mg QDAY@1830 PARDEEP Administration Doxycycline Hyclate 100 mg 05/07/24 10:15 05/08/24 20:40 Doxycycline 100 Mg Tablet PO 05/14/24 10:14 100 mg BID PARDEEP Administration Fluconazole 400 mg 05/08/24 09:00 05/08/24 09:23 Fluconazole 100 Mg Tablet PO 05/15/24 08:59 400 mg QDAY PARDEEP Administration Glucagon 1 mg 05/06/24 10:09 Glucagon Inj 1 Mg Vial IM Q15MIN PRN BG <70, and no IV access Ceftriaxone Sodium 2 gm/ 50 mls @ 100 mls/hr 05/05/24 14:30 05/08/24 09:22 Sodium Chloride IV 05/12/24 14:29 100 mls/hr QDAY PARDEEP Administration Immune Globulin 20 gm/ Immune 250 mls @ 40 mls/hr 05/07/24 19:00 05/08/24 19:08 Globulin 5 gm/ IV IV 05/12/24 01:14 40 mls/hr Miscellaneous Supplies QDAY@1900 PARDEEP Administration Insulin Human Lispro 0 unit 05/06/24 11:30 05/08/24 20:41 Insulin Lispro (Admelog) 1 Unit/0.01 Ml Unit SC 06/05/24 11:29 Not Given ACHS [facility] Protocol Lactulose 20 gm 05/03/24 09:00 05/08/24 20:41 Lactulose Syrup 20 Gm/30 Ml Udc PO 06/02/24 08:59 Not Given BID [facility] Protocol Metoprolol Succinate 50 mg 05/05/24 14:45 05/08/24 20:40 Metoprolol Succinate Xl 25 Mg Tabcr PO 06/04/24 14:44 50 mg QPM PARDEEP Administration Mirtazapine 30 mg 05/09/24 09:00 Mirtazapine 15 Mg Tablet PO 06/08/24 08:59 QDAY [facility] Ondansetron HCl 4 mg 05/03/24 01:53 05/03/24 15:37 Ondansetron Inj 2 Mg/Ml Inj 2 Ml IV 06/02/24 01:52 4 mg Q6H PRN Administration NAUSEA OR VOMITING Protocol Sennosides 2 tab 05/03/24 09:00 05/08/24 20:41 Senna/Docusate Sod 1 Tab Tablet PO 06/02/24 08:59 2 tab BID PARDEEP Administration Protocol Sertraline HCl 50 mg 05/07/24 09:00 05/08/24 20:40 Sertraline Hcl 25 Mg Tablet PO 06/06/24 08:59 50 mg BID PARDEEP Administration Trazodone HCl 100 mg 05/08/24 21:00 05/08/24 20:40 Trazodone Hcl 50 Mg Tablet PO 06/07/24 20:59 100 mg HS PARDEEP Administration Plan 83-year-old male with past medical history of A-fib on Eliquis, hypertension, osteoarthritis, chronic back pain on opioids, and bradycardia s/p pacemaker was admitted to the hospital on 05/03/2024 due to sepsis likely secondary to pneumonia as well as acute encephalopathy. #Paraplegia #Ground-level fall #Syncope versus OD #Urinary incontinence #Osteomyelitis/Discitis #Tranverse myelitis #Atypical GBS ?Patient came in with inability to move his lower extremities after being found on the floor by his ex-. ? Patient stated that he took 3 oxycodone's, marijuana, and Xanax prior to his fall and he did not remember anything afterwards. ? Teleneurology initially stated to transfer patient as there was high suspicion for cauda equina given patient's presentation of lower extremity weakness/immobility and urinary incontinence ?MRI cervical spine showed C6-C7 bilateral neural foraminal stenosis ?Lumbar spine MRI showed suspicion for mild osteomyelitis with discitis at L2-L3 ?Thoracic spine MRI did not show any abnormal enhancing epidural tumor. ?Thoracic spine CT showed degenerative disc disease ? Lumbar spine CT showed multiple schmorls' nodes -Blood Cx negative in 48 hrs ? Neurology suspects transverse myelitis versus atypical GBS. ?Lumbar puncture showed increased protein levels. Plan: ? Continue Rocephin and Doxy total of 8 weeks . 2 gm rocephin once daily and doxycycline 100 bid till jun2024 ? Continue IVIG (day 3 today) - Ordered Hantavirus send out ? Neurology consulted, appreciate recommendations ? ID consulted, appreciate recommendations ? Brain MRI with and without contrast penidng #Sepsis likely secondary to community-acquired pneumonia #Cocci pneumonia #Acute encephalopathy #Possible opioid and benzodiazepine overdose #Hx of chronic low back pain #Leukocytosis #Hypotension ?Patient came in with altered mental status and there was suspicion for overdose from opioids and benzodiazepines to which he admitted to taking 3 oxycodone's as well as Xanax and marijuana prior to the episode of loss of conscious and being found in the floor. ? U tox was positive for opioids and benzos. ? Chest x-ray showed pneumonia ?Patient came in with WBCs of 14.2 today 5.4 ? Blood pressure was on the softer side -Blood Cx negative in 48 hrs -Cocci positive -PICC line insterted by IR Plan: ? Continue Rocephin and Doxy total of 8 weeks . 2 gm rocephin once daily and doxycycline 100 bid till jun2024 -Continue fluconazole ? Will continue to monitor #Hx of hypertension ? Continue metoprolol XL 50mg qday #Hx of A-fib, rate controlled -Continue Eliquis -resume metoprolol XL 50mg qday #Hx of psych disorders -Continue Zoloft -Started mirtazapine and trazadone Disposition: Patient seen in telemetry continue IVIG, fluconazole, Rocephin, Doxy. Diet: cardiac GI prophylaxis: not indicated DVT prophylaxis: Eliquis Code:full Case disclosed with Attending Dr. Leyva and my senior Dr. Lin PGY 2 Ion Haines PGY1 Senior Resident Attestation: The patient continues to have Paraplegia. We will complete 5 days of IVIG. We will continue with doxycycline, ceftriaxone and fluconazole for now. The patient will be discharged to [facility] once we complete IVIG. I discussed with and supervised the business development intern physician involved in the care of this patient. I personally saw and examined the patient and discussed the assessment and plan with the entire medicine team, including my attending. I agree with the assessment and plan as documented above. Jaxon Lin MD PGY2 Internal Medicine Attending Provider Attestation/Addendum I have examined the patient, reviewed labs and imaging findings, discussed the case with the resident(s), and reviewed entered orders. I agree with the plan of care as outlined in this note, with these additional summaries/recommendations: Patient seen at bedside. No acute overnight events. Patient reports minor improvement in his bilateral lower extremity weakness. Neurology following and patient receiving IVIG with pretreatment medications for likely transverse myelitis. We will continue to monitor for improvement. Patient was also found to have osteomyelitis/discitis at L2-L3. Status post PICC line and will receive 8 weeks in total of IV Rocephin 2 g daily and p.o. Doxy 100 mg twice daily with weekly labs. Blood cultures show no growth to date and CSF analysis showed total protein greater than 250. IgM cocci returned positive and receiving fluconazole. Continue home psychiatric medicines. Continue Eliquis for history of atrial fibrillation and metoprolol. Patient updated on the plan and in agreement. Repeat hematology and chemistry panel in AM. Dr. Leyva
[2024-05-09] MEDS: APIXABAN 2.5 MG TABLET 5 MG PO ×2 (09:51→20:59)
[2024-05-09] MEDS: POTASSIUM CHLORIDE 20 mEq TABCR 40 MEQ PO (09:51)
[2024-05-09] MEDS: FLUCONAZOLE 100 MG TABLET 400 MG PO (09:51)
[2024-05-09] MEDS: DOXYCYCLINE 100 MG TABLET PO ×2 (09:51→20:59)
[2024-05-09] MEDS: SENNA/DOCUSATE SOD 1 TAB TABLET 2 TAB PO ×2 (09:51→21:00)
[2024-05-09] MEDS: SERTRALINE HCL 25 MG TABLET 50 MG PO ×2 (09:51→21:00)
[2024-05-09] MEDS: LACTULOSE SYRUP 20 GM/30 ML UDC PO (09:51)
[2024-05-09] MEDS: MIRTAZAPINE 15 MG TABLET 30 MG PO (09:52)
[2024-05-09] MEDS: cefTRIAXone 2 GM in SODIUM CHLORIDE 0.9% (P) 50 ML IV (09:53)
--- NOTE | 2024-05-09 14:43 | PD.RESPRO ---
Documentation for date of: 05/09/24 Exam Vital Signs Temp Pulse Resp BP Pulse Ox O2 Del Method O2 Flow Rate 96.8 F 68 18 124/75 96 Room Air 2 05/09/24 11:49 05/09/24 12:00 05/09/24 11:49 05/09/24 11:49 05/09/24 11:49 05/09/24 11:49 05/09/24 04:00 Objective Labs 05/09/24 05:35 05/09/24 05:35 Labs: Laboratory Results - last 24 hr 05/07/24 05/09/24 04:51 05:35 WBC 5.4 RBC 3.58 L Hgb 12.2 L Hct 35.4 L MCV 99 MCH 34.1 MCHC 34.5 RDW Std Deviation 52.6 H Plt Count 274 Neut % (Auto) 57 Lymph % (Auto) 28 [place] % (Auto) 9 Eos % (Auto) 4 Baso % (Auto) 0 Neut # (Auto) 3.1 Lymph # (Auto) 1.5 [place] # (Auto) 0.5 Eos # (Auto) 0.2 Baso # (Auto) 0.0 Immature Gran # (Auto) 0.08 H Absolute Nucleated RBC 0.00 Immature Gran % 2 H Nucleated RBC % 0 Sodium 138 Potassium 3.6 Chloride 105 Carbon Dioxide 28.1 Anion Gap 5 L BUN 19 Creatinine 0.8 Estim Creat Clear Calc 63.5 eGFR > 60 BUN/Creatinine Ratio 24 H Glucose 94 Calculated Osmolality 277 Calcium 9.2 Corrected Calcium 9.6 Magnesium 2.0 Total Bilirubin 0.6 AST 21 ALT 16 Alkaline Phosphatase 109 Total Protein 7.4 Albumin 3.5 Globulin 3.9 H Albumin/Globulin Ratio 0.9 L Hepatitis C Antibody Non Reactive TB Test (QFT) See Sep Rpt Misc Test Result Cancelled Quality Measures Quality Measures VTE prophylaxis Assessment & Plan Assessment Current Active Medications: Generic Name Dose Route Start Last Admin Trade Name Freq PRN Reason Stop Dose Admin Acetaminophen 650 mg 05/03/24 01:53 Acetaminophen 325 Mg Tablet PO 06/02/24 01:52 Q6H PRN Fever >100.4 or Pain Acetaminophen 650 mg 05/07/24 18:30 05/08/24 18:24 Acetaminophen 325 Mg Tablet PO 05/11/24 18:31 650 mg QDAY@1830 PARDEEP Administration Albuterol/Ipratropium 3 ml 05/03/24 01:59 Albuterol/Ipratropium (Duoneb) Rt Eve 3 Ml Nebu INH 06/02/24 06:59 Q6HRRT PRN Shortness of breath or wheezing Apixaban 5 mg 05/08/24 21:00 05/09/24 09:51 Apixaban 2.5 Mg Tablet PO 06/07/24 20:59 5 mg BID PARDEEP Administration Dextrose 25 ml 05/06/24 10:09 Dextrose 50%-Water Inj 50 Ml Syringe IV 06/05/24 10:08 Q15MIN PRN BG 50-70 responsive npo pt Dextrose 50 ml 05/06/24 10:09 Dextrose 50%-Water Inj 50 Ml Syringe IV 06/05/24 10:08 Q15MIN PRN BG <50 OR BG <70 & pt unresponsive Diphenhydramine HCl 25 mg 05/07/24 18:30 05/08/24 18:25 Diphenhydramine Inj 50 Mg/Ml Vial IV 05/11/24 18:31 25 mg QDAY@1830 PARDEEP Administration Doxycycline Hyclate 100 mg 05/07/24 10:15 05/09/24 09:51 Doxycycline 100 Mg Tablet PO 05/14/24 10:14 100 mg BID PARDEEP Administration Fluconazole 400 mg 05/08/24 09:00 05/09/24 09:51 Fluconazole 100 Mg Tablet PO 05/15/24 08:59 400 mg QDAY PARDEEP Administration Glucagon 1 mg 05/06/24 10:09 Glucagon Inj 1 Mg Vial IM Q15MIN PRN BG <70, and no IV access Immune Globulin 20 gm/ Immune 250 mls @ 40 mls/hr 05/07/24 19:00 05/08/24 19:08 Globulin 5 gm/ IV IV 05/12/24 01:14 40 mls/hr Miscellaneous Supplies QDAY@1900 PARDEEP Administration Ceftriaxone Sodium 2 gm/ 50 mls @ 100 mls/hr 05/10/24 09:00 Sodium Chloride IV 05/12/24 14:29 QDAY [facility] Insulin Human Lispro 0 unit 05/06/24 11:30 05/09/24 11:42 Insulin Lispro (Admelog) 1 Unit/0.01 Ml Unit SC 06/05/24 11:29 Not Given ACHS [facility] Protocol Lactulose 20 gm 05/03/24 09:00 05/09/24 09:51 Lactulose Syrup 20 Gm/30 Ml Udc PO 06/02/24 08:59 20 gm BID PARDEEP Administration Protocol Metoprolol Succinate 50 mg 05/05/24 14:45 05/08/24 20:40 Metoprolol Succinate Xl 25 Mg Tabcr PO 06/04/24 14:44 50 mg QPM PARDEEP Administration Mirtazapine 30 mg 05/09/24 09:00 05/09/24 09:52 Mirtazapine 15 Mg Tablet PO 06/08/24 08:59 30 mg QDAY PARDEEP Administration Ondansetron HCl 4 mg 05/03/24 01:53 05/03/24 15:37 Ondansetron Inj 2 Mg/Ml Inj 2 Ml IV 06/02/24 01:52 4 mg Q6H PRN Administration NAUSEA OR VOMITING Protocol Sennosides 2 tab 05/03/24 09:00 05/09/24 09:51 Senna/Docusate Sod 1 Tab Tablet PO 06/02/24 08:59 2 tab BID PARDEEP Administration Protocol Sertraline HCl 50 mg 05/07/24 09:00 05/09/24 09:51 Sertraline Hcl 25 Mg Tablet PO 06/06/24 08:59 50 mg BID PARDEEP Administration Trazodone HCl 100 mg 05/08/24 21:00 05/08/24 20:40 Trazodone Hcl 50 Mg Tablet PO 06/07/24 20:59 100 mg HS PARDEEP Administration
--- NOTE | 2024-05-09 15:54 | PC.PT ---
Patient will need multi podus boot (AFO) to prevent heel pressure sore and prevent ankle PF contracture. Informed Dr. Galan and obtain Telephone order for AFO on bilateral LE.
[2024-05-09] MEDS: ACETAMINOPHEN 325 MG TABLET 650 MG PO (18:21)
[2024-05-09] MEDS: DiphenhydrAMINE INJ 50 MG/ML VIAL 25 MG IV (18:21)
[2024-05-09] MEDS: IMMUNE GLOB GA CA IV (18:52)
[2024-05-09] MEDS: PRE MIXED IV (18:52)
[2024-05-09] MEDS: ALPRazoLAM 0.25 MG TABLET 0.5 MG PO (20:58)
[2024-05-09] MEDS: oxyCODONE/APAP 5/325 TABLET 1 TAB PO (20:58)
[2024-05-09] MEDS: traZODone HCL 50 MG TABLET 100 MG PO (21:00)
[2024-05-09] MEDS: METOPROLOL SUCCINATE XL 25 MG TABCR 50 MG PO (21:02)
--- NOTE | 2024-05-09 23:53 | ESPR_ITS ---
Documentation for date of: 05/09/24 Subjective Subjective Interval history: Patient seen in telemetry today, continue to have paraplegia with lack of sensation and bladder control. Has indwelling catheter in place. The back pain is not so bad, and he is able to feel the lower extremities unlike before. Tolerating intravenous immunoglobulin without any side effects. Exam - Neurology Vital Signs Temp Pulse Resp BP Pulse Ox O2 Del Method O2 Flow Rate 98.3 F 89 18 130/78 95 Room Air 2 05/09/24 20:00 05/09/24 21:02 05/09/24 20:00 05/09/24 21:02 05/09/24 20:00 05/09/24 20:00 05/09/24 04:00 Narrative Exam GENERAL APPEARANCE: Well hydrated, well-nourished in no acute distress. HEENT: Normocephalic, atraumatic, extraocular movements intact. Pupils: Equal reacting to light and accommodation NECK: Supple, no JVD or bruits. CARDIOVASULAR: Heart: S1, S2 heard, regular without S3-S4 or murmur no rubs or gallops. LUNGS/CHEST: Clear to auscultation bilaterally. No rails, rhonchi, or wheezing. Normal inspection. ABDOMEN: Soft, nontender, with normal bowel sounds. No pulsatile masses. No rebound, rigidity, or guarding. Normal inspection and palpation. EXTREMITIES: Normal inspection and palpation. No edema, clubbing or cyanosis. SKIN: Warm and dry without rashes. Normal inspection. MUSCULOSKELETAL: No cervical, thoracic, lumbar or midline bony tenderness. Normal inspection. NEURO: Alert, awake and oriented x3. Cranial nerves: II through XII grossly intact. Speech and language: Normal with no dysarthria or dysphasia. Motor system: Tone and bulk: Normal: Strength: 5 out of 5 in both upper extremities extremities; he has dense paraplegia in both lower extremities. Deep tendon reflexes: Absent knee jerk and ankle jerk bilaterally. Plantar reflex: Downgoing bilaterally. Sensory system: improved all modalities of sensation below the waist. coordination: Intact to [id number] test bilaterally. No ataxia, no dysmetria, or dysdiadochokinesia noted. No intention tremors noted. Gait: Could not be tested. No signs of meningeal irritation noted. PSYCHIATRIC: Significantly depressed, talked about his 's recently. Objective Labs 05/10/24 04:33 05/10/24 04:33 Labs: Laboratory Results - last 24 hr 05/07/24 05/09/24 04:51 05:35 WBC 5.4 RBC 3.58 L Hgb 12.2 L Hct 35.4 L MCV 99 MCH 34.1 MCHC 34.5 RDW Std Deviation 52.6 H Plt Count 274 Neut % (Auto) 57 Lymph % (Auto) 28 [place] % (Auto) 9 Eos % (Auto) 4 Baso % (Auto) 0 Neut # (Auto) 3.1 Lymph # (Auto) 1.5 [place] # (Auto) 0.5 Eos # (Auto) 0.2 Baso # (Auto) 0.0 Immature Gran # (Auto) 0.08 H Absolute Nucleated RBC 0.00 Immature Gran % 2 H Nucleated RBC % 0 Sodium 138 Potassium 3.6 Chloride 105 Carbon Dioxide 28.1 Anion Gap 5 L BUN 19 Creatinine 0.8 Estim Creat Clear Calc 63.5 eGFR > 60 BUN/Creatinine Ratio 24 H Glucose 94 Calculated Osmolality 277 Calcium 9.2 Corrected Calcium 9.6 Magnesium 2.0 Total Bilirubin 0.6 AST 21 ALT 16 Alkaline Phosphatase 109 Total Protein 7.4 Albumin 3.5 Globulin 3.9 H Albumin/Globulin Ratio 0.9 L Hepatitis C Antibody Non Reactive TB Test (QFT) See Sep Rpt Misc Test Result Cancelled Assessment & Plan Assessment and plan (1) Generalized weakness: Status: Acute Assessment and plan: 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 As the imaging findings remain unchanged in the lumbar spine in the last 2 years, with history of frequent falls and not sure about his baseline ambulatory status, underwent lumbar puncture by interventional radiology to rule out transverse myelitis. As there is significant elevation of protein in the CSF, started him on IVIG therapy for 5 days. Continue with passive range of motion to prevent contracture Need intense acute rehab when he finishes the 5 days treatment. Made changes to his antidepressant regimen: Discontinued sertraline and mirtazapine and added Cymbalta for dual benefits.
[2024-05-10] VITALS (11 sets, daily range): BP systolic 106–140; BP diastolic 69–86; PULSE 12–106; RESP 16–97; TEMP 36.4–36.7; O2SAT 95–98; BMI 20.3; BMI 12.0
--- NOTE | 2024-05-10 01:45 | PC.NURSE ---
Multiple calls from [employer] tele monitor, pt restless, taking off monitor, gown, blankets, pt very forgetful and confused, re-oriented multiple times, unable to rest despite being tired. reports to be cold but takes off blankets. Unable to sleep, , called and notified, awaiting orders.
[2024-05-10 05:32] LABS: Basophils % (Auto) 0 % (0-2.5); Eosinophils # (Auto) 0.2 Thou/mm3 (0.0-0.5); Eosinophils % (Auto) 4 % (0-10); Hematocrit 35.4 % (41.0-53.0); Hemoglobin 11.7 g/dL (13.5-16.0); Immature Granulocytes % (Auto) 2 % (0-0); Immature Granulocytes Auto 0.07 Thou/mm3 (0.00-0.00); Lymphocytes # (Auto) 1.4 Thou/mm3 (1.0-4.8); Lymphocytes % (Auto) 29 % (10-50); Mean Corpuscular HGB Conc 33.1 g/dl (31.0-37.0); Mean Corpuscular Hemoglobin 33.4 pg (25.0-35.0); Mean Corpuscular Volume 101 fL (80-100); Monocytes # (Auto) 0.4 Thou/mm3 (0.0-0.8); Monocytes % (Auto) 9 % (0-12); Neutrophils # (Auto) 2.7 Thou/mm3 (1.8-7.7); Neutrophils % (Auto) 56 % (37-80); Nucleated Red Blood Cell % 0 /100 WBC (0); Platelet Count 272 Thou/mm3 (140-440); White Blood Count 4.7 Thou/mm3 (3.8-10.6)
[2024-05-10 06:21] LABS: Alanine Aminotransferase 17 U/L (10-49); Albumin, Serum 3.3 gm/dL (3.4-4.8); Albumin/Globulin Ratio 0.8 (1.2-2.2); Alkaline Phosphatase 107 U/L (46-116); Anion Gap 6 (7-16); Aspartate Amino Transferase 24 U/L (0-34); BUN/Creatinine Ratio 28 Ratio (12-20); Bilirubin,Total 0.3 mg/dL (0.3-1.2); Blood Urea Nitrogen 22 mg/dL (9-23); Calcium 9.1 mg/dL (8.3-10.6); Calcium (Corrected) 9.7 mg/dL (8.5-10.1); Carbon Dioxide 25.8 mMol/L (20.0-31.0); Chloride 104 mMol/L (98-107); Creatinine (Component) 0.8 mg/dL (0.6-1.3); Estimated Creatinine Clearance 64.1 mL/min (>60); Globulin 4.4 gm/dL (2.3-3.5); Glucose 86 mg/dL (74-106); Osmolality,Calculated 274 (275-295); Potassium 3.8 mMol/L (3.4-5.1); Sodium 136 mMol/L (136-145); Total Protein 7.7 gm/dL (5.7-8.2); eGFR > 60 See Note
--- NOTE | 2024-05-10 09:00 | PC.NURSE ---
Sheila came and applied multipodus boot to bilateral lower extremities.
[2024-05-10] MEDS: LACTULOSE SYRUP 20 GM/30 ML UDC PO (09:49)
[2024-05-10] MEDS: SENNA/DOCUSATE SOD 1 TAB TABLET 2 TAB PO (09:50)
[2024-05-10] MEDS: FLUCONAZOLE 100 MG TABLET 400 MG PO (09:50)
[2024-05-10] MEDS: POTASSIUM CHLORIDE 20 mEq TABCR 40 MEQ PO (09:50)
[2024-05-10] MEDS: DOXYCYCLINE 100 MG TABLET PO ×2 (09:50→21:39)
[2024-05-10] MEDS: DULoxetine HCL 30 MG CAPSULE PO (09:50)
[2024-05-10] MEDS: APIXABAN 2.5 MG TABLET 5 MG PO ×2 (09:51→21:39)
--- NOTE | 2024-05-10 13:53 | ESPR_ITS ---
<Statement entered by Eden Galan MD - 05/10/24 18:31> Day 4 of IVIg, will continue IVIG Dr Simpson discontinued sertraline and mirtazapine and added Cymbalta. In the evening around 6 PM patient had A-fib with RVR up to 160s. Stat EKG was done which showed A-fib with RVR. 5 mg of IV metoprolol was given. And the patient heart rate came down high 90s I discussed with and supervised my co-resident involved in the care of this patient. I agree with the assessment and plan as documented above. Eden Galan,PGY-3 Disclaimer: Despite multiple revisions, due to the dictation software being used, the document below may not be free of grammatical errors including phonetic/typographic errors. However, this does not deter from our commitment to providing health care in the patient's best interest in mind. Documentation for date of: 05/10/24 Subjective Subjective Interval history: Patient seen patient this morning. No overnight events. Neurology changed started patient on Cymbalta and discontinue sertraline and mirtazapine. Patient is still unable to move his lower extremities and still has decreased sensation on bilateral lower extremity. Patient was more engaged today. No other complaints at this time. Day 4 of IVIG. Exam Vital Signs Temp Pulse Resp BP Pulse Ox O2 Del Method O2 Flow Rate 97.9 F 86 18 127/80 97 Room Air 2 05/10/24 12:00 05/10/24 12:11 05/10/24 12:11 05/10/24 12:00 05/10/24 12:11 05/10/24 12:00 05/09/24 04:00 Narrative Exam General: A/O x3, ill-appearing Eyes: PERRL, EOMI. Anicteric, vision grossly intact. Ears: No ear pain, no ear discharge, Hearing impaired. Nose: No nasal discharge. Mouth/Throat: Dry mucous membranes, no redness, no lesions. Neck: Neck supple, non-tender, no cervical lymphadenopathy. Lungs: Clear TIBURCIO to auscultation and percussion, No accessory muscle use. Cardio: Normal S1/S2, irregular rhythm, no murmurs, no JVD Abdomen: Soft,but distended, non-tender, no palpable masses, peristalsis present, no guarding or rebound. Extremities: Symmetrical, no significant deformities, trace peripheral edema , non-tender, peripheral pulses presents. Skin: No rashes, no lesions, warm to touch. Neuro: Still unable to move Tiburcio LE, sensation decreased in TIBURCIO LE, but improving, UE strength/sensation intact, a little bit less withdrawn and more engaging today Objective Labs 05/10/24 04:33 05/10/24 04:33 Labs: Laboratory Results - last 24 hr 05/10/24 04:33 WBC 4.7 RBC 3.50 L Hgb 11.7 L Hct 35.4 L MCV 101 H MCH 33.4 MCHC 33.1 RDW Std Deviation 55.0 H Plt Count 272 Neut % (Auto) 56 Lymph % (Auto) 29 [place] % (Auto) 9 Eos % (Auto) 4 Baso % (Auto) 0 Neut # (Auto) 2.7 Lymph # (Auto) 1.4 [place] # (Auto) 0.4 Eos # (Auto) 0.2 Baso # (Auto) 0.0 Immature Gran # (Auto) 0.07 H Absolute Nucleated RBC 0.00 Immature Gran % 2 H Nucleated RBC % 0 Sodium 136 Potassium 3.8 Chloride 104 Carbon Dioxide 25.8 Anion Gap 6 L BUN 22 Creatinine 0.8 Estim Creat Clear Calc 64.1 eGFR > 60 BUN/Creatinine Ratio 28 H Glucose 86 Calculated Osmolality 274 L Calcium 9.1 Corrected Calcium 9.7 Magnesium 2.0 Total Bilirubin 0.3 AST 24 ALT 17 Alkaline Phosphatase 107 Total Protein 7.7 Albumin 3.3 L Globulin 4.4 H Albumin/Globulin Ratio 0.8 L Quality Measures Quality Measures VTE prophylaxis Advance care planning discussed with:: patient Assessment & Plan Assessment Current Active Medications: Generic Name Dose Route Start Last Admin Trade Name Freq PRN Reason Stop Dose Admin Acetaminophen 650 mg 05/03/24 01:53 Acetaminophen 325 Mg Tablet PO 06/02/24 01:52 Q6H PRN Fever >100.4 or Pain Acetaminophen 650 mg 05/07/24 18:30 05/09/24 18:21 Acetaminophen 325 Mg Tablet PO 05/11/24 18:31 650 mg QDAY@1830 PARDEEP Administration Albuterol/Ipratropium 3 ml 05/03/24 01:59 Albuterol/Ipratropium (Duoneb) Rt Eve 3 Ml Nebu INH 06/02/24 06:59 Q6HRRT PRN Shortness of breath or wheezing Apixaban 5 mg 05/08/24 21:00 05/10/24 09:51 Apixaban 2.5 Mg Tablet PO 06/07/24 20:59 5 mg BID PARDEEP Administration Dextrose 25 ml 05/06/24 10:09 Dextrose 50%-Water Inj 50 Ml Syringe IV 06/05/24 10:08 Q15MIN PRN BG 50-70 responsive npo pt Dextrose 50 ml 05/06/24 10:09 Dextrose 50%-Water Inj 50 Ml Syringe IV 06/05/24 10:08 Q15MIN PRN BG <50 OR BG <70 & pt unresponsive Diphenhydramine HCl 25 mg 05/07/24 18:30 05/09/24 18:21 Diphenhydramine Inj 50 Mg/Ml Vial IV 05/11/24 18:31 25 mg QDAY@1830 PARDEEP Administration Doxycycline Hyclate 100 mg 05/07/24 10:15 05/10/24 09:50 Doxycycline 100 Mg Tablet PO 05/14/24 10:14 100 mg BID PARDEEP Administration Duloxetine HCl 30 mg 05/10/24 09:00 05/10/24 09:50 Duloxetine Hcl 30 Mg Capsule PO 06/09/24 08:59 30 mg QDAY PARDEEP Administration Fluconazole 400 mg 05/08/24 09:00 05/10/24 09:50 Fluconazole 100 Mg Tablet PO 05/15/24 08:59 400 mg QDAY PARDEEP Administration Glucagon 1 mg 05/06/24 10:09 Glucagon Inj 1 Mg Vial IM Q15MIN PRN BG <70, and no IV access Immune Globulin 20 gm/ Immune 250 mls @ 40 mls/hr 05/07/24 19:00 05/09/24 18:52 Globulin 5 gm/ IV IV 05/12/24 01:14 40 mls/hr Miscellaneous Supplies QDAY@1900 PARDEEP Administration Ceftriaxone Sodium 2 gm/ 50 mls @ 100 mls/hr 05/10/24 09:00 05/10/24 09:49 Sodium Chloride IV 05/12/24 14:29 100 mls/hr QDAY PARDEEP Administration Insulin Human Lispro 0 unit 05/06/24 11:30 05/10/24 11:15 Insulin Lispro (Admelog) 1 Unit/0.01 Ml Unit SC 06/05/24 11:29 Not Given ACHS PARDEEP Protocol Lactulose 20 gm 05/03/24 09:00 05/10/24 09:49 Lactulose Syrup 20 Gm/30 Ml Udc PO 06/02/24 08:59 20 gm BID PRADEEP Administration Protocol Metoprolol Succinate 50 mg 05/05/24 14:45 05/09/24 21:02 Metoprolol Succinate Xl 25 Mg Tabcr PO 06/04/24 14:44 50 mg QPM PARDEEP Administration Ondansetron HCl 4 mg 05/03/24 01:53 05/03/24 15:37 Ondansetron Inj 2 Mg/Ml Inj 2 Ml IV 06/02/24 01:52 4 mg Q6H PRN Administration NAUSEA OR VOMITING Protocol Trazodone HCl 100 mg 05/08/24 21:00 05/09/24 21:00 Trazodone Hcl 50 Mg Tablet PO 06/07/24 20:59 100 mg HS PARDEEP Administration Plan 83-year-old male with past medical history of A-fib on Eliquis, hypertension, osteoarthritis, chronic back pain on opioids, and bradycardia s/p pacemaker was admitted to the hospital on 05/03/2024 due to sepsis likely secondary to pneumonia as well as acute encephalopathy. #Paraplegia #Ground-level fall #Syncope versus OD #Urinary incontinence #Osteomyelitis/Discitis #Tranverse myelitis #Atypical GBS ?Patient came in with inability to move his lower extremities after being found on the floor by his ex-. ? Patient stated that he took 3 oxycodone's, marijuana, and Xanax prior to his fall and he did not remember anything afterwards. ? Teleneurology initially stated to transfer patient as there was high suspicion for cauda equina given patient's presentation of lower extremity weakness/immobility and urinary incontinence ?MRI cervical spine showed C6-C7 bilateral neural foraminal stenosis ?Lumbar spine MRI showed suspicion for mild osteomyelitis with discitis at L2-L3 ?Thoracic spine MRI did not show any abnormal enhancing epidural tumor. ?Thoracic spine CT showed degenerative disc disease ? Lumbar spine CT showed multiple schmorls' nodes -Blood Cx negative in 48 hrs ? Neurology suspects transverse myelitis versus atypical GBS. ?Lumbar puncture showed increased protein levels. Plan: ? Continue Rocephin and Doxy total of 8 weeks . 2 gm rocephin once daily and doxycycline 100 bid till jun2024 ? Continue IVIG (day 4 today) - Ordered Hantavirus send out ? Neurology consulted, appreciate recommendations ? ID consulted, appreciate recommendations ? Brain MRI with and without contrast penidng #Sepsis likely secondary to community-acquired pneumonia #Cocci pneumonia #Acute encephalopathy #Possible opioid and benzodiazepine overdose #Hx of chronic low back pain #Leukocytosis #Hypotension ?Patient came in with altered mental status and there was suspicion for overdose from opioids and benzodiazepines to which he admitted to taking 3 oxycodone's as well as Xanax and marijuana prior to the episode of loss of conscious and being found in the floor. ? U tox was positive for opioids and benzos. ? Chest x-ray showed pneumonia ?Patient came in with WBCs of 14.2 today 5.4 ? Blood pressure was on the softer side -Blood Cx negative in 48 hrs -Cocci positive -PICC line insterted by IR Plan: ? Continue Rocephin and Doxy total of 8 weeks . 2 gm rocephin once daily and doxycycline 100 bid till jun2024 -Continue fluconazole ? Will continue to monitor #Hx of hypertension ? Continue metoprolol XL 50mg qday #Hx of A-fib, rate controlled -Continue Eliquis -resume metoprolol XL 50mg qday #Hx of psych disorders -DC'd Zoloft and mirtazapine -Started Cymbalta Disposition: Patient seen in telemetry continue IVIG (day 4 today), fluconazole, Rocephin, Doxy, no improvement in TIBURCIO LE. Diet: cardiac GI prophylaxis: not indicated DVT prophylaxis: Eliquis Code:full Case disclosed with Attending Dr. Leyva and my senior Dr. Galan PGY 3 Ion Haines PGY1 Attending Provider Attestation/Addendum I have examined the patient, reviewed labs and imaging findings, discussed the case with the resident(s), and reviewed entered orders. I agree with the plan of care as outlined in this note, with these additional summaries/recommendations: Patient seen at bedside. No acute overnight events. Patient continues to be unable to move his bilateral lower extremities. Neurology following and patient receiving IVIG with pretreatment medications for likely transverse myelitis. We will continue to monitor for improvement. Patient on day 4 out of 5 IVIG. Discussed with patient that it may take months to regain some lower extremity strength. Patient was also found to have osteomyelitis/discitis at L2-L3. Status post PICC line and will receive 8 weeks in total of IV Rocephin 2 g daily and p.o. Doxy 100 mg twice daily with weekly labs. Blood cultures show no growth to date and CSF analysis showed total protein greater than 250. IgM cocci returned positive and receiving fluconazole. Sertraline and mirtazapine discontinued and patient started on Cymbalta. Continue Eliquis for history of atrial fibrillation and metoprolol. Patient updated on the plan and in agreement. Repeat hematology and chemistry panel in AM. Dr. Leyva
--- NOTE | 2024-05-10 14:33 | PC.SS ---
Rounding Note: Plan is to d/c the patient tomorrow.
--- NOTE | 2024-05-10 15:21 | PC.SS ---
Follow up note: SS contacted daughter, Pamella, to discuss final d/c orders. Discussed acute rehab vs SNF. Daughter preferred SNF so patient can have a longer stay. Patient will d/c to [facility] possibly over weekend. IMM completed with daughter via p/c.
--- NOTE | 2024-05-10 17:43 | EKG_ITS ---
[facility] Test Date: 2024-05-10 Pat Name: ALEJANDRA YA Department: Room: S271A Gender: Male Tank Crewmember: BRIAN : 1940 Requested By: Eden Galan Order Number: [id number] Reading MD: Eden Galan Measurements Intervals [place] Rate: 106 P: MN: QRS: 46 QRSD: 87 T: 32 QT: 356 QTc: 473 Interpretive Statements ATRIAL FIBRILLATION WITH RAPID VENTRICULAR RESPONSE WITH ABERRANT CONDUCTION OR VENTRICULAR PREMATURE COMPLEXES VOLTAGE CRITERIA FOR LVH ST DEPRESSION, CONSIDER SUBENDOCARDIAL INJURY WARNING: DATA QUALITY MAY AFFECT INTERPRETATION Compared to ECG 05/02/2024 17:34:14 Ventricular premature complex(es) now present Aberrant conduction of supraventricular beat(s) now present Left ventricular hypertrophy now present ST (T wave) deviation now present Incomplete right bundle-branch block no longer present T-wave abnormality no longer present /store/S0/[id number]/ecg/[id number].pdf
[2024-05-10] MEDS: METOPROLOL TARTRATE INJ 1 MG/ML AMP 5 ML 5 MG IVP (17:58)
[2024-05-10] MEDS: DiphenhydrAMINE INJ 50 MG/ML VIAL 25 MG IV (18:32)
[2024-05-10] MEDS: ACETAMINOPHEN 325 MG TABLET 650 MG PO (18:32)
[2024-05-10] MEDS: IMMUNE GLOB GA CA IV (19:01)
[2024-05-10] MEDS: PRE MIXED IV (19:01)
[2024-05-10] MEDS: METOPROLOL SUCCINATE XL 25 MG TABCR 50 MG PO (21:38)
[2024-05-10] MEDS: traZODone HCL 50 MG TABLET 100 MG PO (21:39)
--- NOTE | 2024-05-10 23:41 | ESPR_ITS ---
Documentation for date of: 05/10/24 Subjective Subjective Interval history: Patient seen in telemetry today, continue to have paraplegia with lack of sensation and bladder control. Has indwelling catheter in place. The back pain is not so bad, and he is able to feel the lower extremities unlike before. Tolerating intravenous immunoglobulin without any side effects. Exam - Neurology Vital Signs Temp Pulse Resp BP Pulse Ox O2 Del Method O2 Flow Rate 97.9 F 106 H 18 127/80 96 Room Air 2 05/10/24 20:00 05/10/24 21:38 05/10/24 20:00 05/10/24 21:38 05/10/24 20:00 05/10/24 20:00 05/09/24 04:00 Narrative Exam GENERAL APPEARANCE: Well hydrated, well-nourished in no acute distress. HEENT: Normocephalic, atraumatic, extraocular movements intact. Pupils: Equal reacting to light and accommodation NECK: Supple, no JVD or bruits. CARDIOVASULAR: Heart: S1, S2 heard, regular without S3-S4 or murmur no rubs or gallops. LUNGS/CHEST: Clear to auscultation bilaterally. No rails, rhonchi, or wheezing. Normal inspection. ABDOMEN: Soft, nontender, with normal bowel sounds. No pulsatile masses. No rebound, rigidity, or guarding. Normal inspection and palpation. EXTREMITIES: Normal inspection and palpation. No edema, clubbing or cyanosis. SKIN: Warm and dry without rashes. Normal inspection. MUSCULOSKELETAL: No cervical, thoracic, lumbar or midline bony tenderness. Normal inspection. NEURO: Alert, awake and oriented x3. Cranial nerves: II through XII grossly intact. Speech and language: Normal with no dysarthria or dysphasia. Motor system: Tone and bulk: Normal: Strength: 5 out of 5 in both upper extremities extremities; he has dense paraplegia in both lower extremities. Deep tendon reflexes: Absent knee jerk and ankle jerk bilaterally. Plantar reflex: Downgoing bilaterally. Sensory system: improved all modalities of sensation below the waist. coordination: Intact to [id number] test bilaterally. No ataxia, no dysmetria, or dysdiadochokinesia noted. No intention tremors noted. Gait: Could not be tested. No signs of meningeal irritation noted. PSYCHIATRIC: Significantly depressed, talked about his 's recently. Objective Labs 05/10/24 04:33 05/10/24 04:33 Labs: Laboratory Results - last 24 hr 05/10/24 04:33 WBC 4.7 RBC 3.50 L Hgb 11.7 L Hct 35.4 L MCV 101 H MCH 33.4 MCHC 33.1 RDW Std Deviation 55.0 H Plt Count 272 Neut % (Auto) 56 Lymph % (Auto) 29 [place] % (Auto) 9 Eos % (Auto) 4 Baso % (Auto) 0 Neut # (Auto) 2.7 Lymph # (Auto) 1.4 [place] # (Auto) 0.4 Eos # (Auto) 0.2 Baso # (Auto) 0.0 Immature Gran # (Auto) 0.07 H Absolute Nucleated RBC 0.00 Immature Gran % 2 H Nucleated RBC % 0 Sodium 136 Potassium 3.8 Chloride 104 Carbon Dioxide 25.8 Anion Gap 6 L BUN 22 Creatinine 0.8 Estim Creat Clear Calc 64.1 eGFR > 60 BUN/Creatinine Ratio 28 H Glucose 86 Calculated Osmolality 274 L Calcium 9.1 Corrected Calcium 9.7 Magnesium 2.0 Total Bilirubin 0.3 AST 24 ALT 17 Alkaline Phosphatase 107 Total Protein 7.7 Albumin 3.3 L Globulin 4.4 H Albumin/Globulin Ratio 0.8 L Assessment & Plan Assessment and plan (1) Generalized weakness: Status: Acute Assessment and plan: 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 As the imaging findings remain unchanged in the lumbar spine in the last 2 years, with history of frequent falls and not sure about his baseline ambulatory status, underwent lumbar puncture by interventional radiology to rule out transverse myelitis. As there is significant elevation of protein in the CSF, started him on IVIG therapy for 5 days. Continue with passive range of motion to prevent contracture Need intense acute rehab when he finishes the 5 days treatment. Made changes to his antidepressant regimen: Discontinued sertraline and mirtazapine and added Cymbalta for dual benefits.
[2024-05-11] VITALS (11 sets, daily range): BP systolic 107–123; BP diastolic 61–84; PULSE 69–108; RESP 13–96; TEMP 36.2–36.9; O2SAT 95–97; BMI 19.8
[2024-05-11 05:49] LABS: Basophils % (Auto) 0 % (0-2.5); Eosinophils # (Auto) 0.2 Thou/mm3 (0.0-0.5); Eosinophils % (Auto) 3 % (0-10); Hematocrit 33.5 % (41.0-53.0); Immature Granulocytes % (Auto) 1 % (0-0); Immature Granulocytes Auto 0.07 Thou/mm3 (0.00-0.00); Lymphocytes # (Auto) 1.6 Thou/mm3 (1.0-4.8); Lymphocytes % (Auto) 27 % (10-50); Mean Corpuscular HGB Conc 32.8 g/dl (31.0-37.0); Mean Corpuscular Hemoglobin 33.3 pg (25.0-35.0); Mean Corpuscular Volume 102 fL (80-100); Monocytes # (Auto) 0.5 Thou/mm3 (0.0-0.8); Monocytes % (Auto) 9 % (0-12); Neutrophils # (Auto) 3.5 Thou/mm3 (1.8-7.7); Neutrophils % (Auto) 59 % (37-80); Nucleated Red Blood Cell % 0 /100 WBC (0); Platelet Count 271 Thou/mm3 (140-440); RDW Standard Deviation 53.8 fL (35.1-43.9); White Blood Count 5.8 Thou/mm3 (3.8-10.6)
[2024-05-11 06:17] LABS: Alanine Aminotransferase 21 U/L (10-49); Albumin, Serum 3.1 gm/dL (3.4-4.8); Albumin/Globulin Ratio 0.7 (1.2-2.2); Alkaline Phosphatase 105 U/L (46-116); Anion Gap 4 (7-16); Aspartate Amino Transferase 24 U/L (0-34); BUN/Creatinine Ratio 26 Ratio (12-20); Bilirubin,Total 0.3 mg/dL (0.3-1.2); Blood Urea Nitrogen 18 mg/dL (9-23); Calcium (Corrected) 9.7 mg/dL (8.5-10.1); Carbon Dioxide 27.8 mMol/L (20.0-31.0); Chloride 105 mMol/L (98-107); Creatinine (Component) 0.7 mg/dL (0.6-1.3); Estimated Creatinine Clearance 71.5 mL/min (>60); Globulin 4.2 gm/dL (2.3-3.5); Glucose 97 mg/dL (74-106); Magnesium 1.9 mg/dL (1.6-2.6); Osmolality,Calculated 275 (275-295); Phosphorous 3.2 mg/dL (2.4-5.1); Potassium 4.2 mMol/L (3.4-5.1); Sodium 137 mMol/L (136-145); Total Protein 7.3 gm/dL (5.7-8.2); eGFR > 60 See Note
[2024-05-11] MEDS: DOXYCYCLINE 100 MG TABLET PO ×2 (09:11→19:59)
[2024-05-11] MEDS: FLUCONAZOLE 100 MG TABLET 400 MG PO (09:11)
[2024-05-11] MEDS: APIXABAN 2.5 MG TABLET 5 MG PO ×2 (09:12→19:59)
[2024-05-11] MEDS: DULoxetine HCL 30 MG CAPSULE PO (10:45)
[2024-05-11] MEDS: METOPROLOL SUCCINATE XL 25 MG TABCR 50 MG PO (10:50)
--- NOTE | 2024-05-11 11:40 | PC.SS ---
GROUP HOME PARAPROFESSIONAL met with pt regarding transportation to [facility], pt stated that a friend named Mattrojas Grandas [phone] could possibly assist with transportation, GROUP HOME PARAPROFESSIONAL to follow up with friend.
--- NOTE | 2024-05-11 11:59 | PC.SS ---
SHEET METAL INSULATOR followed up with pt regarding transportation due to pt's insurance not covering transporation to [facility], pt stated that he could not pay for transportation [employer] will be needed, SHEET METAL INSULATOR attempted to call [employer] to see if pt's private insurance covers and [employer] stated they did not.
--- NOTE | 2024-05-11 14:27 | PC.SS ---
is now recommending acute rehab, OPERATIONAL INTELLIGENCE ANALYST submitted referrals via [facility].
--- NOTE | 2024-05-11 14:43 | ESPR_ITS ---
Documentation for date of: 05/11/24 Subjective Subjective Interval history: The patient was interviewed and examined at the bedside this morning. He reported he still unable to move his lower limbs. He was mildly anxious because he was thinking that he would need to arrange for his acute rehab. He denied any headache, sore throat, chest pain, abdominal pain, or leg swelling. He received the final 5th-day course of IVIG. Exam Vital Signs Temp Pulse Resp BP Pulse Ox O2 Del Method O2 Flow Rate 97.6 F 75 20 122/68 97 Room Air 2 05/11/24 12:00 05/11/24 12:00 05/11/24 12:00 05/11/24 12:05/11/24 12:05/11/24 12:05/09/24 04:00 Narrative Exam General: A/O x3, ill-appearing Eyes: PERRL, EOMI. Anicteric, vision grossly intact. Ears: No ear pain, no ear discharge, Hearing impaired. Nose: No nasal discharge. Mouth/Throat: Dry mucous membranes, no redness, no lesions. Neck: Neck supple, non-tender, no cervical lymphadenopathy. Lungs: Clear TIBURCIO to auscultation and percussion, No accessory muscle use. Cardio: Normal S1/S2, irregular rhythm, no murmurs, no JVD Abdomen: Soft,but distended, non-tender, no palpable masses, peristalsis present, no guarding or rebound. Extremities: Symmetrical, no significant deformities, trace peripheral edema , non-tender, peripheral pulses presents. Skin: No rashes, no lesions, warm to touch. Neuro: Still unable to move Tiburcio LE, sensation decreased in TIBURCIO LE, but improving, UE strength/sensation intact, a little bit less withdrawn and more engaging today Objective Labs 05/12/24 05:30 05/12/24 05:30 Labs: Laboratory Results - last 24 hr 05/11/24 05:25 WBC 5.8 RBC 3.30 L Hgb 11.0 L Hct 33.5 L MCV 102 H MCH 33.3 MCHC 32.8 RDW Std Deviation 53.8 H Plt Count 271 Neut % (Auto) 59 Lymph % (Auto) 27 [place] % (Auto) 9 Eos % (Auto) 3 Baso % (Auto) 0 Neut # (Auto) 3.5 Lymph # (Auto) 1.6 [place] # (Auto) 0.5 Eos # (Auto) 0.2 Baso # (Auto) 0.0 Immature Gran # (Auto) 0.07 H Absolute Nucleated RBC 0.00 Immature Gran % 1 H Nucleated RBC % 0 Sodium 137 Potassium 4.2 Chloride 105 Carbon Dioxide 27.8 Anion Gap 4 L BUN 18 Creatinine 0.7 Estim Creat Clear Calc 71.5 eGFR > 60 BUN/Creatinine Ratio 26 H Glucose 97 Calculated Osmolality 275 Calcium 9.0 Corrected Calcium 9.7 Phosphorus 3.2 Magnesium 1.9 Total Bilirubin 0.3 AST 24 ALT 21 Alkaline Phosphatase 105 Total Protein 7.3 Albumin 3.1 L Globulin 4.2 H Albumin/Globulin Ratio 0.7 L Quality Measures Quality Measures VTE prophylaxis Advance care planning discussed with:: patient Assessment & Plan Assessment Current Active Medications: Generic Name Dose Route Start Last Admin Trade Name Freq PRN Reason Stop Dose Admin Acetaminophen 650 mg 05/03/24 01:53 Acetaminophen 325 Mg Tablet PO 06/02/24 01:52 Q6H PRN Fever >100.4 or Pain Acetaminophen 650 mg 05/07/24 18:30 05/10/24 18:32 Acetaminophen 325 Mg Tablet PO 05/11/24 18:31 650 mg QDAY@1830 PARDEEP Administration Albuterol/Ipratropium 3 ml 05/03/24 01:59 Albuterol/Ipratropium (Duoneb) Rt Eve 3 Ml Nebu INH 06/02/24 06:59 Q6HRRT PRN Shortness of breath or wheezing Apixaban 5 mg 05/08/24 21:00 05/11/24 09:12 Apixaban 2.5 Mg Tablet PO 06/07/24 20:59 5 mg BID PARDEEP Administration Dextrose 25 ml 05/06/24 10:09 Dextrose 50%-Water Inj 50 Ml Syringe IV 06/05/24 10:08 Q15MIN PRN BG 50-70 responsive npo pt Dextrose 50 ml 05/06/24 10:09 Dextrose 50%-Water Inj 50 Ml Syringe IV 06/05/24 10:08 Q15MIN PRN BG <50 OR BG <70 & pt unresponsive Diphenhydramine HCl 25 mg 05/07/24 18:30 05/10/24 18:32 Diphenhydramine Inj 50 Mg/Ml Vial IV 05/11/24 18:31 25 mg QDAY@1830 PARDEEP Administration Doxycycline Hyclate 100 mg 05/07/24 10:15 05/11/24 09:11 Doxycycline 100 Mg Tablet PO 05/14/24 10:14 100 mg BID PARDEEP Administration Duloxetine HCl 30 mg 05/10/24 09:00 05/11/24 10:45 Duloxetine Hcl 30 Mg Capsule PO 06/09/24 08:59 30 mg QDAY PARDEEP Administration Fluconazole 400 mg 05/08/24 09:00 05/11/24 09:11 Fluconazole 100 Mg Tablet PO 05/15/24 08:59 400 mg QDAY PARDEEP Administration Glucagon 1 mg 05/06/24 10:09 Glucagon Inj 1 Mg Vial IM Q15MIN PRN BG <70, and no IV access Immune Globulin 20 gm/ Immune 250 mls @ 40 mls/hr 05/07/24 19:00 05/10/24 19:01 Globulin 5 gm/ IV IV 05/12/24 01:14 40 mls/hr Miscellaneous Supplies QDAY@1900 PARDEEP Administration Ceftriaxone Sodium 2 gm/ 50 mls @ 100 mls/hr 05/10/24 09:00 05/11/24 10:44 Sodium Chloride IV 05/12/24 14:29 100 mls/hr QDAY PARDEEP Administration Insulin Human Lispro 0 unit 05/06/24 11:30 05/11/24 12:23 Insulin Lispro (Admelog) 1 Unit/0.01 Ml Unit SC 06/05/24 11:29 Not Given ACHS [facility] Protocol Lactulose 20 gm 05/12/24 10:15 Lactulose Syrup 20 Gm/30 Ml Udc PO 06/11/24 10:14 QDAY [facility] Protocol Metoprolol Succinate 50 mg 05/11/24 10:15 05/11/24 10:50 Metoprolol Succinate Xl 25 Mg Tabcr PO 06/10/24 10:14 50 mg QDAY PARDEEP Administration Ondansetron HCl 4 mg 05/03/24 01:53 05/03/24 15:37 Ondansetron Inj 2 Mg/Ml Inj 2 Ml IV 06/02/24 01:52 4 mg Q6H PRN Administration NAUSEA OR VOMITING Protocol Trazodone HCl 100 mg 05/08/24 21:00 05/10/24 21:39 Trazodone Hcl 50 Mg Tablet PO 06/07/24 20:59 100 mg HS PARDEEP Administration Plan 83-year-old male with past medical history of A-fib on Eliquis, hypertension, osteoarthritis, chronic back pain on opioids, and bradycardia s/p pacemaker was admitted to the hospital on 05/03/2024 due to sepsis likely secondary to pneumonia as well as acute encephalopathy. #Paraplegia #Ground-level fall #Syncope versus OD #Urinary incontinence #Osteomyelitis/Discitis #Tranverse myelitis #Atypical GBS ?Patient came in with inability to move his lower extremities after being found on the floor by his ex-. ? Patient stated that he took 3 oxycodone's, marijuana, and Xanax prior to his fall and he did not remember anything afterwards. ? Teleneurology initially stated to transfer patient as there was high suspicion for cauda equina given patient's presentation of lower extremity weakness/immobility and urinary incontinence ?MRI cervical spine showed C6-C7 bilateral neural foraminal stenosis ?Lumbar spine MRI showed suspicion for mild osteomyelitis with discitis at L2-L3 ?Thoracic spine MRI did not show any abnormal enhancing epidural tumor. ?Thoracic spine CT showed degenerative disc disease ? Lumbar spine CT showed multiple schmorls' nodes -Blood Cx negative in 48 hrs ? Neurology suspects transverse myelitis versus atypical GBS. ?Lumbar puncture showed increased protein levels. Plan: ? Continue Rocephin and Doxy total of 8 weeks . 2 gm rocephin once daily and doxycycline 100 bid till jun2024 ? Completed IVIG for 5 days - Ordered Hantavirus send out ? Neurology consulted, appreciate recommendations ? ID consulted, appreciate recommendations ? Brain MRI with and without contrast penidng #Sepsis likely secondary to community-acquired pneumonia #Cocci pneumonia #Acute encephalopathy #Possible opioid and benzodiazepine overdose #Hx of chronic low back pain #Leukocytosis #Hypotension ?Patient came in with altered mental status and there was suspicion for overdose from opioids and benzodiazepines to which he admitted to taking 3 oxycodone's as well as Xanax and marijuana prior to the episode of loss of conscious and being found in the floor. ? U tox was positive for opioids and benzos. ? Chest x-ray showed pneumonia ?Patient came in with WBCs of 14.2 today 5.4 ? Blood pressure was on the softer side -Blood Cx negative in 48 hrs -Cocci positive -PICC line insterted by IR Plan: ? Continue Rocephin and Doxy total of 8 weeks . 2 gm rocephin once daily and doxycycline 100 bid till jun2024 -Continue fluconazole ? Will continue to monitor #Hx of hypertension ? Continue metoprolol XL 50mg qday #Hx of A-fib, rate controlled -Continue Eliquis -resume metoprolol XL 50mg qday #Hx of psych disorders -DC'd Zoloft and mirtazapine -Started Cymbalta Disposition: Pending acute rehab/SNF placement Diet: cardiac GI prophylaxis: not indicated DVT prophylaxis: Eliquis Code:full The patient's management plan was discussed with my attending physician MD Jaxon Quick MD, PGY2 Attending Provider Attestation/Addendum I have examined the patient, reviewed labs and imaging findings, discussed the case with the resident(s), and reviewed entered orders. I agree with the plan of care as outlined in this note, with these additional summaries/recommendations: Patient seen at bedside. No acute overnight events. Patient continues to be unable to move his bilateral lower extremities but does report some improvement in sensation today. Neurology following and patient receiving IVIG with pretreatment medications for likely transverse myelitis. We will continue to monitor for improvement. Patient on day 5 out of 5 IVIG. Patient was also found to have osteomyelitis/discitis at L2-L3. Status post PICC line and will receive 8 weeks in total of IV Rocephin 2 g daily and p.o. Doxy 100 mg twice daily with weekly labs. Blood cultures show no growth to date and CSF analysis showed total protein greater than 250. IgM cocci returned positive and receiving fluconazole. Sertraline and mirtazapine discontinued and patient started on Cymbalta. Continue Eliquis for history of atrial fibrillation and metoprolol. Patient had episode of RVR yesterday that resolved with metoprolol push. Case management arranging discharge facility. Patient updated on the plan and in agreement. Repeat hematology and chemistry panel in AM. Dr. Leyva
--- NOTE | 2024-05-11 16:04 | PC.SS ---
COPYING MACHINE MECHANIC spoke to pt about actue rehab and pt stated that he did not want to go to acute rehab, COPYING MACHINE MECHANIC called pt's daughter and daughter stated that she wanted pt to go to a SNF because she feels like 3 hours of PT a day is to much, pt's daughter is requesting for COPYING MACHINE MECHANIC to help [place]; COPYING MACHINE MECHANIC submitted referrals to SNF's near her home.
--- NOTE | 2024-05-11 16:14 | PC.SS ---
SILK SCREEN CUTTER spoke to about pt's and daughter's request, and about daughter asking for SNF referrals [place], SILK SCREEN CUTTER explained that daughter stated that she would pick pt up and drive pt to SNF if any accepted [place].
[2024-05-11] MEDS: ACETAMINOPHEN 325 MG TABLET 650 MG PO (18:20)
[2024-05-11] MEDS: DiphenhydrAMINE INJ 50 MG/ML VIAL 25 MG IV (18:21)
[2024-05-11] MEDS: PRE MIXED IV (18:53)
[2024-05-11] MEDS: IMMUNE GLOB GA CA IV (18:53)
[2024-05-11] MEDS: traZODone HCL 50 MG TABLET 100 MG PO (19:59)
[2024-05-12] VITALS (7 sets, daily range): BP systolic 117–135; BP diastolic 71–89; PULSE 70–79; RESP 15–28; TEMP 36.2–36.7; O2SAT 95–97; BMI 21.2
--- NOTE | 2024-05-12 | PD.VPROG1 ---
Telemedicine visit statement This visit was conducted with the use of phone visit was obtained on 05/12/24. Documentation for date of: 05/12/24 Subjective Subjective Interval history: Patient is in telemetry, continue to have the weakness in both LE and numbness with bladder involvement. Virtual exam Vital Signs Temp Pulse Resp BP Pulse Ox O2 Del Method O2 Flow Rate 98.3 F 71 15 119/61 97 Room Air 2 05/11/24 23:54 05/11/24 23:54 05/11/24 23:54 05/11/24 23:54 05/11/24 23:54 05/11/24 23:54 05/09/24 04:00 Objective Labs 05/11/24 05:25 05/11/24 05:25 Labs: Laboratory Results - last 24 hr 05/11/24 05:25 WBC 5.8 RBC 3.30 L Hgb 11.0 L Hct 33.5 L MCV 102 H MCH 33.3 MCHC 32.8 RDW Std Deviation 53.8 H Plt Count 271 Neut % (Auto) 59 Lymph % (Auto) 27 [place] % (Auto) 9 Eos % (Auto) 3 Baso % (Auto) 0 Neut # (Auto) 3.5 Lymph # (Auto) 1.6 [place] # (Auto) 0.5 Eos # (Auto) 0.2 Baso # (Auto) 0.0 Immature Gran # (Auto) 0.07 H Absolute Nucleated RBC 0.00 Immature Gran % 1 H Nucleated RBC % 0 Sodium 137 Potassium 4.2 Chloride 105 Carbon Dioxide 27.8 Anion Gap 4 L BUN 18 Creatinine 0.7 Estim Creat Clear Calc 71.5 eGFR > 60 BUN/Creatinine Ratio 26 H Glucose 97 Calculated Osmolality 275 Calcium 9.0 Corrected Calcium 9.7 Phosphorus 3.2 Magnesium 1.9 Total Bilirubin 0.3 AST 24 ALT 21 Alkaline Phosphatase 105 Total Protein 7.3 Albumin 3.1 L Globulin 4.2 H Albumin/Globulin Ratio 0.7 L Assessment & Plan Assessment 1) Generalized weakness: Status: Acute Assessment and plan: 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 As the imaging findings remain unchanged in the lumbar spine in the last 2 years, with history of frequent falls and not sure about his baseline ambulatory status, underwent lumbar puncture by interventional radiology to rule out transverse myelitis. As there is significant elevation of protein in the CSF, started him on IVIG therapy for 5 days. Continue with passive range of motion to prevent contracture Need intense acute rehab when he finishes the 5 days treatment. Continue Cymbalta for dual benefits.
[2024-05-12 05:56] LABS: Basophils % (Auto) 0 % (0-2.5); Eosinophils # (Auto) 0.1 Thou/mm3 (0.0-0.5); Eosinophils % (Auto) 2 % (0-10); Hemoglobin 11.6 g/dL (13.5-16.0); Immature Granulocytes % (Auto) 1 % (0-0); Immature Granulocytes Auto 0.08 Thou/mm3 (0.00-0.00); Lymphocytes # (Auto) 1.4 Thou/mm3 (1.0-4.8); Lymphocytes % (Auto) 22 % (10-50); Mean Corpuscular HGB Conc 33.1 g/dl (31.0-37.0); Mean Corpuscular Hemoglobin 34.2 pg (25.0-35.0); Mean Corpuscular Volume 103 fL (80-100); Monocytes # (Auto) 0.4 Thou/mm3 (0.0-0.8); Monocytes % (Auto) 7 % (0-12); Neutrophils # (Auto) 4.1 Thou/mm3 (1.8-7.7); Neutrophils % (Auto) 67 % (37-80); Nucleated Red Blood Cell % 0 /100 WBC (0); Platelet Count 261 Thou/mm3 (140-440); RDW Standard Deviation 55.5 fL (35.1-43.9); Red Blood Count 3.39 Miln/mm3 (4.50-5.90); White Blood Count 6.2 Thou/mm3 (3.8-10.6)
[2024-05-12 06:21] LABS: Alanine Aminotransferase 20 U/L (10-49); Albumin, Serum 3.2 gm/dL (3.4-4.8); Albumin/Globulin Ratio 0.7 (1.2-2.2); Alkaline Phosphatase 110 U/L (46-116); Anion Gap 5 (7-16); Aspartate Amino Transferase 32 U/L (0-34); BUN/Creatinine Ratio 24 Ratio (12-20); Bilirubin,Total 0.3 mg/dL (0.3-1.2); Blood Urea Nitrogen 17 mg/dL (9-23); Calcium 8.9 mg/dL (8.3-10.6); Calcium (Corrected) 9.5 mg/dL (8.5-10.1); Carbon Dioxide 28.7 mMol/L (20.0-31.0); Chloride 103 mMol/L (98-107); Creatinine (Component) 0.7 mg/dL (0.6-1.3); Estimated Creatinine Clearance 76.3 mL/min (>60); Globulin 4.6 gm/dL (2.3-3.5); Glucose 100 mg/dL (74-106); Magnesium 1.9 mg/dL (1.6-2.6); Osmolality,Calculated 275 (275-295); Phosphorous 3.5 mg/dL (2.4-5.1); Sodium 137 mMol/L (136-145); Total Protein 7.8 gm/dL (5.7-8.2); eGFR > 60 See Note
--- NOTE | 2024-05-12 07:32 | PD.RESPRO ---
Documentation for date of: 05/12/24 Exam Vital Signs Temp Pulse Resp BP Pulse Ox O2 Del Method O2 Flow Rate 98.1 F 70 15 117/71 96 Room Air 2 05/12/24 04:00 05/12/24 04:00 05/12/24 04:00 05/12/24 04:00 05/12/24 04:00 05/12/24 04:00 05/09/24 04:00 Objective Labs 05/12/24 05:30 05/12/24 05:30 Labs: Laboratory Results - last 24 hr 05/12/24 05:30 WBC 6.2 RBC 3.39 L Hgb 11.6 L Hct 35.0 L MCV 103 H MCH 34.2 MCHC 33.1 RDW Std Deviation 55.5 H Plt Count 261 Neut % (Auto) 67 Lymph % (Auto) 22 [place] % (Auto) 7 Eos % (Auto) 2 Baso % (Auto) 0 Neut # (Auto) 4.1 Lymph # (Auto) 1.4 [place] # (Auto) 0.4 Eos # (Auto) 0.1 Baso # (Auto) 0.0 Immature Gran # (Auto) 0.08 H Absolute Nucleated RBC 0.00 Immature Gran % 1 H Nucleated RBC % 0 Sodium 137 Potassium 4.0 Chloride 103 Carbon Dioxide 28.7 Anion Gap 5 L BUN 17 Creatinine 0.7 Estim Creat Clear Calc 76.3 eGFR > 60 BUN/Creatinine Ratio 24 H Glucose 100 Calculated Osmolality 275 Calcium 8.9 Corrected Calcium 9.5 Phosphorus 3.5 Magnesium 1.9 Total Bilirubin 0.3 AST 32 ALT 20 Alkaline Phosphatase 110 Total Protein 7.8 Albumin 3.2 L Globulin 4.6 H Albumin/Globulin Ratio 0.7 L Quality Measures Quality Measures VTE prophylaxis Assessment & Plan Assessment Current Active Medications: Generic Name Dose Route Start Last Admin Trade Name Freq PRN Reason Stop Dose Admin Acetaminophen 650 mg 05/03/24 01:53 Acetaminophen 325 Mg Tablet PO 06/02/24 01:52 Q6H PRN Fever >100.4 or Pain Albuterol/Ipratropium 3 ml 05/03/24 01:59 Albuterol/Ipratropium (Duoneb) Rt Eve 3 Ml Nebu INH 06/02/24 06:59 Q6HRRT PRN Shortness of breath or wheezing Apixaban 5 mg 05/08/24 21:00 05/11/24 19:59 Apixaban 2.5 Mg Tablet PO 06/07/24 20:59 5 mg BID PARDEEP Administration Dextrose 25 ml 05/06/24 10:09 Dextrose 50%-Water Inj 50 Ml Syringe IV 06/05/24 10:08 Q15MIN PRN BG 50-70 responsive npo pt Dextrose 50 ml 05/06/24 10:09 Dextrose 50%-Water Inj 50 Ml Syringe IV 06/05/24 10:08 Q15MIN PRN BG <50 OR BG <70 & pt unresponsive Doxycycline Hyclate 100 mg 05/07/24 10:15 05/11/24 19:59 Doxycycline 100 Mg Tablet PO 05/14/24 10:14 100 mg BID PARDEEP Administration Duloxetine HCl 30 mg 05/10/24 09:00 05/11/24 10:45 Duloxetine Hcl 30 Mg Capsule PO 06/09/24 08:59 30 mg QDAY PARDEEP Administration Fluconazole 400 mg 05/08/24 09:00 05/11/24 09:11 Fluconazole 100 Mg Tablet PO 05/15/24 08:59 400 mg QDAY PARDEEP Administration Glucagon 1 mg 05/06/24 10:09 Glucagon Inj 1 Mg Vial IM Q15MIN PRN BG <70, and no IV access Ceftriaxone Sodium 2 gm/ 50 mls @ 100 mls/hr 05/10/24 09:00 05/11/24 10:44 Sodium Chloride IV 05/12/24 14:29 100 mls/hr QDAY PARDEEP Administration Insulin Human Lispro 0 unit 05/06/24 11:30 05/12/24 07:18 Insulin Lispro (Admelog) 1 Unit/0.01 Ml Unit SC 06/05/24 11:29 Not Given ACHS PARDEEP Protocol Lactulose 20 gm 05/12/24 10:15 Lactulose Syrup 20 Gm/30 Ml Udc PO 06/11/24 10:14 QDAY PARDEEP Protocol Metoprolol Succinate 50 mg 05/11/24 10:15 05/11/24 10:50 Metoprolol Succinate Xl 25 Mg Tabcr PO 06/10/24 10:14 50 mg QDAY PARDEEP Administration Ondansetron HCl 4 mg 05/03/24 01:53 05/03/24 15:37 Ondansetron Inj 2 Mg/Ml Inj 2 Ml IV 06/02/24 01:52 4 mg Q6H PRN Administration NAUSEA OR VOMITING Protocol Trazodone HCl 100 mg 05/08/24 21:00 05/11/24 19:59 Trazodone Hcl 50 Mg Tablet PO 06/07/24 20:59 100 mg HS PARDEEP Administration Plan 83-year-old male with past medical history of A-fib on Eliquis, hypertension, osteoarthritis, chronic back pain on opioids, and bradycardia s/p pacemaker was admitted to the hospital on 05/03/2024 due to sepsis likely secondary to pneumonia as well as acute encephalopathy. Vitals good, on 2 L, labs look okay Completed 5 days of IVIG, pending SNF Paraplegia Ground-level fall Syncope versus OD Urinary incontinence Osteomyelitis/Discitis Tranverse myelitis Atypical GBS ?Patient came in with inability to move his lower extremities after being found on the floor by his ex-. ? Patient stated that he took 3 oxycodone's, marijuana, and Xanax prior to his fall and he did not remember anything afterwards. ? Teleneurology initially stated to transfer patient as there was high suspicion for cauda equina given patient's presentation of lower extremity weakness/immobility and urinary incontinence ?MRI cervical spine showed C6-C7 bilateral neural foraminal stenosis ?Lumbar spine MRI showed suspicion for mild osteomyelitis with discitis at L2-L3 ?Thoracic spine MRI did not show any abnormal enhancing epidural tumor. ?Thoracic spine CT showed degenerative disc disease ? Lumbar spine CT showed multiple schmorls' nodes -Blood Cx negative in 48 hrs ? Neurology suspects transverse myelitis versus atypical GBS. ?Lumbar puncture showed increased protein levels. Plan: ? Continue Rocephin and Doxy total of 8 weeks . 2 gm rocephin once daily and doxycycline 100 bid till jun2024 ? Completed IVIG for 5 days - Ordered Hantavirus send out ? Neurology consulted, appreciate recommendations ? ID consulted, appreciate recommendations ? Brain MRI with and without contrast penidng #Sepsis likely secondary to community-acquired pneumonia #Cocci pneumonia #Acute encephalopathy #Possible opioid and benzodiazepine overdose #Hx of chronic low back pain #Leukocytosis #Hypotension ?Patient came in with altered mental status and there was suspicion for overdose from opioids and benzodiazepines to which he admitted to taking 3 oxycodone's as well as Xanax and marijuana prior to the episode of loss of conscious and being found in the floor. ? U tox was positive for opioids and benzos. ? Chest x-ray showed pneumonia ?Patient came in with WBCs of 14.2 today 5.4 ? Blood pressure was on the softer side -Blood Cx negative in 48 hrs -Cocci positive -PICC line insterted by IR Plan: ? Continue Rocephin and Doxy total of 8 weeks . 2 gm rocephin once daily and doxycycline 100 bid till jun2024 -Continue fluconazole ? Will continue to monitor #Hx of hypertension ? Continue metoprolol XL 50mg qday #Hx of A-fib, rate controlled -Continue Eliquis -resume metoprolol XL 50mg qday #Hx of psych disorders -DC'd Zoloft and mirtazapine -Started Cymbalta Disposition: Pending acute rehab/SNF placement Diet: cardiac GI prophylaxis: not indicated DVT prophylaxis: Eliquis Code:full The patient's management plan was discussed with my attending physician MD Jaxon Quick MD, PGY2
[2024-05-12] MEDS: METOPROLOL SUCCINATE XL 25 MG TABCR 50 MG PO (08:08)
[2024-05-12] MEDS: DULoxetine HCL 30 MG CAPSULE PO (08:10)
[2024-05-12] MEDS: DOXYCYCLINE 100 MG TABLET PO (08:10)
[2024-05-12] MEDS: APIXABAN 2.5 MG TABLET 5 MG PO (08:10)
[2024-05-12] MEDS: FLUCONAZOLE 100 MG TABLET 400 MG PO (08:10)
--- NOTE | 2024-05-12 08:49 | PC.SS ---
FASHION INTERN got a call from pt's daughter and daughter stated that she wants to go ahead and do what doctor recommends which is go with an acute rehab. FASHION INTERN followed up with [facility] and sent updated information from pt's progess, FASHION INTERN to follow up with pt and discuss recommendations from doctor.
--- NOTE | 2024-05-12 08:55 | PC.SS ---
Brass Chaser from [facility] called and was asking about pt's preference, REAMING MACHINE TENDER informed assistant sales center manager that at the moment pt does not have a preference but REAMING MACHINE TENDER will follow up with daughter and pt, and assistant sales center manager also stated she will try and find transportation for pt but will follow up with REAMING MACHINE TENDER.
--- NOTE | 2024-05-12 09:06 | PC.SS ---
LOGGING RAFTER LABORER called [facility] acute rehab to follow up on referral LOGGING RAFTER LABORER spoke to media marketing director (refused to give her name,) and asked to be transferred to the DON or drag out worker but she stated that they are not in on weekends, LOGGING RAFTER LABORER asked about referral follow up and she stated that they do not take referrals over the weekend and that she can not give out information on bed availability.
--- NOTE | 2024-05-12 09:35 | PC.SS ---
ENROLLMENT CLERK went to speak to pt about accepting facilities and informed pt that the only facility that has accepted pt is [facility], and pt stated that he would want to be closer to home but ENROLLMENT CLERK explained that [facility] has not got back to ENROLLMENT CLERK and ENROLLMENT CLERK explained to pt that it is not a guarantee that [facility] will accept pt, while speaking to PT ENROLLMENT CLERK noticed that pt was not to alert, ENROLLMENT CLERK called pt's daughter and explained to daughter about accepting facilities and stated that she is okay with pt going to [facility], ENROLLMENT CLERK to follow up with pt.
--- NOTE | 2024-05-12 09:56 | ESDS_ITS ---
Planned Discharge Date 05/12/24 DS: Providers Provider Date of admission: 05/03/24 01:51 Primary care physician: Junior Blount MD Admitting Provider: Kirby Camp MD Attending Provider on Admission: Zach Leyva MD Consults: 05/03/24 02:06 Referral Physical Therapy Stat Comment: Physician Instructions: 05/04/24 08:40 Referral - Mri Special Procedures Technologist Stat Service Needed for Transfer: Neurosurgery Addl Comments:: Patient needs neurospinal surgeon, or at least spinal surgeon to perform spinal surgery if needed. Thank you. 05/04/24 19:18 Consult to Neurology / Tele-Neurology Stat Comment: B/L LE motor and sensory deficits Consulting Provider: Malick Simpson 05/05/24 14:14 Consult to Infectious Diseases Routine Comment: Consulting Provider: Markus Foster Attending Provider on DC: Zach Leyva MD Discharging Provider: Zach Leyva MD DS: Diagnosis Problem List Completed Was Problem List Reviewed/Reconciled?: Yes Hospital Course Hospital Course Hospital course: This is an 83-year-old male with past medical history of A-fib on Eliquis, hypertension, osteoarthritis, chronic back pain on opioids, and bradycardia s/p pacemaker was admitted to the hospital on 05/03/2024 for sepsis pneumonia, acute encephalopathy, lower 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 Patient was seen by in-house neurologist. He completed a course of IVIG. 48-hour blood culture negative. Cocci IgM was positive. Lumbar puncture showed high protein level. Started the ANTIBIOTICS which will continue outpatient through PICC line at [facility]. RADIOGRAPHIC FINDINGS: * MRI cervical spine showed C6-C7 bilateral neural foraminal stenosis. * Lumbar spine MRI showed suspicion for mild osteomyelitis with discitis at L2- L3. * Thoracic spine MRI did not show any abnormal enhancing epidural tumor. * Thoracic spine CT showed degenerative disc disease. * Lumbar spine CT showed multiple schmorls' nodes. * MRI brain showed restricted diffusion of basal ganglia, suggestive of anoxic ischemic changes, less likely underlying neoplastic lesion but not excluded. * Head CT negative for acute hemorrhage, mass effect or midline shift. * CXR showed mild CHF and early left lobe pneumonia. * CT abdomen showed common bile duct 10 mm, bilateral renal calculi, 14 mm rona cification in the left pelvis in distribution of the distal left ureter, favor phlebolith, left ureterovesical junction calculus less likely as there is no left hydronephrosi. PATIENT INSTRUCTIONS: Follow-up with PCP within 1-2 weeks of discharge. Follow-up with neurology within 1-2 weeks of discharge. Continue working with physical therapy. Return to Emergency Room if symptoms persist, worsen, or new symptoms develop. Continue taking medications as prescribed below: ? Continue CEFTRIAXONE 2 mg IV daily (NEW) ? Continue DOXYCYCLINE 100 mg PO twice daily (NEW) ? Continue DULOXETINE 30 mg daily (NEW) ? Continue FLUCONAZOLE 400 mg daily (NEW) ? Continue Arginine 500 mg twice daily ? Continue ELIQUIS 5 mg twice daily ? Continue FINASTERIDE 5 mg daily ? Continue METOPROLOL SUCCINATE 50 mg daily at night ? Continue TAMSULOSIN 0.8 mg daily at night ? HOLD GABAPENTIN 300 mg until you see neurology. ? Stop taking ZYRTEC 10 mg daily ? Stop taking OLANZAPINE 5 mg twice daily ? Stop taking SERTRALINE 50 mg twice daily ADMISSION DIAGNOSES: #Paraplegia #Ground-level fall #Syncope versus OD #Urinary incontinence #Osteomyelitis/Discitis #Tranverse myelitis #Atypical GBS #Sepsis likely secondary to community-acquired pneumonia #Cocci pneumonia #Acute encephalopathy #Possible opioid and benzodiazepine overdose #Hx of chronic low back pain #Leukocytosis #Hypotension #Hx of hypertension #Hx of A-fib, rate controlled #Hx of psych disorders Patient case was discussed with attending, Zach Leyva MD and senior resident Dr. Galan. Henry Leon DO PGYI Time Spent with Patient Time attestation: Total time spent providing and/or coordinating discharge services: Greater than 35 minutes. Exam Vital Signs Temp Pulse Resp BP Pulse Ox O2 Del Method O2 Flow Rate 97.2 F 71 22 H 129/80 96 Room Air 2 05/12/24 08:00 05/12/24 08:08 05/12/24 08:00 05/12/24 08:08 05/12/24 08:00 05/12/24 08:00 05/09/24 04:00 Narrative Exam General: A/O x3, ill-appearing Eyes: PERRL, EOMI. Anicteric, vision grossly intact. Ears: No ear pain, no ear discharge, Hearing impaired. Nose: No nasal discharge. Mouth/Throat: Dry mucous membranes, no redness, no lesions. Neck: Neck supple, non-tender, no cervical lymphadenopathy. Lungs: Clear TIBURCIO to auscultation and percussion, No accessory muscle use. Cardio: Normal S1/S2, irregular rhythm, no murmurs, no JVD Abdomen: Soft,but distended, non-tender, no palpable masses, peristalsis present, no guarding or rebound. Extremities: Symmetrical, no significant deformities, trace peripheral edema , non-tender, peripheral pulses presents. Skin: No rashes, no lesions, warm to touch. Neuro: Still unable to move Tiburcio LE, sensation decreased in TIBURCIO LE, but improvi ng, UE strength/sensation intact, a little bit less withdrawn and more engaging today Discharge Plan Plan Patient Disposition: [facility] Facility Pt Being Transferred to: Other-Specify in comment Service Needed for Transfer: physical therapy Disposition Comment: Discharge to Acute Rehab for rehabilitation & continued aggressive daily PT Patient condition on transfer: Stable Prescriptions/Referrals Prescriptions/Med Rec: New doxycycline hyclate 100 mg Tablet 100 mg PO BID 56 Days Qty: 112 0RF ceftriaxone 2 gram recon soln 2 g IV Q24H 56 Days fluconazole 100 mg Tablet 400 mg PO QDAY 90 Days Qty: 360 0RF duloxetine 30 mg Capsule,Delayed Release(Dr/Ec) 30 mg PO QDAY Qty: 30 1RF Continued finasteride 5 mg Tablet 5 mg PO QDAY tamsulosin 0.4 mg Capsule 0.8 mg PO QPM Eliquis 5 mg tablet 5 mg PO BID Patient Comments: TAKE 1 TABLET BY MOUTH EVERY 12 HOURS metoprolol succinate 50 mg Tablet Extended Release 24 Hr 50 mg PO QPM arginine (L-arginine) 500 mg Capsule 500 mg PO UD Held gabapentin 300 mg Capsule 300 mg PO QID Hold Instructions: untill see primary Discontinued cetirizine [Zyrtec] 10 mg Tablet 10 mg PO QDAY olanzapine [Zyprexa] 5 mg Tablet 5 mg PO BID sertraline [Zoloft] 50 mg Tablet 50 mg PO BID Referrals: Junior Blount MD [Primary Care Provider] - Patient/Caregiver Discharge Instructions Other Discharge Activity Instructions:: Follow-up with PCP within 1-2 week of discharge. Follow-up with neurology, Dr. Simpson, within 1 week of discharge. Return to emergency room if symptoms persist, worsen or new symptoms develop. Continue taking medications as prescribed below: ? Continue CEFTRIAXONE 2 mg IV daily (NEW) ? Continue DOXYCYCLINE 100 mg PO twice daily (NEW) ? Continue DULOXETINE 30 mg daily (NEW) ? Continue FLUCONAZOLE 400 mg daily (NEW) ? Continue Arginine 500 mg twice daily ? Continue ELIQUIS 5 mg twice daily ? Continue FINASTERIDE 5 mg daily ? Continue METOPROLOL SUCCINATE 50 mg daily at night ? Continue TAMSULOSIN 0.8 mg daily at night ? HOLD GABAPENTIN 300 mg until you see neurology. ? Stop taking ZYRTEC 10 mg daily ? Stop taking OLANZAPINE 5 mg twice daily ? Stop taking SERTRALINE 50 mg twice daily Education Materials: Osteomyelitis Dc, ED Pneumonia (Adult) Print Language: American Stand Alone Forms: Roxanna Award Info., Patient Portal Info Letter Discharge Order Discharge Orders: Discharge (Routine); Ordered 05/12/24 Ordered By: Eden Galan Quality Discharge Quality Measures VTE prophylaxis and sepsis Attestestation MD Attestation I have examined the patient, reviewed labs and imaging findings, discussed the case with the resident(s), and reviewed entered orders. I agree with the plan of care as outlined in this note. Dr. Leyva
--- NOTE | 2024-05-12 10:03 | PC.SS ---
COMBAT[employer]MER spoke to Tracey from [facility] and they will be accepting pt, and ETA is 2:30pm, COMBATANT SWIMMER called nurse and updated nurse on ETA.
--- NOTE | 2024-05-12 13:29 | PC.NURSE ---
Report given to Veronica at [facility] at 1320.
[2024-05-16 17:51] LABS: West Nile Virus (IgG), CSF <1.30
[2024-05-17 07:03] LABS: West Nile Virus (IgM), CSF <0.90
== END 2024-05-12 14:45 | disposition skilled nursing facility (03) | DRG 872 ==
LOC: SERX 18:46 → SERHOLD 05-03 02:33 → S2NX 05-03 18:25
PROVIDERS: Emergency Medicine; Internal Medicine Infectious Disease; Student in an Organized Health Care Education/Training Program; Admitting Provider Internal Medicine; Emergency Provider Emergency Medicine; PCP Family Medicine; Visit Provider Student in an Organized Health Care Education/Training Program
DX: A41.89 Other specified sepsis (principal); G37.3 Acute transverse myelitis in demyelinating disease of central nervous system; G82.20 Paraplegia, unspecified; G93.40 Encephalopathy, unspecified; M46.26 Osteomyelitis of vertebra, lumbar region; Z59.19 Other inadequate housing; B38.2 Pulmonary coccidioidomycosis, unspecified; M19.90 Unspecified osteoarthritis, unspecified site; R65.20 Severe sepsis without septic shock; I48.91 Unspecified atrial fibrillation; I10 Essential (primary) hypertension; G89.29 Other chronic pain; T42.4X1A Poisoning by benzodiazepines, accidental (unintentional), initial encounter; T40.2X1A Poisoning by other opioids, accidental (unintentional), initial encounter; F41.9 Anxiety disorder, unspecified; K59.00 Constipation, unspecified; M48.02 Spinal stenosis, cervical region; M48.061 Spinal stenosis, lumbar region without neurogenic claudication; M85.88 Other specified disorders of bone density and structure, other site; I95.9 Hypotension, unspecified; N20.0 Calculus of kidney; R33.8 Other retention of urine; R00.1 Bradycardia, unspecified; M51.34 Other intervertebral disc degeneration, thoracic region; M46.46 Discitis, unspecified, lumbar region; N40.1 Benign prostatic hyperplasia with lower urinary tract symptoms; R29.6 Repeated falls; Z96.652 Presence of left artificial knee joint; Z96.643 Presence of artificial hip joint, bilateral; F17.210 Nicotine dependence, cigarettes, uncomplicated; Z95.0 Presence of cardiac pacemaker; Z79.01 Long term (current) use of anticoagulants; Z79.899 Other long term (current) drug therapy; Y92.009 Unspecified place in unspecified non-institutional (private) residence as the place of occurrence of the external cause
CPT/HCPCS: 36415; 70450; 70553; 71045; 72128; 72131; 72141; 72157; 72158; 74177; 77002; 80053; 80202; 80307; 80329; 81001; 82140; 82607; 82746; 82945; 83036; 83605; 83735; 83873; 83880; 83916; 84100; 84145; 84157; 84443; 84484; 85025; 85049; 85610; 85730; 86171; 86480; 86635; 86780; 86788; 86789; 86803; 87040; 87070; 87205; 87811; 89051; 93005; 96361; 96365; 96375; 97161; 99291; A4649; A9579; C1751; C1894; J0456; J0696; J1100; J1200; J1568; J1642; J1643; J1815; J2060; J2405; J3370; J3475; J3490; J7030; J7050; Q9967; A9270; G0480